=== PATIENT | female | born 1970 | race Caucasian/White ===

== ENCOUNTER 2017-01-16 08:18 | Inpatient (IN) | payer BC ==
--- NOTE | 2017-01-16 08:20 | EDM.PDOC ---
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 Code(s): M15.0 - Primary generalized (osteo)arthritis - Discharge Information - Problem List & Annotations (1) Ketoacidosis SNOMED Code(s): 15244752 Code(s): E87.2 - ACIDOSIS Status: Acute Priority: High Current Visit: Yes Onset Date: 01/16/17 Annotation/Comment:: Ketoacidosis likely secondary to decompensated IDDM from her cellulitis as below. No direct evidence of a UTI , although urine culture set up for culture and sensitivity. Insulin infusion regimen, including initial IV bolus of Humulin regular initiated in the emergency room (2) Cellulitis SNOMED Code(s): 758348267 Code(s): L03.90 - CELLULITIS, UNSPECIFIED Status: Acute Priority: High Current Visit: Yes Onset Date: ~01/13/17 Annotation/Comment:: Progressive cellulitis as above. Note significant leukocytosis with blood cultures 2 collected. IV Rocephin initiated in the emergency room. Despite mild grade 2 diabetic foot ulcer no true opening, drainage, or area where wound culture specimen can be collected. Note possible beginning threatening lymphangitis. Consider additional antibiotic therapy depending on her clinical course. Patient would benefit from an order for diabetic shoes at discharge Qualifiers: Site of cellulitis: extremity Site of cellulitis of extremity: lower extremity Laterality: left Qualified Code(s): L03.116 - Cellulitis of left lower limb (3) Diabetic foot ulcer SNOMED Code(s): 634206394 Code(s): E11.621 - TYPE 2 DIABETES MELLITUS WITH FOOT ULCER; L97.509 - NON- PRESSURE CHRONIC ULCER OTH PRT UNSP FOOT W UNSP SEVERITY Status: Acute Priority: High Current Visit: Yes Onset Date: ~01/13/17 Annotation/Comment :: As above Qualifiers: Diabetic foot ulcer location: midfoot Diabetes mellitus type: type 2 Laterality: left Non-pressure ulcer stage: limited to breakdown of skin Qualified Code(s): E11.621 - Type 2 diabetes mellitus with foot ulcer; L97.421 - Non-pressure chronic ulcer of left heel and midfoot limited to breakdown of skin (4) IDDM (insulin dependent diabetes mellitus) SNOMED Code(s): 91726176 Code(s): E11.9 - TYPE 2 DIABETES MELLITUS WITHOUT COMPLICATIONS; Z79.4 - GROUP HOME (CURRENT) USE OF INSULIN Status: Chronic Priority: High Current Visit: Yes Annotation/Comment:: Compliance with Accu-Cheks and sliding scale encouraged as above. Patient is also somewhat behind on her routine preventative healthcare. Follow-up visits with her regular provider on at least an every 3 month basis was discussed with mammogram, etc. to be conducted VIJAYA (5) Osteoarthritis SNOMED Code(s): 235629493 Code(s): M19.90 - UNSPECIFIED OSTEOARTHRITIS, UNSPECIFIED SITE Status: Chronic Priority: Medium Current Visit: Yes Annotation/Comment:: Otherwise stable by history Qualifiers: Osteoarthritis location: multiple joints Osteoarthritis type: primary Qualified Code(s): M15.0 - Primary generalized (osteo)arthritis (6) Peptic reflux disease SNOMED Code(s): 54914710 Code(s): K21.9 - GASTRO-ESOPHAGEAL REFLUX DISEASE WITHOUT ESOPHAGITIS Status: Chronic Priority: Medium Current Visit: Yes Annotation/Comment:: Stable by history (7) Caries SNOMED Code(s): 24416881 Code(s): K02.9 - DENTAL CARIES, UNSPECIFIED Status: Acute Priority: Medium Current Visit: Yes Annotation/Comment:: Multiple caries with follow- up with her dentist VIJAYA after hospital discharge. Dental hygiene and its effect on her diabetes were discussed (8) Tobacco abuse counseling SNOMED Code(s): 125053391, 233216196, 746378925 Code(s): Z71.6 - TOBACCO ABUSE COUNSELING Status: Chronic Priority: Medium Current Visit: Yes Annotation/Comment:: Tobacco cessation strongly encouraged with tobacco cessation information to be provided at discharge - Problem List Review Problem List Initiated/Reviewed/Updated: Yes - My Orders Last 24 Hours: My Active Orders 01/16/17 08:21 Obtain Past Medical Record [OM.PC] Urgent Peripheral IV Insertion Adult [OM.PC] Routine 01/16/17 08:22 Peripheral IV Care [RC] . DIRECTED Sodium Chloride 0.9% [Saline Flush] 10 ml FLUSH ASDIRECTED PRN 01/16/17 08:32 CULTURE URINE [RM] Routine 01/16/17 09:03 Blood Culture x2 Reflex Set [OM.PC] Urgent 01/16/17 09:11 CULTURE BLOOD [BC] Stat CULTURE BLOOD [BC] Stat 01/16/17 09:29 ACETONE,URINE [URCHEM] Stat MICROALBUMIN,URINE RANDOM [URCHEM] Routine 01/16/17 09:45 Insulin Regular, Human [HumuLIN R] 100 unit Sodium Chloride 0.9% [Normal Saline] 99 ml IV TITRATE 01/16/17 09:47 Cardiac Monitoring [RC] . DIRECTED - Assessment/Plan Admission H&P: Please use this note as an admission H&P Last 24 Hours: My Active Orders 01/16/17 08:21 Obtain Past Medical Record [OM.PC] Urgent Peripheral IV Insertion Adult [OM.PC] Routine 01/16/17 08:22 Peripheral IV Care [RC] . DIRECTED Sodium Chloride 0.9% [Saline Flush] 10 ml FLUSH ASDIRECTED PRN 01/16/17 08:32 CULTURE URINE [RM] Routine 01/16/17 09:03 Blood Culture x2 Reflex Set [OM.PC] Urgent 01/16/17 09:11 CULTURE BLOOD [BC] Stat CULTURE BLOOD [BC] Stat 01/16/17 09:29 ACETONE,URINE [URCHEM] Stat MICROALBUMIN,URINE RANDOM [URCHEM] Routine 01/16/17 09:45 Insulin Regular, Human [HumuLIN R] 100 unit Sodium Chloride 0.9% [Normal Saline] 99 ml IV TITRATE 01/16/17 09:47 Cardiac Monitoring [RC] . DIRECTED Assessment:: As above Plan: As above. Extensive precautions were given to the patient, who is in agreement with the treatment plan. The patient will require about 3-4 days of inpatient/ acute care secondary to multiple health problems as above.
[2017-01-16] MEDS ORDERED: cefTRIAXone 2 GM in Sodium Chloride 0.9% 100 ML IV ONE (08:22)
[2017-01-16] MEDS: Sodium Chloride 0.9% 10 ML Syringe FLUSH PRN (08:52)
[2017-01-16 09:13] LABS: CHLORIDE,CL 91 mmol/L (98-107); SODIUM,NA 129 mmol/L (136-145)
[2017-01-16] MEDS ORDERED: Lactated Ringers 1,000 ML IV ONE (09:29)
[2017-01-16] MEDS ORDERED: Insulin Regular, Human 100 Units/ML 3 ML Vial IVPUSH ONE (09:41)
[2017-01-16] MEDS: Lactated Ringers 1,000 ML IV SCH ×2 (10:30→19:30)
[2017-01-16] MEDS ORDERED: Temazepam 15 MG Cap PO PRN (11:19)
[2017-01-16] MEDS ORDERED: Acetaminophen 650 MG Supp RECTAL PRN (11:19)
[2017-01-16] MEDS: Insulin Detemir 100 Units/ML 3 ML Pen SUBCUT SCH (12:44)
[2017-01-16 14:12] LABS: CHLORIDE,CL 99 mmol/L (98-107); SODIUM,NA 135 mmol/L (136-145)
[2017-01-16] MEDS: Insulin Aspart 100 Units/ML 3 ML Pen SUBCUT SCH ×3 (17:12→21:37)
[2017-01-16] MEDS: Famotidine 20 MG/2 ML SDV IVPUSH SCH (17:18)
[2017-01-16] MEDS: Sulfamethoxazole/Trimethoprim 800-160 MG Tab PO SCH (17:18)
[2017-01-16] MEDS ORDERED: Acetaminophen 325 MG Tab PO PRN (18:13)
[2017-01-16 19:07] LABS: CHLORIDE,CL 97 mmol/L (98-107); SODIUM,NA 132 mmol/L (136-145)
[2017-01-16] MEDS ORDERED: Lactated Ringers 1,000 ML IV SCH (19:45)
[2017-01-16] MEDS: cefTRIAXone 1 GM in Sodium Chloride 0.9% 100 ML IV SCH (21:35)
[2017-01-17 08:06] LABS: CHLORIDE,CL 99 mmol/L (98-107); SODIUM,NA 134 mmol/L (136-145)
[2017-01-17] MEDS: Aspirin 81 MG Tab.EC PO SCH (08:08)
[2017-01-17] MEDS: Sulfamethoxazole/Trimethoprim 800-160 MG Tab PO SCH ×2 (08:08→17:33)
[2017-01-17] MEDS: Insulin Aspart 100 Units/ML 3 ML Pen SUBCUT SCH ×2 (08:10→11:27)
[2017-01-17] MEDS: Famotidine 20 MG/2 ML SDV IVPUSH SCH ×2 (08:14→17:34)
[2017-01-17] MEDS: Sodium Chloride 0.9% 10 ML Syringe FLUSH PRN ×4 (09:18→21:01)
[2017-01-17] MEDS: cefTRIAXone 1 GM in Sodium Chloride 0.9% 100 ML IV SCH ×2 (09:18→20:56)
[2017-01-17] MEDS: Insulin Detemir 100 Units/ML 3 ML Pen SUBCUT SCH (10:04)
--- NOTE | 2017-01-17 14:09 | PCM.PN ---
- General Info Date of Service: 01/17/17 Admission Dx/Problem (Free Text): 1. Ketoacidosis 2. Cellulitis with possible sepsis 3. IDDM 4. Hyponatremia Subjective Update: As below Functional Status: Reports: Pain Controlled, Tolerating Diet, Ambulating, Urinating. Denies: New Symptoms, Incentive Spirometry Pain Score: 2 (Occasional persistent left foot pain while standing with no further radiation to the inguinal region, etc.) - Review of Systems General: Reports: No Symptoms. Denies: Fever, Weakness, Fatigue, Malaise, Chills, Night Sweats, Appetite (Appetite good) HEENT: Reports: No Symptoms. Denies: Ear Pain, Eye Pain, Headaches, Post Nasal Drip, Sinus Congestion, Sore Throat, Rhinitis, Visual Changes Pulmonary: Reports: No Symptoms. Denies: Shortness of Breath, Pleuritic Chest Pain, Cough, Wheezing Cardiovascular: Reports: No Symptoms. Denies: Chest Pain, Palpitations, Dyspnea on Exertion, Orthopnea, PND, Edema, Lightheadedness Gastrointestinal: Reports: No Symptoms, Other (Excellent bowel movement earlier today). Denies: Abdominal Pain, Constipation, Decreased Appetite, Diarrhea, Difficulty Swallowing, Flatus, Hematochezia, Melena, Nausea, Vomiting Genitourinary: Reports: No Symptoms. Denies: Dysuria, Frequency, Burning, Pain , Urgency, Incontinence, Hematuria, Retention, Flank Pain Musculoskeletal: Reports: Foot Pain (As above). Denies: Neck Pain, Shoulder Pain, Arm Pain, Hand Pain, Back Pain, Leg Pain, Joint Pain, Joint Swelling Skin: Reports: Other (New drainage from diabetic foot ulcer). Denies: Diaphoresis, Bruising Neurological: Reports: No Symptoms. Denies: Confusion, Dizziness, Numbness, Paresthesia, Tingling, Difficulty Walking, Weakness Psychiatric: Reports: Depression (Mild secondary to her diabetes), Mood Lability (Tearful). Denies: Confusion, Anxiety, Agitation, Cravings, Hallucinations, Suicidal Ideation, Homicidal Ideation - Patient Data Vitals - Most Recent: Last Vital Signs Temp 37.0 C 01/17/17 11:26 Pulse 87 01/17/17 11:26 Resp 17 01/17/17 11:26 BP 140/83 01/17/17 11:26 Pulse Ox 97 01/17/17 11:26 Vital Signs - 24 hr 01/16/17 01/16/17 01/17/17 16:00 18:00 00:00 Temperature [ 37.2 C 38.7 C H 36.8 C Oral] Pulse, 98 96 90 Peripheral [ Right Pulse Oximetry] Respiratory 18 18 14 Rate Blood Pressure 146/79 H 149/63 H 135/62 [Right Upper Arm] O2 Sat by Pulse 96 96 91 L Oximetry 01/17/17 01/17/17 06:00 11:26 Temperature [ 37.4 C 37.0 C Oral] Pulse, 94 87 Peripheral [ Right Pulse Oximetry] Respiratory 17 17 Rate Blood Pressure 123/68 140/83 [Right Upper Arm] O2 Sat by Pulse 96 97 Oximetry Weight - Most Recent: 70.488 kg I&O - Last 24 Hours: Intake & Output 01/16/17 01/17/17 01/17/17 22:59 06:59 14:59 Intake Total 1240 Balance 1240 Imaging Impressions - Last 24 Hours: library monitor shows normal sinus rhythm with average heart rate in the 80s with mild sinus arrhythmia however no ectopy or other significant arrhythmia Lab Results Last 24 Hours: Laboratory Results - last 24 hr 01/16/17 01/16/17 01/16/17 Range/Units 13:37 15:35 17:04 WBC (4.0-10.2) K/uL RBC (3.77-5.09) M/uL Hgb (11.7-15.5) g/dL Hct (34.0-46.0) % MCV (84.0-98.0) fL MCH (28.2-33.3) pg MCHC (31.7-36.0) g/dL RDW (11.2-14.1) % Plt Count (150-350) K/uL Neut % (Auto) (45.0-80.0) % Lymph % (Auto) (10.0-50.0) % [place] % (Auto) (2.0-14.0) % Eos % (Auto) (0.0-5.0) % Baso % (Auto) (0.0-2.0) % Neut # (Auto) (1.40-7.00) K/uL Lymph # (Auto) (0.50-3.50) K/uL [place] # (Auto) (0.00-1.00) K/uL Eos # (Auto) (0.00-0.50) K/uL Baso # (Auto) (0.00-0.20) K/uL Sodium 135 L (136-145) mmol/L Potassium 4.5 (3.5-5.1) mmol/L Chloride 99 (98-107) mmol/L Carbon Dioxide 29.9 (21.0-32.0) mmol/L BUN 16 (7-18) mg/dL Creatinine 0.57 (0.51-1.17) mg/dL Est Cr Clr Drug Dosing 131.05 mL/min Estimated GFR (MDRD) > 60 mL/min Glucose 222 H 67 L (74-106) mg/dL POC Glucose 66 (65-110) mg/dl Lactic Acid (0.4-2.0) mmol/L Calcium 9.3 (8.5-10.1) mg/dL Phosphorus (2.6-4.7) mg/dL Total Bilirubin (0.2-1.0) mg/dL AST (15-37) U/L ALT (12-78) U/L Alkaline Phosphatase (46-116) IU/L Fly-J-Lmzmyattwec Pept 408 H (0-125) pg/mL Total Protein (6.4-8.2) g/dL Albumin (3.4-5.0) g/dL Ketones 01/16/17 01/16/17 01/17/17 Range/Units 18:48 21:19 00:27 WBC (4.0-10.2) K/uL RBC (3.77-5.09) M/uL Hgb (11.7-15.5) g/dL Hct (34.0-46.0) % MCV (84.0-98.0) fL MCH (28.2-33.3) pg MCHC (31.7-36.0) g/dL RDW (11.2-14.1) % Plt Count (150-350) K/uL Neut % (Auto) (45.0-80.0) % Lymph % (Auto) (10.0-50.0) % [place] % (Auto) (2.0-14.0) % Eos % (Auto) (0.0-5.0) % Baso % (Auto) (0.0-2.0) % Neut # (Auto) (1.40-7.00) K/uL Lymph # (Auto) (0.50-3.50) K/uL [place] # (Auto) (0.00-1.00) K/uL Eos # (Auto) (0.00-0.50) K/uL Baso # (Auto) (0.00-0.20) K/uL Sodium 132 L (136-145) mmol/L Potassium 4.7 (3.5-5.1) mmol/L Chloride 97 L (98-107) mmol/L Carbon Dioxide 29.1 (21.0-32.0) mmol/L BUN 14 (7-18) mg/dL Creatinine 0.55 (0.51-1.17) mg/dL Est Cr Clr Drug Dosing 135.82 mL/min Estimated GFR (MDRD) > 60 mL/min Glucose 132 H (74-106) mg/dL POC Glucose 108 51 L (65-110) mg/dl Lactic Acid (0.4-2.0) mmol/L Calcium 9.1 (8.5-10.1) mg/dL Phosphorus (2.6-4.7) mg/dL Total Bilirubin (0.2-1.0) mg/dL AST (15-37) U/L ALT (12-78) U/L Alkaline Phosphatase (46-116) IU/L Rjx-S-Afouwyyxasd Pept (0-125) pg/mL Total Protein (6.4-8.2) g/dL Albumin (3.4-5.0) g/dL Ketones 01/17/17 01/17/17 01/17/17 Range/Units 02:25 07:30 07:30 WBC 12.3 H (4.0-10.2) K/uL RBC 3.17 L (3.77-5.09) M/uL Hgb 10.2 L D (11.7-15.5) g/dL Hct 30.1 L (34.0-46.0) % MCV 95.0 (84.0-98.0) fL MCH 32.2 (28.2-33.3) pg MCHC 33.9 (31.7-36.0) g/dL RDW 12.5 (11.2-14.1) % Plt Count 247 (150-350) K/uL Neut % (Auto) 76.7 (45.0-80.0) % Lymph % (Auto) 11.5 (10.0-50.0) % [place] % (Auto) 7.7 (2.0-14.0) % Eos % (Auto) 3.7 (0.0-5.0) % Baso % (Auto) 0.4 (0.0-2.0) % Neut # (Auto) 9.42 H (1.40-7.00) K/uL Lymph # (Auto) 1.41 (0.50-3.50) K/uL [place] # (Auto) 0.94 (0.00-1.00) K/uL Eos # (Auto) 0.46 (0.00-0.50) K/uL Baso # (Auto) 0.05 (0.00-0.20) K/uL Sodium 134 L (136-145) mmol/L Potassium 4.5 (3.5-5.1) mmol/L Chloride 99 (98-107) mmol/L Carbon Dioxide 31.0 (21.0-32.0) mmol/L BUN 12 (7-18) mg/dL Creatinine 0.56 (0.51-1.17) mg/dL Est Cr Clr Drug Dosing 133.39 mL/min Estimated GFR (MDRD) > 60 mL/min Glucose 166 H (74-106) mg/dL POC Glucose 106 (65-110) mg/dl Lactic Acid (0.4-2.0) mmol/L Calcium 9.0 (8.5-10.1) mg/dL Phosphorus 4.0 (2.6-4.7) mg/dL Total Bilirubin 0.2 (0.2-1.0) mg/dL AST 20 (15-37) U/L ALT 23 (12-78) U/L Alkaline Phosphatase 107 (46-116) IU/L Yho-L-Hgjqfnjdqws Pept (0-125) pg/mL Total Protein 6.4 (6.4-8.2) g/dL Albumin 2.6 L (3.4-5.0) g/dL Ketones 01/17/17 01/17/17 01/17/17 Range/Units 07:30 07:30 08:04 WBC (4.0-10.2) K/uL RBC (3.77-5.09) M/uL Hgb (11.7-15.5) g/dL Hct (34.0-46.0) % MCV (84.0-98.0) fL MCH (28.2-33.3) pg MCHC (31.7-36.0) g/dL RDW (11.2-14.1) % Plt Count (150-350) K/uL Neut % (Auto) (45.0-80.0) % Lymph % (Auto) (10.0-50.0) % [place] % (Auto) (2.0-14.0) % Eos % (Auto) (0.0-5.0) % Baso % (Auto) (0.0-2.0) % Neut # (Auto) (1.40-7.00) K/uL Lymph # (Auto) (0.50-3.50) K/uL [place] # (Auto) (0.00-1.00) K/uL Eos # (Auto) (0.00-0.50) K/uL Baso # (Auto) (0.00-0.20) K/uL Sodium (136-145) mmol/L Potassium (3.5-5.1) mmol/L Chloride (98-107) mmol/L Carbon Dioxide (21.0-32.0) mmol/L BUN (7-18) mg/dL Creatinine (0.51-1.17) mg/dL Est Cr Clr Drug Dosing mL/min Estimated GFR (MDRD) mL/min Glucose (74-106) mg/dL POC Glucose 204 H (65-110) mg/dl Lactic Acid 0.7 (0.4-2.0) mmol/L Calcium (8.5-10.1) mg/dL Phosphorus (2.6-4.7) mg/dL Total Bilirubin (0.2-1.0) mg/dL AST (15-37) U/L ALT (12-78) U/L Alkaline Phosphatase (46-116) IU/L Lhs-C-Nhsstdisxpu Pept (0-125) pg/mL Total Protein (6.4-8.2) g/dL Albumin (3.4-5.0) g/dL Ketones Negative Laboratory Tests 01/16/17 01/16/17 01/16/17 Range/Units 08:32 08:32 08:40 WBC 18.0 H (4.0-10.2) K/uL RBC 3.66 L (3.77-5.09) M/uL Hgb 11.7 D (11.7-15.5) g/dL Hct 35.5 (34.0-46.0) % MCV 97.0 D (84.0-98.0) fL MCH 32.0 (28.2-33.3) pg MCHC 33.0 (31.7-36.0) g/dL RDW 13.0 (11.2-14.1) % Plt Count 237 (150-350) K/uL Neut % (Auto) 89.8 H (45.0-80.0) % Lymph % (Auto) 4.1 L (10.0-50.0) % [place] % (Auto) 5.1 (2.0-14.0) % Eos % (Auto) 0.8 (0.0-5.0) % Baso % (Auto) 0.2 (0.0-2.0) % Neut # (Auto) 16.13 H (1.40-7.00) K/uL Lymph # (Auto) 0.74 (0.50-3.50) K/uL [place] # (Auto) 0.91 (0.00-1.00) K/uL Eos # (Auto) 0.15 (0.00-0.50) K/uL Baso # (Auto) 0.04 (0.00-0.20) K/uL Sodium (136-145) mmol/L Potassium (3.5-5.1) mmol/L Chloride (98-107) mmol/L Carbon Dioxide (21.0-32.0) mmol/L BUN (7-18) mg/dL Creatinine (0.51-1.17) mg/dL Est Cr Clr Drug Dosing mL/min Estimated GFR (MDRD) mL/min Glucose (74-106) mg/dL POC Glucose (65-110) mg/dl Hemoglobin A1c (4.3-5.7) % Lactic Acid (0.4-2.0) mmol/L Uric Acid (2.6-7.2) mg/dL Calcium (8.5-10.1) mg/dL Phosphorus (2.6-4.7) mg/dL Total Bilirubin (0.2-1.0) mg/dL AST (15-37) U/L ALT (12-78) U/L Alkaline Phosphatase (46-116) IU/L Qaj-G-Giktjppfdwa Pept (0-125) pg/mL Total Protein (6.4-8.2) g/dL Albumin (3.4-5.0) g/dL Specimen Type Urincc Urine Color Light yellow Urine Appearance Slightly cloudy Urine pH 6.0 (5.0-9.0) Ur Specific [place] <= 1.005 (1.005-1.030) Urine Protein Negative (NEGATIVE) mg/dL Urine Glucose (UA) 500 H (NEGATIVE) mg/dL Urine Ketones 40 H (NEGATIVE) mg/dL Urine Occult Blood Trace-intact H (NEGATIVE) Urine Nitrite Negative (NEGATIVE) Urine Bilirubin Negative (NEGATIVE) Urine Acetone (NEGATIVE) Urine Urobilinogen 0.2 (0.2-1.0) E.U./dL Ur Leukocyte Esterase Negative (NEGATIVE) Urine RBC 0-5 /HPF Urine WBC 0-5 /HPF Ur Epithelial Cells Many H /LPF Urine Bacteria Many H (NONE TO FEW) /HPF Ur Random Microalbumin 50 (NEGATIVE) mg/L Ketones 01/16/17 01/16/17 01/16/17 Range/Units 08:40 08:40 08:40 WBC (4.0-10.2) K/uL RBC (3.77-5.09) M/uL Hgb (11.7-15.5) g/dL Hct (34.0-46.0) % MCV (84.0-98.0) fL MCH (28.2-33.3) pg MCHC (31.7-36.0) g/dL RDW (11.2-14.1) % Plt Count (150-350) K/uL Neut % (Auto) (45.0-80.0) % Lymph % (Auto) (10.0-50.0) % [place] % (Auto) (2.0-14.0) % Eos % (Auto) (0.0-5.0) % Baso % (Auto) (0.0-2.0) % Neut # (Auto) (1.40-7.00) K/uL Lymph # (Auto) (0.50-3.50) K/uL [place] # (Auto) (0.00-1.00) K/uL Eos # (Auto) (0.00-0.50) K/uL Baso # (Auto) (0.00-0.20) K/uL Sodium 129 L (136-145) mmol/L Potassium 5.0 (3.5-5.1) mmol/L Chloride 91 L (98-107) mmol/L Carbon Dioxide 22.4 (21.0-32.0) mmol/L BUN 18 (7-18) mg/dL Creatinine 0.69 (0.51-1.17) mg/dL Est Cr Clr Drug Dosing 108.26 mL/min Estimated GFR (MDRD) > 60 mL/min Glucose 656 H* (74-106) mg/dL POC Glucose (65-110) mg/dl Hemoglobin A1c 13.0 H (4.3-5.7) % Lactic Acid (0.4-2.0) mmol/L Uric Acid 4.3 (2.6-7.2) mg/dL Calcium 9.5 (8.5-10.1) mg/dL Phosphorus (2.6-4.7) mg/dL Total Bilirubin 0.6 (0.2-1.0) mg/dL AST 18 (15-37) U/L ALT 28 (12-78) U/L Alkaline Phosphatase 146 H (46-116) IU/L Jjg-G-Unetbazbmck Pept (0-125) pg/mL Total Protein 7.6 (6.4-8.2) g/dL Albumin 3.4 (3.4-5.0) g/dL Specimen Type Urine Color Urine Appearance Urine pH (5.0-9.0) Ur Specific [place] (1.005-1.030) Urine Protein (NEGATIVE) mg/dL Urine Glucose (UA) (NEGATIVE) mg/dL Urine Ketones (NEGATIVE) mg/dL Urine Occult Blood (NEGATIVE) Urine Nitrite (NEGATIVE) Urine Bilirubin (NEGATIVE) Urine Acetone (NEGATIVE) Urine Urobilinogen (0.2-1.0) E.U./dL Ur Leukocyte Esterase (NEGATIVE) Urine RBC /HPF Urine WBC /HPF Ur Epithelial Cells /LPF Urine Bacteria (NONE TO FEW) /HPF Ur Random Microalbumin (NEGATIVE) mg/L Ketones 01/16/17 01/16/17 01/16/17 Range/Units 08:40 08:40 08:40 WBC (4.0-10.2) K/uL RBC (3.77-5.09) M/uL Hgb (11.7-15.5) g/dL Hct (34.0-46.0) % MCV (84.0-98.0) fL MCH (28.2-33.3) pg MCHC (31.7-36.0) g/dL RDW (11.2-14.1) % Plt Count (150-350) K/uL Neut % (Auto) (45.0-80.0) % Lymph % (Auto) (10.0-50.0) % [place] % (Auto) (2.0-14.0) % Eos % (Auto) (0.0-5.0) % Baso % (Auto) (0.0-2.0) % Neut # (Auto) (1.40-7.00) K/uL Lymph # (Auto) (0.50-3.50) K/uL [place] # (Auto) (0.00-1.00) K/uL Eos # (Auto) (0.00-0.50) K/uL Baso # (Auto) (0.00-0.20) K/uL Sodium (136-145) mmol/L Potassium (3.5-5.1) mmol/L Chloride (98-107) mmol/L Carbon Dioxide (21.0-32.0) mmol/L BUN (7-18) mg/dL Creatinine (0.51-1.17) mg/dL Est Cr Clr Drug Dosing mL/min Estimated GFR (MDRD) mL/min Glucose (74-106) mg/dL POC Glucose (65-110) mg/dl Hemoglobin A1c (4.3-5.7) % Lactic Acid 1.3 (0.4-2.0) mmol/L Uric Acid (2.6-7.2) mg/dL Calcium (8.5-10.1) mg/dL Phosphorus 4.1 (2.6-4.7) mg/dL Total Bilirubin (0.2-1.0) mg/dL AST (15-37) U/L ALT (12-78) U/L Alkaline Phosphatase (46-116) IU/L Tbb-F-Mzqqozaxehe Pept (0-125) pg/mL Total Protein (6.4-8.2) g/dL Albumin (3.4-5.0) g/dL Specimen Type Urine Color Urine Appearance Urine pH (5.0-9.0) Ur Specific [place] (1.005-1.030) Urine Protein (NEGATIVE) mg/dL Urine Glucose (UA) (NEGATIVE) mg/dL Urine Ketones (NEGATIVE) mg/dL Urine Occult Blood (NEGATIVE) Urine Nitrite (NEGATIVE) Urine Bilirubin (NEGATIVE) Urine Acetone (NEGATIVE) Urine Urobilinogen (0.2-1.0) E.U./dL Ur Leukocyte Esterase (NEGATIVE) Urine RBC /HPF Urine WBC /HPF Ur Epithelial Cells /LPF Urine Bacteria (NONE TO FEW) /HPF Ur Random Microalbumin (NEGATIVE) mg/L Ketones Positive 01/16/17 01/16/17 01/16/17 Range/Units 09:29 10:28 11:25 WBC (4.0-10.2) K/uL RBC (3.77-5.09) M/uL Hgb (11.7-15.5) g/dL Hct (34.0-46.0) % MCV (84.0-98.0) fL MCH (28.2-33.3) pg MCHC (31.7-36.0) g/dL RDW (11.2-14.1) % Plt Count (150-350) K/uL Neut % (Auto) (45.0-80.0) % Lymph % (Auto) (10.0-50.0) % [place] % (Auto) (2.0-14.0) % Eos % (Auto) (0.0-5.0) % Baso % (Auto) (0.0-2.0) % Neut # (Auto) (1.40-7.00) K/uL Lymph # (Auto) (0.50-3.50) K/uL [place] # (Auto) (0.00-1.00) K/uL Eos # (Auto) (0.00-0.50) K/uL Baso # (Auto) (0.00-0.20) K/uL Sodium (136-145) mmol/L Potassium (3.5-5.1) mmol/L Chloride (98-107) mmol/L Carbon Dioxide (21.0-32.0) mmol/L BUN (7-18) mg/dL Creatinine (0.51-1.17) mg/dL Est Cr Clr Drug Dosing mL/min Estimated GFR (MDRD) mL/min Glucose 410 H* (74-106) mg/dL POC Glucose 453 H* (65-110) mg/dl Hemoglobin A1c (4.3-5.7) % Lactic Acid (0.4-2.0) mmol/L Uric Acid (2.6-7.2) mg/dL Calcium (8.5-10.1) mg/dL Phosphorus (2.6-4.7) mg/dL Total Bilirubin (0.2-1.0) mg/dL AST (15-37) U/L ALT (12-78) U/L Alkaline Phosphatase (46-116) IU/L Zor-Z-Bdjgdpqlurt Pept (0-125) pg/mL Total Protein (6.4-8.2) g/dL Albumin (3.4-5.0) g/dL Specimen Type Urine Color Urine Appearance Urine pH (5.0-9.0) Ur Specific [place] (1.005-1.030) Urine Protein (NEGATIVE) mg/dL Urine Glucose (UA) (NEGATIVE) mg/dL Urine Ketones (NEGATIVE) mg/dL Urine Occult Blood (NEGATIVE) Urine Nitrite (NEGATIVE) Urine Bilirubin (NEGATIVE) Urine Acetone Small H (NEGATIVE) Urine Urobilinogen (0.2-1.0) E.U./dL Ur Leukocyte Esterase (NEGATIVE) Urine RBC /HPF Urine WBC /HPF Ur Epithelial Cells /LPF Urine Bacteria (NONE TO FEW) /HPF Ur Random Microalbumin 0 (NEGATIVE) mg/L Ketones 01/16/17 01/16/17 01/16/17 Range/Units 12:35 13:37 15:35 WBC (4.0-10.2) K/uL RBC (3.77-5.09) M/uL Hgb (11.7-15.5) g/dL Hct (34.0-46.0) % MCV (84.0-98.0) fL MCH (28.2-33.3) pg MCHC (31.7-36.0) g/dL RDW (11.2-14.1) % Plt Count (150-350) K/uL Neut % (Auto) (45.0-80.0) % Lymph % (Auto) (10.0-50.0) % [place] % (Auto) (2.0-14.0) % Eos % (Auto) (0.0-5.0) % Baso % (Auto) (0.0-2.0) % Neut # (Auto) (1.40-7.00) K/uL Lymph # (Auto) (0.50-3.50) K/uL [place] # (Auto) (0.00-1.00) K/uL Eos # (Auto) (0.00-0.50) K/uL Baso # (Auto) (0.00-0.20) K/uL Sodium 135 L (136-145) mmol/L Potassium 4.5 (3.5-5.1) mmol/L Chloride 99 (98-107) mmol/L Carbon Dioxide 29.9 (21.0-32.0) mmol/L BUN 16 (7-18) mg/dL Creatinine 0.57 (0.51-1.17) mg/dL Est Cr Clr Drug Dosing 131.05 mL/min Estimated GFR (MDRD) > 60 mL/min Glucose 317 H* 222 H 67 L (74-106) mg/dL POC Glucose (65-110) mg/dl Hemoglobin A1c (4.3-5.7) % Lactic Acid (0.4-2.0) mmol/L Uric Acid (2.6-7.2) mg/dL Calcium 9.3 (8.5-10.1) mg/dL Phosphorus (2.6-4.7) mg/dL Total Bilirubin (0.2-1.0) mg/dL AST (15-37) U/L ALT (12-78) U/L Alkaline Phosphatase (46-116) IU/L Fmi-T-Jedeohiapwg Pept 408 H (0-125) pg/mL Total Protein (6.4-8.2) g/dL Albumin (3.4-5.0) g/dL Specimen Type Urine Color Urine Appearance Urine pH (5.0-9.0) Ur Specific [place] (1.005-1.030) Urine Protein (NEGATIVE) mg/dL Urine Glucose (UA) (NEGATIVE) mg/dL Urine Ketones (NEGATIVE) mg/dL Urine Occult Blood (NEGATIVE) Urine Nitrite (NEGATIVE) Urine Bilirubin (NEGATIVE) Urine Acetone (NEGATIVE) Urine Urobilinogen (0.2-1.0) E.U./dL Ur Leukocyte Esterase (NEGATIVE) Urine RBC /HPF Urine WBC /HPF Ur Epithelial Cells /LPF Urine Bacteria (NONE TO FEW) /HPF Ur Random Microalbumin (NEGATIVE) mg/L Ketones 01/16/17 01/16/17 01/16/17 Range/Units 17:04 18:48 21:19 WBC (4.0-10.2) K/uL RBC (3.77-5.09) M/uL Hgb (11.7-15.5) g/dL Hct (34.0-46.0) % MCV (84.0-98.0) fL MCH (28.2-33.3) pg MCHC (31.7-36.0) g/dL RDW (11.2-14.1) % Plt Count (150-350) K/uL Neut % (Auto) (45.0-80.0) % Lymph % (Auto) (10.0-50.0) % [place] % (Auto) (2.0-14.0) % Eos % (Auto) (0.0-5.0) % Baso % (Auto) (0.0-2.0) % Neut # (Auto) (1.40-7.00) K/uL Lymph # (Auto) (0.50-3.50) K/uL [place] # (Auto) (0.00-1.00) K/uL Eos # (Auto) (0.00-0.50) K/uL Baso # (Auto) (0.00-0.20) K/uL Sodium 132 L (136-145) mmol/L Potassium 4.7 (3.5-5.1) mmol/L Chloride 97 L (98-107) mmol/L Carbon Dioxide 29.1 (21.0-32.0) mmol/L BUN 14 (7-18) mg/dL Creatinine 0.55 (0.51-1.17) mg/dL Est Cr Clr Drug Dosing 135.82 mL/min Estimated GFR (MDRD) > 60 mL/min Glucose 132 H (74-106) mg/dL POC Glucose 66 108 (65-110) mg/dl Hemoglobin A1c (4.3-5.7) % Lactic Acid (0.4-2.0) mmol/L Uric Acid (2.6-7.2) mg/dL Calcium 9.1 (8.5-10.1) mg/dL Phosphorus (2.6-4.7) mg/dL Total Bilirubin (0.2-1.0) mg/dL AST (15-37) U/L ALT (12-78) U/L Alkaline Phosphatase (46-116) IU/L Rhv-U-Knudkujkdwj Pept (0-125) pg/mL Total Protein (6.4-8.2) g/dL Albumin (3.4-5.0) g/dL Specimen Type Urine Color Urine Appearance Urine pH (5.0-9.0) Ur Specific [place] (1.005-1.030) Urine Protein (NEGATIVE) mg/dL Urine Glucose (UA) (NEGATIVE) mg/dL Urine Ketones (NEGATIVE) mg/dL Urine Occult Blood (NEGATIVE) Urine Nitrite (NEGATIVE) Urine Bilirubin (NEGATIVE) Urine Acetone (NEGATIVE) Urine Urobilinogen (0.2-1.0) E.U./dL Ur Leukocyte Esterase (NEGATIVE) Urine RBC /HPF Urine WBC /HPF Ur Epithelial Cells /LPF Urine Bacteria (NONE TO FEW) /HPF Ur Random Microalbumin (NEGATIVE) mg/L Ketones 01/17/17 01/17/17 01/17/17 Range/Units 00:27 02:25 07:30 WBC 12.3 H (4.0-10.2) K/uL RBC 3.17 L (3.77-5.09) M/uL Hgb 10.2 L D (11.7-15.5) g/dL Hct 30.1 L (34.0-46.0) % MCV 95.0 (84.0-98.0) fL MCH 32.2 (28.2-33.3) pg MCHC 33.9 (31.7-36.0) g/dL RDW 12.5 (11.2-14.1) % Plt Count 247 (150-350) K/uL Neut % (Auto) 76.7 (45.0-80.0) % Lymph % (Auto) 11.5 (10.0-50.0) % [place] % (Auto) 7.7 (2.0-14.0) % Eos % (Auto) 3.7 (0.0-5.0) % Baso % (Auto) 0.4 (0.0-2.0) % Neut # (Auto) 9.42 H (1.40-7.00) K/uL Lymph # (Auto) 1.41 (0.50-3.50) K/uL [place] # (Auto) 0.94 (0.00-1.00) K/uL Eos # (Auto) 0.46 (0.00-0.50) K/uL Baso # (Auto) 0.05 (0.00-0.20) K/uL Sodium (136-145) mmol/L Potassium (3.5-5.1) mmol/L Chloride (98-107) mmol/L Carbon Dioxide (21.0-32.0) mmol/L BUN (7-18) mg/dL Creatinine (0.51-1.17) mg/dL Est Cr Clr Drug Dosing mL/min Estimated GFR (MDRD) mL/min Glucose (74-106) mg/dL POC Glucose 51 L 106 (65-110) mg/dl Hemoglobin A1c (4.3-5.7) % Lactic Acid (0.4-2.0) mmol/L Uric Acid (2.6-7.2) mg/dL Calcium (8.5-10.1) mg/dL Phosphorus (2.6-4.7) mg/dL Total Bilirubin (0.2-1.0) mg/dL AST (15-37) U/L ALT (12-78) U/L Alkaline Phosphatase (46-116) IU/L Iaa-T-Cethprdshly Pept (0-125) pg/mL Total Protein (6.4-8.2) g/dL Albumin (3.4-5.0) g/dL Specimen Type Urine Color Urine Appearance Urine pH (5.0-9.0) Ur Specific [place] (1.005-1.030) Urine Protein (NEGATIVE) mg/dL Urine Glucose (UA) (NEGATIVE) mg/dL Urine Ketones (NEGATIVE) mg/dL Urine Occult Blood (NEGATIVE) Urine Nitrite (NEGATIVE) Urine Bilirubin (NEGATIVE) Urine Acetone (NEGATIVE) Urine Urobilinogen (0.2-1.0) E.U./dL Ur Leukocyte Esterase (NEGATIVE) Urine RBC /HPF Urine WBC /HPF Ur Epithelial Cells /LPF Urine Bacteria (NONE TO FEW) /HPF Ur Random Microalbumin (NEGATIVE) mg/L Ketones 01/17/17 01/17/17 01/17/17 Range/Units 07:30 07:30 07:30 WBC (4.0-10.2) K/uL RBC (3.77-5.09) M/uL Hgb (11.7-15.5) g/dL Hct (34.0-46.0) % MCV (84.0-98.0) fL MCH (28.2-33.3) pg MCHC (31.7-36.0) g/dL RDW (11.2-14.1) % Plt Count (150-350) K/uL Neut % (Auto) (45.0-80.0) % Lymph % (Auto) (10.0-50.0) % [place] % (Auto) (2.0-14.0) % Eos % (Auto) (0.0-5.0) % Baso % (Auto) (0.0-2.0) % Neut # (Auto) (1.40-7.00) K/uL Lymph # (Auto) (0.50-3.50) K/uL [place] # (Auto) (0.00-1.00) K/uL Eos # (Auto) (0.00-0.50) K/uL Baso # (Auto) (0.00-0.20) K/uL Sodium 134 L (136-145) mmol/L Potassium 4.5 (3.5-5.1) mmol/L Chloride 99 (98-107) mmol/L Carbon Dioxide 31.0 (21.0-32.0) mmol/L BUN 12 (7-18) mg/dL Creatinine 0.56 (0.51-1.17) mg/dL Est Cr Clr Drug Dosing 133.39 mL/min Estimated GFR (MDRD) > 60 mL/min Glucose 166 H (74-106) mg/dL POC Glucose (65-110) mg/dl Hemoglobin A1c (4.3-5.7) % Lactic Acid 0.7 (0.4-2.0) mmol/L Uric Acid (2.6-7.2) mg/dL Calcium 9.0 (8.5-10.1) mg/dL Phosphorus 4.0 (2.6-4.7) mg/dL Total Bilirubin 0.2 (0.2-1.0) mg/dL AST 20 (15-37) U/L ALT 23 (12-78) U/L Alkaline Phosphatase 107 (46-116) IU/L Wan-M-Uutsxyqqfff Pept (0-125) pg/mL Total Protein 6.4 (6.4-8.2) g/dL Albumin 2.6 L (3.4-5.0) g/dL Specimen Type Urine Color Urine Appearance Urine pH (5.0-9.0) Ur Specific [place] (1.005-1.030) Urine Protein (NEGATIVE) mg/dL Urine Glucose (UA) (NEGATIVE) mg/dL Urine Ketones (NEGATIVE) mg/dL Urine Occult Blood (NEGATIVE) Urine Nitrite (NEGATIVE) Urine Bilirubin (NEGATIVE) Urine Acetone (NEGATIVE) Urine Urobilinogen (0.2-1.0) E.U./dL Ur Leukocyte Esterase (NEGATIVE) Urine RBC /HPF Urine WBC /HPF Ur Epithelial Cells /LPF Urine Bacteria (NONE TO FEW) /HPF Ur Random Microalbumin (NEGATIVE) mg/L Ketones Negative 01/17/17 Range/Units 08:04 WBC (4.0-10.2) K/uL RBC (3.77-5.09) M/uL Hgb (11.7-15.5) g/dL Hct (34.0-46.0) % MCV (84.0-98.0) fL MCH (28.2-33.3) pg MCHC (31.7-36.0) g/dL RDW (11.2-14.1) % Plt Count (150-350) K/uL Neut % (Auto) (45.0-80.0) % Lymph % (Auto) (10.0-50.0) % [place] % (Auto) (2.0-14.0) % Eos % (Auto) (0.0-5.0) % Baso % (Auto) (0.0-2.0) % Neut # (Auto) (1.40-7.00) K/uL Lymph # (Auto) (0.50-3.50) K/uL [place] # (Auto) (0.00-1.00) K/uL Eos # (Auto) (0.00-0.50) K/uL Baso # (Auto) (0.00-0.20) K/uL Sodium (136-145) mmol/L Potassium (3.5-5.1) mmol/L Chloride (98-107) mmol/L Carbon Dioxide (21.0-32.0) mmol/L BUN (7-18) mg/dL Creatinine (0.51-1.17) mg/dL Est Cr Clr Drug Dosing mL/min Estimated GFR (MDRD) mL/min Glucose (74-106) mg/dL POC Glucose 204 H (65-110) mg/dl Hemoglobin A1c (4.3-5.7) % Lactic Acid (0.4-2.0) mmol/L Uric Acid (2.6-7.2) mg/dL Calcium (8.5-10.1) mg/dL Phosphorus (2.6-4.7) mg/dL Total Bilirubin (0.2-1.0) mg/dL AST (15-37) U/L ALT (12-78) U/L Alkaline Phosphatase (46-116) IU/L Mct-A-Oinvkvcwdgz Pept (0-125) pg/mL Total Protein (6.4-8.2) g/dL Albumin (3.4-5.0) g/dL Specimen Type Urine Color Urine Appearance Urine pH (5.0-9.0) Ur Specific [place] (1.005-1.030) Urine Protein (NEGATIVE) mg/dL Urine Glucose (UA) (NEGATIVE) mg/dL Urine Ketones (NEGATIVE) mg/dL Urine Occult Blood (NEGATIVE) Urine Nitrite (NEGATIVE) Urine Bilirubin (NEGATIVE) Urine Acetone (NEGATIVE) Urine Urobilinogen (0.2-1.0) E.U./dL Ur Leukocyte Esterase (NEGATIVE) Urine RBC /HPF Urine WBC /HPF Ur Epithelial Cells /LPF Urine Bacteria (NONE TO FEW) /HPF Ur Random Microalbumin (NEGATIVE) mg/L Ketones [facility] Results Last 24 Hours: Microbiology 01/16/17 18:48 Urine Culture - Preliminary Urine, Clean Catch MIXED POSITIVE [facility] DAY 1 Above urine culture represents probable contamination Blood cultures 2 still pending Med Orders - Current: Current Medications Acetaminophen (Tylenol) 650 mg PO Q4H PRN PRN Reason: Pain (Mild 1-3)/fever Last Admin: 01/16/17 18:30 Dose: 650 mg Aspirin (Halfprin) 81 mg PO DAILY [facility] Last Admin: 01/17/17 08:08 Dose: 81 mg Famotidine (Pepcid) 20 mg IVPUSH BID [facility] Last Admin: 01/17/17 08:14 Dose: 20 mg Ceftriaxone Sodium 1 gm/ (Sodium Chloride) 100 mls @ 200 mls/hr IV Q12H [facility] Last Admin: 01/17/17 09:18 Dose: 200 mls/hr Lactated Ringer's (Ringers, Lactated) 1,000 mls @ 60 mls/hr IV ASDIRECTED [facility] Insulin Aspart (Novolog) 0 unit SUBCUT ACBED [facility] PRN Reason: Protocol Last Admin: 01/17/17 11:27 Dose: 6 units Insulin Aspart (Novolog Mix 70-30) 0 unit SUBCUT BIDAC [facility] PRN Reason: Protocol Insulin Detemir (Levemir) 40 unit SUBCUT QAM@1000 [facility] Last Admin: 01/17/17 10:04 Dose: 40 units Sodium Chloride (Saline Flush) 10 ml FLUSH ASDIRECTED PRN PRN Reason: Keep Vein Open Last Admin: 01/17/17 09:18 Dose: 10 ml Sodium Chloride (Saline Flush) 10 ml FLUSH Q12H PRN PRN Reason: Keep Vein Open Temazepam (Restoril) 15 mg PO BEDTIME PRN PRN Reason: Insomnia Trimethoprim/Sulfamethoxazole (Septra Ds) 1 tab PO BID [facility] Last Admin: 01/17/17 08:08 Dose: 1 tab Discontinued Medications Ceftriaxone Sodium 2 gm/ (Sodium Chloride) 100 mls @ 200 mls/hr IV ONETIME ONE Stop: 01/16/17 08:51 Last Admin: 01/16/17 08:52 Dose: 200 mls/hr Lactated Ringer's (Ringers, Lactated) 1,000 mls @ 999 mls/hr IV .BOLUS ONE Stop: 01/16/17 10:29 Last Admin: 01/16/17 10:00 Dose: 999 mls/hr Insulin Human Regular 100 unit (/ Sodium Chloride) 100 mls @ 6.8 mls/hr IV TITRATE RITU; 0.1 UNIT/KG/HR PRN Reason: Protocol Last Titration: 01/16/17 14:23 Dose: 0.08 unit/kg/hr, 5.8 mls/hr Lactated Ringer's (Ringers, Lactated) 1,000 mls @ 80 mls/hr IV ASDIRECTED RITU Last Admin: 01/16/17 19:30 Dose: 80 mls/hr Insulin Human Regular (Humulin R) 10 unit IVPUSH ONETIME ONE PRN Reason: Protocol Stop: 01/16/17 09:42 Last Admin: 01/16/17 09:57 Dose: 10 unit - Exam Quality Assessment: DVT Prophylaxis, Skin Breakdown (Grade two 2.5 cm diabetic foot ulcer in the mid distal plantar aspect of the left foot with new drainage since admission). No: Supplemental Oxygen, Central Line/PICC, Urine Catheter, Restraints General: Alert, Oriented, Cooperative, No Acute Distress HEENT: Pupils Equal, Pupils Reactive, EOMI, Mucous Membr. Moist/Roxana, Other ( Right auricular stud) Neck: Supple, Trachea Midline, No JVD, No Thyromegaly, +2 Carotid Pulse wo Bruit. No: Lymphadenopathy Lungs: Clear to Auscultation, Normal Respiratory Effort. No: Rales, Rhonchi, Rub, Wheezing Cardiovascular: Regular Rate, Regular Rhythm, No Murmurs. No: Gallops, Rubs GI/Abdominal Exam: Normal Bowel Sounds, Soft, Non-Tender, No Organomegaly, No Distention, No Abnormal Bruit, No Mass, Pelvis Stable (Female) Exam: Deferred Back Exam: Normal Inspection, Full Range of Motion. No: CVA Tenderness (L), CVA Tenderness (R), Muscle Spasm Extremities: Normal Range of Motion, No Pedal Edema, Normal Capillary Refill, Other (Minimal localized tenderness over site of the left diabetic foot ulcer as above with only trace erythema surrounding this ulceration although 4 cm in length area of lymphangitis extending to just below the medial malleolus). No: Paty's Sign, Increased Warmth Peripheral Pulses: 4+: Radial (L), Radial (R), Dorsalis Pedis (L), Dorsalis Pedis (R) Skin: Other (As above) Wound/Incisions: Drainage, Erythema Improving, Other (As above) Neurological: No New Focal Deficit Psy/Mental Status: Alert, Depressed (Mildly tearful secondary to her diabetes and difficulty with disease). No: Anxious, Agitated, Suicidal Ideation, Homicidal Ideation, Hallucinations, Withdrawal Symptoms - Problem List & Annotations (1) Ketoacidosis SNOMED Code(s): 24640391 Code(s): E87.2 - ACIDOSIS Status: Acute Priority: High Current Visit: Yes Onset Date: 01/16/17 Annotation/Comment:: Resolved Ketoacidosis which was likely secondary to decompensated IDDM from her cellulitis as below. Note significant leukocytosis on admission, which has significantly improved with aggressive antibiotic therapy. No direct evidence of a UTI with urine culture showing contamination. Initial concerns of possible threatening sepsis with no concerns at this time. Insulin infusion regimen, including initial IV bolus of Humulin regular, was initiated in the emergency room with excellent results and patient subsequent change to a 4 times a day NovoLog sliding scale. Secondary to problems with medication compliance, including sliding scale as per emergency room note, various therapeutic options were discussed with the patient. She does agree to changing her previous sliding scale to a NovoLog Mix twice a day subcutaneous sliding scale, which will be started for supper today. Her 3 AM Accu-Chek this past evening showed no evidence of hypoglycemia with this to be repeated this evening. She was provided a written copy of the above sliding scale. The patient did not wish to have further diabetic teaching. Continue to observe her emotional status closely with some tearing today. Emotional support was provided. The patient did not wish to have any medical therapy for her current stressors (2) Cellulitis SNOMED Code(s): 789961088 Code(s): L03.90 - CELLULITIS, UNSPECIFIED Status: Acute Priority: High Current Visit: Yes Onset Date: ~01/13/17 Qualifiers: Site of cellulitis: extremity Site of cellulitis of extremity: lower extremity Laterality: left Qualified Code(s): L03.116 - Cellulitis of left lower limb Annotation/Comment:: Significantly improved cellulitis as above. Blood cultures 2 collected. IV Rocephin initiated in the emergency room. Despite mild grade 2 diabetic foot ulcer no true opening or drainage at time of admission with wound culture specimen to be collected today. Patient would benefit from an order for diabetic shoes at discharge (3) Diabetic foot ulcer SNOMED Code(s): 706809618 Code(s): E11.621 - TYPE 2 DIABETES MELLITUS WITH FOOT ULCER; L97.509 - NON- PRESSURE CHRONIC ULCER OTH PRT UNSP FOOT W UNSP SEVERITY Status: Acute Priority: High Current Visit: Yes Onset Date: ~01/13/17 Qualifiers: Diabetic foot ulcer location: midfoot Diabetes mellitus type: type 2 Laterality: left Non-pressure ulcer stage: limited to breakdown of skin Qualified Code(s): E11.621 - Type 2 diabetes mellitus with foot ulcer; L97.421 - Non-pressure chronic ulcer of left heel and midfoot limited to breakdown of skin Annotation/Comment:: As above (4) IDDM (insulin dependent diabetes mellitus) SNOMED Code(s): 01725127 Code(s): E11.9 - TYPE 2 DIABETES MELLITUS WITHOUT COMPLICATIONS; Z79.4 - IP [employer]CTIONS ATTORNEY (CURRENT) USE OF INSULIN Status: Chronic Priority: High Current Visit: Yes Annotation/Comment:: Compliance with Accu-Cheks and sliding scale encouraged as above. Patient is also somewhat behind on her routine preventative healthcare. Follow-up visits with her regular provider on at least an every 3 month basis was discussed with mammogram, etc. to be conducted VIJAYA (5) Osteoarthritis SNOMED Code(s): 493710070 Code(s): M19.90 - UNSPECIFIED OSTEOARTHRITIS, UNSPECIFIED SITE Status: Chronic Priority: Medium Current Visit: Yes Qualifiers: Osteoarthritis location: multiple joints Osteoarthritis type: primary Qualified Code(s): M15.0 - Primary generalized (osteo)arthritis Annotation/Comment:: Otherwise stable by history (6) Peptic reflux disease SNOMED Code(s): 85028670 Code(s): K21.9 - GASTRO-ESOPHAGEAL REFLUX DISEASE WITHOUT ESOPHAGITIS Status: Chronic Priority: Medium Current Visit: Yes Annotation/Comment:: Stable by history (7) Caries SNOMED Code(s): 96719828 Code(s): K02.9 - DENTAL CARIES, UNSPECIFIED Status: Acute Priority: Medium Current Visit: Yes Annotation/Comment:: Multiple caries with follow- up with her dentist VIJAYA after hospital discharge. Dental hygiene and its effect on her diabetes were discussed (8) Tobacco abuse counseling SNOMED Code(s): 819428474, 581937167, 259493015 Code(s): Z71.6 - TOBACCO ABUSE COUNSELING Status: Chronic Priority: Medium Current Visit: Yes Annotation/Comment:: Tobacco cessation strongly encouraged with tobacco cessation information to be provided at discharge (9) Hyponatremia SNOMED Code(s): 13680607 Code(s): E87.1 - HYPO-OSMOLALITY AND HYPONATREMIA Status: Acute Priority : High Current Visit: Yes Onset Date: 01/16/17 Annotation/Comment:: Significant hyponatremia on admission with no evidence of confusion, etc. Note mildly elevated BNP yesterday, however fluids could not be stopped secondary to her ketoacidosis. Her hyponatremia has almost completely normalized with aggressive IV hydration with lactated Ringer's, which will be stopped at this time. Repeat blood work in the a.m. (10) CHF (congestive heart failure) SNOMED Code(s): 24351124 Code(s): I50.9 - HEART FAILURE, UNSPECIFIED Status: Acute Priority: High Current Visit: Yes Onset Date: 01/16/17 Qualifiers: Congestive heart failure type: unspecified congestive heart failure type Congestive heart failure chronicity: acute Qualified Code(s): I50.9 - Heart failure, unspecified Annotation/Comment:: Mild BNP elevation as above. Consider echocardiogram on an outpatient basis. Initiate lisinopril therapy later this afternoon. Fluid restriction will be added to her diabetic and heart healthy diet. No chest pain or anginal type symptoms, although cardiac enzymes, EKG, chest x-ray will be conducted in the a.m. as a baseline (11) Anemia SNOMED Code(s): 899151002 Code(s): D64.9 - ANEMIA, UNSPECIFIED Status: Acute Priority: High Current Visit: Yes Onset Date: 01/17/17 Qualifiers: Anemia type: unspecified type Qualified Code(s): D64.9 - Anemia, unspecified Annotation/Comment:: Note significant development of moderate anemia since admission possibly secondary to a rehydration effect with possible unknown previous baseline anemia. No abdominal pain or evidence of acute GI bleed. Specimens for H. pylori antigen and Hemoccult will be collected. Note that high- dose IV Pepcid was actually started yesterday with additional high-dose IV Protonix to be started today as a preventative measure. Further workup of her anemia including iron studies, vitamin B 12 level, and folic acid level have been ordered for tomorrow (12) Hypoalbuminemia SNOMED Code(s): 908147585 Code(s): E88.09 - OTH DISORDERS OF PLASMA-PROTEIN METABOLISM, NEC Status: Acute Priority: Medium Current Visit: Yes Onset Date: 01/17/17 Annotation/Comment:: Mild hypoalbuminemia. Initiate twice a day high-protein Glucerna supplements as snacks - Problem List Review Problem List Initiated/Reviewed/Updated: Yes - My Orders Last 24 Hours: My Active Orders 01/16/17 17:00 Blood Glucose Check, Bedside [RC] QIDACANDBED Insulin Aspart [NovoLOG] See Protocol SUBCUT ACBED 01/16/17 18:00 Famotidine [Pepcid] 20 mg IVPUSH BID Sulfamethoxazole/Trimethoprim [Septra DS] 1 tab PO BID 01/16/17 18:13 Acetaminophen [Tylenol] 650 mg PO Q4H PRN 01/16/17 19:45 Vital Signs [RC] Q6HR Lactated Ringers [Ringers, Lactated] 1,000 ml IV ASDIRECTED 01/16/17 21:30 cefTRIAXone [Rocephin] 1 gm Sodium Chloride 0.9% [Normal Saline] 100 ml IV Q12H 01/17/17 03:00 Blood Glucose Check, Bedside [RC] STAT 01/17/17 08:00 Aspirin [Halfprin] 81 mg PO DAILY 01/17/17 14:03 CULTURE WOUND + SMEAR [RM] Routine 01/17/17 17:00 Blood Glucose Check, Bedside [RC] BIDAC 01/17/17 17:30 Insuln Asp Prot/Insulin Aspart [NovoLOG Mix 70-30] See Protocol SUBCUT BIDAC 01/18/17 03:00 Blood Glucose Check, Bedside [RC] STAT - Assessment Assessment:: As above - Plan Plan:: As above. Erin brady assumes patient's care in the a.m.. Extensive precautions were given to the patient, who is in agreement with the treatment plan. She will require about 1-2 days of further inpatient/acute care
[2017-01-17] MEDS: Pantoprazole 40 MG Vial IVPUSH SCH (14:57)
[2017-01-17] MEDS ORDERED: Bacitracin/Neomycin/Polymyxin B Oint 0.9 GM U/D Packet TOP SCH (15:30)
[2017-01-17] MEDS: Insuln Aspart Prot/Insulin Aspart 100 Units/ML 3 ML FlexPen SUBCUT SCH (16:49)
[2017-01-17] MEDS: Lisinopril 10 MG Tab PO SCH (17:33)
[2017-01-17] MEDS: Bacitracin/Neomycin/Polymyxin B Oint 0.9 GM U/D Packet TOP SCH (20:56)
[2017-01-18] MEDS: Pantoprazole 40 MG Vial IVPUSH SCH ×2 (01:10→14:56)
[2017-01-18] MEDS: Sodium Chloride 0.9% 10 ML Syringe FLUSH PRN ×5 (01:11→14:56)
[2017-01-18] MEDS: Sulfamethoxazole/Trimethoprim 800-160 MG Tab PO SCH ×2 (07:08→17:10)
[2017-01-18] MEDS: Aspirin 81 MG Tab.EC PO SCH (07:09)
[2017-01-18] MEDS: Famotidine 20 MG/2 ML SDV IVPUSH SCH ×2 (07:09→17:10)
[2017-01-18] MEDS: Bacitracin/Neomycin/Polymyxin B Oint 0.9 GM U/D Packet TOP SCH (07:15)
[2017-01-18 08:02] LABS: CHLORIDE,CL 99 mmol/L (98-107); SODIUM,NA 132 mmol/L (136-145)
[2017-01-18] MEDS: Insuln Aspart Prot/Insulin Aspart 100 Units/ML 3 ML FlexPen SUBCUT SCH ×2 (08:10→17:07)
[2017-01-18] MEDS: cefTRIAXone 1 GM in Sodium Chloride 0.9% 100 ML IV SCH ×2 (10:22→21:02)
[2017-01-18] MEDS: Insulin Detemir 100 Units/ML 3 ML Pen SUBCUT SCH (10:30)
--- NOTE | 2017-01-18 14:55 | PCM.PN ---
- General Info Date of Service: 01/18/17 Admission Dx/Problem (Free Text): 1. Ketoacidosis 2. Cellulitis with possible sepsis 3. IDDM 4. Hyponatremia Subjective Update: As below Functional Status: Reports: Other (Pain control diabetic control) - Review of Systems General: Reports: No Symptoms HEENT: Reports: No Symptoms Pulmonary: Reports: No Symptoms Cardiovascular: Reports: No Symptoms Gastrointestinal: Reports: No Symptoms Genitourinary: Reports: No Symptoms Musculoskeletal: Reports: No Symptoms Skin: Reports: No Symptoms Neurological: Reports: No Symptoms Psychiatric: Reports: No Symptoms - Patient Data Vitals - Most Recent: Last Vital Signs Temp 99.1 F 01/18/17 12:00 Pulse 90 01/18/17 12:00 Resp 16 01/18/17 12:00 BP 106/68 01/18/17 12:00 Pulse Ox 96 01/18/17 12:00 Weight - Most Recent: 154 lb 15.759 oz I&O - Last 24 Hours: Intake & Output 01/17/17 01/18/17 01/18/17 22:59 06:59 14:59 Intake Total 900 1600 Output Total 1850 1000 900 Balance -950 -1000 700 Lab Results Last 24 Hours: Laboratory Results - last 24 hr 01/17/17 01/17/17 01/17/17 Range/Units 11:25 16:49 20:56 WBC (4.0-10.2) K/uL RBC (3.77-5.09) M/uL Hgb (11.7-15.5) g/dL Hct (34.0-46.0) % MCV (84.0-98.0) fL MCH (28.2-33.3) pg MCHC (31.7-36.0) g/dL RDW (11.2-14.1) % Plt Count (150-350) K/uL Neut % (Auto) (45.0-80.0) % Lymph % (Auto) (10.0-50.0) % Brewster % (Auto) (2.0-14.0) % Eos % (Auto) (0.0-5.0) % Baso % (Auto) (0.0-2.0) % Neut # (Auto) (1.40-7.00) K/uL Lymph # (Auto) (0.50-3.50) K/uL Brewster # (Auto) (0.00-1.00) K/uL Eos # (Auto) (0.00-0.50) K/uL Baso # (Auto) (0.00-0.20) K/uL Sodium (136-145) mmol/L Potassium (3.5-5.1) mmol/L Chloride (98-107) mmol/L Carbon Dioxide (21.0-32.0) mmol/L BUN (7-18) mg/dL Creatinine (0.51-1.17) mg/dL Est Cr Clr Drug Dosing mL/min Estimated GFR (MDRD) mL/min Glucose (74-106) mg/dL POC Glucose 248 H 92 192 H (65-110) mg/dl Calcium (8.5-10.1) mg/dL Iron (50-175) ug/dL TIBC (250-450) ug/dL % Saturation Ferritin (8-388) ng/mL Total Bilirubin (0.2-1.0) mg/dL AST (15-37) U/L ALT (12-78) U/L Alkaline Phosphatase (46-116) IU/L Creatine Kinase (26-308) U/L Creatine Kinase Index (0.0-2.5) % CK-MB (CK-2) (0.00-3.60) ng/mL Troponin I (0.000-0.056) ng/mL Pdb-T-Zqdrcmreuez Pept (0-125) pg/mL Total Protein (6.4-8.2) g/dL Albumin (3.4-5.0) g/dL Vitamin B12 (193-986) pg/mL Folate (8.6-58.9) ng/mL TSH, Ultra Sensitive (0.358-3.740) mIU/mL 01/18/17 01/18/17 01/18/17 Range/Units 01:32 02:18 06:40 WBC 8.2 (4.0-10.2) K/uL RBC 2.94 L (3.77-5.09) M/uL Hgb 9.4 L (11.7-15.5) g/dL Hct 28.1 L (34.0-46.0) % MCV 95.6 (84.0-98.0) fL MCH 32.0 (28.2-33.3) pg MCHC 33.5 (31.7-36.0) g/dL RDW 12.3 (11.2-14.1) % Plt Count 234 (150-350) K/uL Neut % (Auto) 68.9 (45.0-80.0) % Lymph % (Auto) 16.5 (10.0-50.0) % Brewster % (Auto) 8.8 (2.0-14.0) % Eos % (Auto) 5.3 H (0.0-5.0) % Baso % (Auto) 0.5 (0.0-2.0) % Neut # (Auto) 5.63 (1.40-7.00) K/uL Lymph # (Auto) 1.35 (0.50-3.50) K/uL Brewster # (Auto) 0.72 (0.00-1.00) K/uL Eos # (Auto) 0.43 (0.00-0.50) K/uL Baso # (Auto) 0.04 (0.00-0.20) K/uL Sodium (136-145) mmol/L Potassium (3.5-5.1) mmol/L Chloride (98-107) mmol/L Carbon Dioxide (21.0-32.0) mmol/L BUN (7-18) mg/dL Creatinine (0.51-1.17) mg/dL Est Cr Clr Drug Dosing mL/min Estimated GFR (MDRD) mL/min Glucose (74-106) mg/dL POC Glucose 46 L* 101 (65-110) mg/dl Calcium (8.5-10.1) mg/dL Iron (50-175) ug/dL TIBC (250-450) ug/dL % Saturation Ferritin (8-388) ng/mL Total Bilirubin (0.2-1.0) mg/dL AST (15-37) U/L ALT (12-78) U/L Alkaline Phosphatase (46-116) IU/L Creatine Kinase (26-308) U/L Creatine Kinase Index (0.0-2.5) % CK-MB (CK-2) (0.00-3.60) ng/mL Troponin I (0.000-0.056) ng/mL Tjk-P-Kgxzotzxykr Pept (0-125) pg/mL Total Protein (6.4-8.2) g/dL Albumin (3.4-5.0) g/dL Vitamin B12 (193-986) pg/mL Folate (8.6-58.9) ng/mL TSH, Ultra Sensitive (0.358-3.740) mIU/mL 01/18/17 01/18/17 01/18/17 Range/Units 06:40 06:40 06:40 WBC (4.0-10.2) K/uL RBC (3.77-5.09) M/uL Hgb (11.7-15.5) g/dL Hct (34.0-46.0) % MCV (84.0-98.0) fL MCH (28.2-33.3) pg MCHC (31.7-36.0) g/dL RDW (11.2-14.1) % Plt Count (150-350) K/uL Neut % (Auto) (45.0-80.0) % Lymph % (Auto) (10.0-50.0) % Brewster % (Auto) (2.0-14.0) % Eos % (Auto) (0.0-5.0) % Baso % (Auto) (0.0-2.0) % Neut # (Auto) (1.40-7.00) K/uL Lymph # (Auto) (0.50-3.50) K/uL Brewster # (Auto) (0.00-1.00) K/uL Eos # (Auto) (0.00-0.50) K/uL Baso # (Auto) (0.00-0.20) K/uL Sodium 132 L (136-145) mmol/L Potassium 4.6 (3.5-5.1) mmol/L Chloride 99 (98-107) mmol/L Carbon Dioxide 27.3 (21.0-32.0) mmol/L BUN 14 (7-18) mg/dL Creatinine 0.61 (0.51-1.17) mg/dL Est Cr Clr Drug Dosing 123.61 mL/min Estimated GFR (MDRD) > 60 mL/min Glucose 171 H (74-106) mg/dL POC Glucose (65-110) mg/dl Calcium 8.6 (8.5-10.1) mg/dL Iron 31 L (50-175) ug/dL TIBC 191 L (250-450) ug/dL % Saturation 16.05840 Ferritin 172 (8-388) ng/mL Total Bilirubin 0.1 L (0.2-1.0) mg/dL AST 19 (15-37) U/L ALT 19 (12-78) U/L Alkaline Phosphatase 99 (46-116) IU/L Creatine Kinase 33 (26-308) U/L Creatine Kinase Index 2.1 (0.0-2.5) % CK-MB (CK-2) 0.70 (0.00-3.60) ng/mL Troponin I 0.009 (0.000-0.056) ng/mL Ebk-T-Szpqruubuty Pept 198 H (0-125) pg/mL Total Protein 6.0 L (6.4-8.2) g/dL Albumin 2.3 L (3.4-5.0) g/dL Vitamin B12 660 (193-986) pg/mL Folate 5.3 L (8.6-58.9) ng/mL TSH, Ultra Sensitive 0.886 (0.358-3.740) mIU/mL 01/18/17 Range/Units 07:06 WBC (4.0-10.2) K/uL RBC (3.77-5.09) M/uL Hgb (11.7-15.5) g/dL Hct (34.0-46.0) % MCV (84.0-98.0) fL MCH (28.2-33.3) pg MCHC (31.7-36.0) g/dL RDW (11.2-14.1) % Plt Count (150-350) K/uL Neut % (Auto) (45.0-80.0) % Lymph % (Auto) (10.0-50.0) % Brewster % (Auto) (2.0-14.0) % Eos % (Auto) (0.0-5.0) % Baso % (Auto) (0.0-2.0) % Neut # (Auto) (1.40-7.00) K/uL Lymph # (Auto) (0.50-3.50) K/uL Brewster # (Auto) (0.00-1.00) K/uL Eos # (Auto) (0.00-0.50) K/uL Baso # (Auto) (0.00-0.20) K/uL Sodium (136-145) mmol/L Potassium (3.5-5.1) mmol/L Chloride (98-107) mmol/L Carbon Dioxide (21.0-32.0) mmol/L BUN (7-18) mg/dL Creatinine (0.51-1.17) mg/dL Est Cr Clr Drug Dosing mL/min Estimated GFR (MDRD) mL/min Glucose (74-106) mg/dL POC Glucose 184 H (65-110) mg/dl Calcium (8.5-10.1) mg/dL Iron (50-175) ug/dL TIBC (250-450) ug/dL % Saturation Ferritin (8-388) ng/mL Total Bilirubin (0.2-1.0) mg/dL AST (15-37) U/L ALT (12-78) U/L Alkaline Phosphatase (46-116) IU/L Creatine Kinase (26-308) U/L Creatine Kinase Index (0.0-2.5) % CK-MB (CK-2) (0.00-3.60) ng/mL Troponin I (0.000-0.056) ng/mL Fxa-P-Imymmqjybfg Pept (0-125) pg/mL Total Protein (6.4-8.2) g/dL Albumin (3.4-5.0) g/dL Vitamin B12 (193-986) pg/mL Folate (8.6-58.9) ng/mL TSH, Ultra Sensitive (0.358-3.740) mIU/mL Osman Results Last 24 Hours: Microbiology 01/17/17 15:07 Gram Stain - Final Foot, Left 01/16/17 18:48 Urine Culture - Final Urine, Clean Catch MIXED POSITIVE [facility] DAY 2 Med Orders - Current: Current Medications Acetaminophen (Tylenol) 650 mg PO Q4H PRN PRN Reason: Pain (Mild 1-3)/fever Last Admin: 01/16/17 18:30 Dose: 650 mg Aspirin (Halfprin) 81 mg PO DAILY RITU Last Admin: 01/18/17 07:09 Dose: 81 mg Famotidine (Pepcid) 20 mg IVPUSH BID [facility] Last Admin: 01/18/17 07:09 Dose: 20 mg Ceftriaxone Sodium 1 gm/ (Sodium Chloride) 100 mls @ 200 mls/hr IV Q12H [facility] Last Admin: 01/18/17 10:22 Dose: 200 mls/hr Insulin Aspart (Novolog Mix 70-30) 0 unit SUBCUT BIDAC [facility] PRN Reason: Protocol Last Admin: 01/18/17 08:10 Dose: 4 unit Insulin Detemir (Levemir) 40 unit SUBCUT QAM@1000 [facility] Last Admin: 01/18/17 10:30 Dose: 40 unit Lisinopril (Prinivil) 10 mg PO QPM [facility] Last Admin: 01/17/17 17:33 Dose: 10 mg Neomycin/Polymyxin/Bacitracin (Triple Antibiotic Oint) 1 each TOP BID@0800, 2000 [facility] Last Admin: 01/18/17 07:15 Dose: 1 each Pantoprazole Sodium (Protonix Iv) 40 mg IVPUSH Q12H [facility] Last Admin: 01/18/17 01:10 Dose: 40 mg Sodium Chloride (Saline Flush) 10 ml FLUSH ASDIRECTED PRN PRN Reason: Keep Vein Open Last Admin: 01/18/17 11:01 Dose: 10 ml Sodium Chloride (Saline Flush) 10 ml FLUSH Q12H PRN PRN Reason: Keep Vein Open Last Admin: 01/17/17 21:01 Dose: 10 ml Temazepam (Restoril) 15 mg PO BEDTIME PRN PRN Reason: Insomnia Trimethoprim/Sulfamethoxazole (Septra Ds) 1 tab PO BID [facility] Last Admin: 01/18/17 07:08 Dose: 1 tab Discontinued Medications Ceftriaxone Sodium 2 gm/ (Sodium Chloride) 100 mls @ 200 mls/hr IV ONETIME ONE Stop: 01/16/17 08:51 Last Admin: 01/16/17 08:52 Dose: 200 mls/hr Lactated Ringer's (Ringers, Lactated) 1,000 mls @ 999 mls/hr IV .BOLUS ONE Stop: 01/16/17 10:29 Last Admin: 01/16/17 10:00 Dose: 999 mls/hr Insulin Human Regular 100 unit (/ Sodium Chloride) 100 mls @ 6.8 mls/hr IV TITRATE RITU; 0.1 UNIT/KG/HR PRN Reason: Protocol Last Titration: 01/16/17 14:23 Dose: 0.08 unit/kg/hr, 5.8 mls/hr Lactated Ringer's (Ringers, Lactated) 1,000 mls @ 80 mls/hr IV ASDIRECTED RITU Last Admin: 01/16/17 19:30 Dose: 80 mls/hr Lactated Ringer's (Ringers, Lactated) 1,000 mls @ 60 mls/hr IV ASDIRECTED [facility] Insulin Aspart (Novolog) 0 unit SUBCUT ACBED [facility] PRN Reason: Protocol Last Admin: 01/17/17 11:27 Dose: 6 units Insulin Detemir (Levemir) 40 unit SUBCUT QAM@1000 [facility] Last Admin: 01/17/17 10:04 Dose: 40 units Insulin Human Regular (Humulin R) 10 unit IVPUSH ONETIME ONE PRN Reason: Protocol Stop: 01/16/17 09:42 Last Admin: 01/16/17 09:57 Dose: 10 unit Neomycin/Polymyxin/Bacitracin (Triple Antibiotic Oint) 1 each TOP BID [facility] Last Admin: 01/17/17 15:56 Dose: 1 each - Exam General: Alert, Oriented, Cooperative HEENT: Pupils Equal, Pupils Reactive, EOMI, Mucous Membr. Moist/Renick Neck: Supple Lungs: Clear to Auscultation, Normal Respiratory Effort Cardiovascular: Regular Rate, Regular Rhythm GI/Abdominal Exam: Normal Bowel Sounds, Soft, Non-Tender, No Organomegaly, No Distention, No Abnormal Bruit, No Mass, Pelvis Stable Back Exam: Normal Inspection, Full Range of Motion Extremities: Normal Range of Motion, No Pedal Edema, Other (Superficial ulcer of the plantar aspect of the left foot measuring 6 x 1 cm this was debrided today we'll continue dry dressings). No: Pedal Edema - Problem List & Annotations (1) Diabetic foot ulcer SNOMED Code(s): 398142777 Code(s): E11.621 - TYPE 2 DIABETES MELLITUS WITH FOOT ULCER; L97.509 - NON- PRESSURE CHRONIC ULCER OTH PRT UNSP FOOT W UNSP SEVERITY Status: Acute Priority: High Current Visit: Yes Onset Date: ~08/12/17 Qualifiers: Diabetic foot ulcer location: midfoot Diabetes mellitus type: type 2 Laterality: left Non-pressure ulcer stage: limited to breakdown of skin Qualified Code(s): E11.621 - Type 2 diabetes mellitus with foot ulcer; L97.421 - Non-pressure chronic ulcer of left heel and midfoot limited to breakdown of skin Annotation/Comment:: As above (2) Ketoacidosis SNOMED Code(s): 09805217 Code(s): E87.2 - ACIDOSIS Status: Acute Priority: High Current Visit: Yes Onset Date: 01/16/17 Annotation/Comment:: Resolved Ketoacidosis which was likely secondary to decompensated IDDM from her cellulitis as below. Note significant leukocytosis on admission, which has significantly improved with aggressive antibiotic therapy. No direct evidence of a UTI with urine culture showing contamination. Initial concerns of possible threatening sepsis with no concerns at this time. Insulin infusion regimen, including initial IV bolus of Humulin regular, was initiated in the emergency room with excellent results and patient subsequent change to a 4 times a day NovoLog sliding scale. Secondary to problems with medication compliance, including sliding scale as per emergency room note, various therapeutic options were discussed with the patient. She does agree to changing her previous sliding scale to a NovoLog Mix twice a day subcutaneous sliding scale, which will be started for supper today. Her 3 AM Accu-Chek this past evening showed no evidence of hypoglycemia with this to be repeated this evening. She was provided a written copy of the above sliding scale. The patient did not wish to have further diabetic teaching. Continue to observe her emotional status closely with some tearing today. Emotional support was provided. The patient did not wish to have any medical therapy for her current stressors - Problem List Review Problem List Initiated/Reviewed/Updated: Yes - Assessment Assessment:: As above - Plan Plan:: As above. Erin brady assumes patient's care in the a.m.. Extensive precautions were given to the patient, who is in agreement with the treatment plan. She will require about 1-2 days of further inpatient/acute care
[2017-01-18] MEDS: Lisinopril 10 MG Tab PO SCH (17:10)
[2017-01-19] MEDS: Pantoprazole 40 MG Vial IVPUSH SCH (02:00)
[2017-01-19] MEDS: Sodium Chloride 0.9% 10 ML Syringe FLUSH PRN (02:01)
[2017-01-19] MEDS: Aspirin 81 MG Tab.EC PO SCH (08:02)
[2017-01-19] MEDS: Insuln Aspart Prot/Insulin Aspart 100 Units/ML 3 ML FlexPen SUBCUT SCH (08:02)
[2017-01-19] MEDS: Famotidine 20 MG/2 ML SDV IVPUSH SCH (08:02)
[2017-01-19] MEDS: Sulfamethoxazole/Trimethoprim 800-160 MG Tab PO SCH (08:02)
--- NOTE | 2017-01-19 08:31 | OR ---
Date of Procedure: 01/18/2017 This 46-year-old female is seen today in consultation regarding her right foot diabetic ulcer. She was hospitalized about 2 days ago for infection in this ulcer. At that time, she had redness of the foot and pain up the length of her leg. With the use of antibiotics, the pain has subsided and the redness has also improved, but she has developed a linear superficial ulceration at the bottom of her right foot. Examination of this shows it to be 6 x 1 cm in size. The surface layer of the skin is present, but whitish in color, suggestive of a slightly deeper infection. There is a small amount of drainage from the proximal area of the wound, but no crepitus. I advised debridement of this surface layer of tissue to allow better drainage from the wound and the patient agrees to this. Then, an area 6 x 1 cm in size was sharply debrided with a #15 blade. The surface layer of the skin is removed, but the underlying dermis seemed to be intact, although there was some superficial necrotic tissue on its surface, the ulceration does not appear to track deep into the substance of the foot. The patient tolerated the procedure well. Findings were reviewed with her physician, Dr. Jacinto, and he will continue wound care and antibiotics for this patient. I will see her back ppawel Moon MD /[id number] MTDD
[2017-01-19] MEDS: cefTRIAXone 1 GM in Sodium Chloride 0.9% 100 ML IV SCH (08:37)
[2017-01-19 09:27] VITALS: BP 118/62
[2017-01-19] MEDS: Insulin Detemir 100 Units/ML 3 ML Pen SUBCUT SCH (10:14)
[2017-01-19] MEDS ORDERED: Levofloxacin 500 MG Tab PO SCH (10:30)
--- NOTE | 2017-01-19 10:48 | PCM.DCSUM1 ---
Discharge Summary - Hospital Course Free Text/Narrative:: Patient is a diabetic who was admitted with a diabetic foot ulcer at this time cause consult was obtained with surgeon debrided the wound felt that this was superficial and patient could go home. at this time the wound cultures showed Staphylococcus aureus sensitive to Septra and Levaquin. Rocephin was discontinued and patient started on Levaquin 500 daily we'll follow-up with primary provider for posthospitalization care within a week Wound care: dry dressings- apply 4 x 4 and then Kerlix. First clean wound with with wound cleanser. Restrictions: patient is to stay off her feet as much as possible until healed. Patient should stop smoking as this affects wound healing. Continue antibiotics for at 10 days. Prescriptions ordered. Brief History: patient would like to DC home. Does not want to stay in facility. Patient also refuses home health - Discharge Data Discharge Date: 01/19/17 (Refused Home Health) Discharge Disposition: Home, Self-Care 01 Condition: Good - Discharge Diagnosis/Problem(s) (1) Diabetic foot ulcer SNOMED Code(s): 357525865 ICD Code: E11.621 - TYPE 2 DIABETES MELLITUS WITH FOOT ULCER; L97.509 - NON- PRESSURE CHRONIC ULCER OTH PRT UNSP FOOT W UNSP SEVERITY Status: Acute Priority: High Current Visit: Yes Onset Date: ~01/13/17 Problem Details: As above Qualifiers: Diabetic foot ulcer location: midfoot Diabetes mellitus type: type 2 Laterality: left Non-pressure ulcer stage: limited to breakdown of skin Qualified Code(s): E11.621 - Type 2 diabetes mellitus with foot ulcer; L97.421 - Non-pressure chronic ulcer of left heel and midfoot limited to breakdown of skin (2) Ketoacidosis SNOMED Code(s): 00749870 ICD Code: E87.2 - ACIDOSIS Status: Acute Priority: High Current Visit: Yes Onset Date: 01/16/17 Problem Details: Resolved - Patient Summary/Data Consults: Consultations 01/18/17 05:11 Consult to Physician [CONS] Routine - Patient Instructions Diet: Diabetic Diet Activity: As Tolerated (Non weight bearing on left foot until healed ), Bedrest , May Use Bathroom, No Strenuous Activities Showering/Bathing: May Shower Wound/Incision Care: Keep Operative Site/Wound Site Clean and Dry, Change Dressing Daily Notify Provider of: Fever, Increased Pain, Swelling and Redness, Drainage, Nausea and/or Vomiting Other/Special Instructions: Wound care: dry dressings- apply 4 x 4 and then Kerlix. First clean wound with with wound cleanser. Restrictions: patient is to stay off her feet as much as possible until healed. Patient should stop smoking as this affects wound healing. Continue antibiotics for at 10 days. Prescriptions ordered. Left leg is non weight bearing at this time. Follow up with PCP for further restrictions in 7-10 days. At this time patient is home rest for 10 days. - Discharge Plan Prescriptions/Med Rec: Insuln Asp Prot/Insulin Aspart [NovoLOG Mix 70-30] 0 unit SUBCUT BIDAC #1 box Levofloxacin [Levaquin] 500 mg PO Q24H #9 tablet Lisinopril [Prinivil] 10 mg PO QPM #30 tablet Sulfamethoxazole/Trimethoprim [IJD: Sulfamethoxazole/Trimethoprim DS] 1 tab PO BID #18 tablet Home Medications: Home Meds Aspirin [Ecotrin] 81 mg PO DAILY 07/03/14 [History] Insulin Detemir [Levemir Flextouch] 40 unit SQ QAM@1000 07/03/14 [History] Ibuprofen 400 mg PO Q6HR PRN 01/16/17 [History] Ibuprofen 600 mg PO Q6HR PRN 01/16/17 [History] Acetaminophen [Tylenol] 650 mg PO Q4H PRN #0 tablet 01/19/17 [Rx] Insuln Asp Prot/Insulin Aspart [NovoLOG Mix 70-30] 0 unit SUBCUT BIDAC #1 box [Rx] Levofloxacin [Levaquin] 500 mg PO Q24H #9 tablet 01/19/17 [Rx] Lisinopril [Prinivil] 10 mg PO QPM #30 tablet 01/19/17 [Rx] Sulfamethoxazole/Trimethoprim [IJD: Sulfamethoxazole/Trimethoprim DS] 1 tab PO BID #18 tablet 01/19/17 [Rx] Other Amb Orders: Maintain Blood Glucose Level [OM.PC] Location: Determined By Patient Patient Handouts: Diabetes and Foot Care, Cellulitis, Adult, Ceftriaxone injection, Diabetic Ketoacidosis, Famotidine injection, Regular Insulin injection, Sulfamethoxazole; Trimethoprim, SMX-TMP tablets Forms: ED Department Discharge Referrals: Lita Daigle PA-C [Primary Care Provider] - - Discharge Summary/Plan Comment DC Time >30 min.: Yes - General Info Date of Service: 01/19/17 - Review of Systems General: Reports: Other (left leg non weight bearing; denies pain ) HEENT: Reports: No Symptoms Pulmonary: Reports: No Symptoms Cardiovascular: Reports: No Symptoms Gastrointestinal: Reports: No Symptoms Genitourinary: Reports: No Symptoms Musculoskeletal: Reports: No Symptoms Skin: Reports: No Symptoms Neurological: Reports: No Symptoms Psychiatric: Reports: No Symptoms - Patient Data Vitals - Most Recent: Last Vital Signs Temp 97.6 F 01/19/17 08:00 Pulse 93 01/19/17 08:00 Resp 16 01/19/17 08:00 BP 118/62 01/19/17 08:00 Pulse Ox 92 L 01/19/17 08:00 Weight - Most Recent: 155 lb 11.2 oz I&O - Last 24 hours: Intake & Output 01/18/17 01/19/17 01/19/17 22:59 06:59 14:59 Intake Total 770 1100 1040 Output Total 1800 Balance -1030 1100 1040 Lab Results - Last 24 hrs: Laboratory Results - last 24 hr 01/18/17 01/18/17 01/19/17 Range/Units 06:40 16:53 01:54 POC Glucose 186 H 46 L* (65-110) mg/dl Transferrin 160 L (203-362) mg/dL 01/19/17 01/19/17 Range/Units 02:32 07:28 POC Glucose 129 H 209 H (65-110) mg/dl Transferrin (203-362) mg/dL WARNER Results - Last 24 hrs: Microbiology 01/17/17 15:07 Gram Stain - Final Foot, Left Wound Culture - Final Staphylococcus Aureus 01/16/17 18:48 Urine Culture - Final Urine, Clean Catch MIXED POSITIVE [facility] DAY 2 Med Orders - Current: Current Medications Acetaminophen (Tylenol) 650 mg PO Q4H PRN PRN Reason: Pain (Mild 1-3)/fever Last Admin: 01/16/17 18:30 Dose: 650 mg Aspirin (Halfprin) 81 mg PO DAILY [facility] Last Admin: 01/19/17 08:02 Dose: 81 mg Famotidine (Pepcid) 20 mg IVPUSH BID [facility] Last Admin: 01/19/17 08:02 Dose: 20 mg Insulin Aspart (Novolog Mix 70-30) 0 unit SUBCUT BIDAC RITU PRN Reason: Protocol Last Admin: 01/19/17 08:02 Dose: 6 unit Insulin Detemir (Levemir) 40 unit SUBCUT QAM@1000 [facility] Last Admin: 01/19/17 10:14 Dose: 40 unit Levofloxacin (Levaquin) 500 mg PO Q24H RITU Lisinopril (Prinivil) 10 mg PO QPM [facility] Last Admin: 01/18/17 17:10 Dose: 10 mg Pantoprazole Sodium (Protonix Iv) 40 mg IVPUSH Q12H [facility] Last Admin: 01/19/17 02:00 Dose: 40 mg Sodium Chloride (Saline Flush) 10 ml FLUSH ASDIRECTED PRN PRN Reason: Keep Vein Open Last Admin: 01/19/17 02:01 Dose: 10 ml Sodium Chloride (Saline Flush) 10 ml FLUSH Q12H PRN PRN Reason: Keep Vein Open Last Admin: 01/17/17 21:01 Dose: 10 ml Temazepam (Restoril) 15 mg PO BEDTIME PRN PRN Reason: Insomnia Trimethoprim/Sulfamethoxazole (Septra Ds) 1 tab PO BID [facility] Last Admin: 01/19/17 08:02 Dose: 1 tab Discontinued Medications Ceftriaxone Sodium 2 gm/ (Sodium Chloride) 100 mls @ 200 mls/hr IV ONETIME ONE Stop: 01/16/17 08:51 Last Admin: 01/16/17 08:52 Dose: 200 mls/hr Lactated Ringer's (Ringers, Lactated) 1,000 mls @ 999 mls/hr IV .BOLUS ONE Stop: 01/16/17 10:29 Last Admin: 01/16/17 10:00 Dose: 999 mls/hr Insulin Human Regular 100 unit (/ Sodium Chloride) 100 mls @ 6.8 mls/hr IV TITRATE RITU; 0.1 UNIT/KG/HR PRN Reason: Protocol Last Titration: 01/16/17 14:23 Dose: 0.08 unit/kg/hr, 5.8 mls/hr Lactated Ringer's (Ringers, Lactated) 1,000 mls @ 80 mls/hr IV ASDIRECTED [facility] Last Admin: 01/16/17 19:30 Dose: 80 mls/hr Ceftriaxone Sodium 1 gm/ (Sodium Chloride) 100 mls @ 200 mls/hr IV Q12H [facility] Last Admin: 01/19/17 08:37 Dose: 200 mls/hr Lactated Ringer's (Ringers, Lactated) 1,000 mls @ 60 mls/hr IV ASDIRECTED [facility] Insulin Aspart (Novolog) 0 unit SUBCUT ACBED RITU PRN Reason: Protocol Last Admin: 01/17/17 11:27 Dose: 6 units Insulin Detemir (Levemir) 40 unit SUBCUT QAM@1000 [facility] Last Admin: 01/17/17 10:04 Dose: 40 units Insulin Human Regular (Humulin R) 10 unit IVPUSH ONETIME ONE PRN Reason: Protocol Stop: 01/16/17 09:42 Last Admin: 01/16/17 09:57 Dose: 10 unit Neomycin/Polymyxin/Bacitracin (Triple Antibiotic Oint) 1 each TOP BID [facility] Last Admin: 01/17/17 15:56 Dose: 1 each Neomycin/Polymyxin/Bacitracin (Triple Antibiotic Oint) 1 each TOP BID@0800, 2000 [facility] Last Admin: 01/18/17 07:15 Dose: 1 each - Exam General: Reports: Alert, Oriented HEENT: Reports: Pupils Equal, Pupils Reactive, EOMI, Mucous Membr. Moist/[place] Neck: Reports: Supple Lungs: Reports: Clear to Auscultation, Normal Respiratory Effort Cardiovascular: Reports: Regular Rate, Regular Rhythm GI/Abdominal Exam: Normal Bowel Sounds, Soft, Non-Tender, No Organomegaly, No Distention, No Abnormal Bruit, No Mass, Pelvis Stable (Female) Exam: Deferred Rectal (Female) Exam: Deferred Back Exam: Reports: Normal Inspection, Full Range of Motion Extremities: Other (Left mid foot wound DM ulcer ; cellulitis but improving) Skin: Reports: Warm, Dry Wound/Incisions: Reports: Dressing Dry and Intact, Decubitis (Left mid foot ) Neurological: Reports: No New Focal Deficit Psy/Mental Status: Reports: Alert, Normal Affect, Normal Mood *Q Meaningful Use (DIS) - VTE *Q VTE Criteria *Q: - Stroke *Q Stroke Criteria *Q: - AMI *Q AMI Criteria *Q:
== END 2017-01-19 11:30 | disposition home or self-care (01) | DRG 380 ==
LOC: LL.ED 08:18 → LL.MS 10:10
PROVIDERS: ADMIT Family Medicine; ATTEND Family Medicine
PROC: 0JBQ0ZZ Excision of Right Foot Subcutaneous Tissue and Fascia, Open Approach (ICD-10-PCS; principal; 2017-01-18)
DX: E11.621 Type 2 diabetes mellitus with foot ulcer (principal); L97.421 Non-pressure chronic ulcer of left heel and midfoot limited to breakdown of skin; A49.01 Methicillin susceptible Staphylococcus aureus infection, unspecified site; F17.210 Nicotine dependence, cigarettes, uncomplicated; Z79.01 Long term (current) use of anticoagulants; E78.5 Hyperlipidemia, unspecified; N18.9 Chronic kidney disease, unspecified; L03.116 Cellulitis of left lower limb; M15.0 Primary generalized (osteo)arthritis; K21.9 Gastro-esophageal reflux disease without esophagitis; K02.9 Dental caries, unspecified; E87.1 Hypo-osmolality and hyponatremia; I50.9 Heart failure, unspecified; E88.09 Other disorders of plasma-protein metabolism, not elsewhere classified; D64.9 Anemia, unspecified
CPT/HCPCS: 36415; 71020; 80048; 80053; 81001; 81003; 82009; 82044; 82550; 82553; 82607; 82728; 82746; 82947; 82962; 83036; 83540; 83550; 83605; 83880; 84100; 84443; 84466; 84484; 84550; 85025; 87040; 87070; 87086; 87186; 87205; 93005; 96365; 96367; 96376; 99284; A9270-GY; C9113; J0696; J1815; J1815-GY; J7050; J7120; S0028

== ENCOUNTER 2017-09-01 03:12 | Inpatient (IN) | payer BC ==
[2017-09-01] MEDS ORDERED: Lactated Ringers 1,000 ML IV ONE (03:30)
[2017-09-01] MEDS ORDERED: Pantoprazole 40 MG Vial IVPUSH ONE (03:30)
[2017-09-01] MEDS ORDERED: Ondansetron 4 MG/2 ML SDV IVPUSH ONE (03:30)
[2017-09-01] MEDS ORDERED: Famotidine 20 MG/2 ML SDV IVPUSH ONE (03:30)
--- NOTE | 2017-09-01 03:30 | EDM.PDOC ---
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 room. IV fluids will be continued during acute care, including initial 1 L IV bolus of lactated Ringer's. No signs of peritonitis with abdominal assessments with vitals. Further GI consultation depending on her clinical course. Minimal trace hematemesis from refractory vomiting, including in the emergency room, with no evidence of significant upper GI bleeding. Emesis significant improved at time of admission. No leukocytosis or fever at this time. Lactic acid level was normal with elevated ketones secondary to dehydration. Probable viral gastroenteritis. Qualifiers: Abdominal location: generalized Qualified Code(s): R10.84 - Generalized abdominal pain (2) IDDM (insulin dependent diabetes mellitus) SNOMED Code(s): 07025698 Code(s): E11.9 - TYPE 2 DIABETES MELLITUS WITHOUT COMPLICATIONS; Z79.4 - LONG-TERM (CURRENT) USE OF INSULIN Status: Chronic Priority: High Annotation/Comment:: Close observation of her blood sugars during hospitalization including sliding scale, etc. Patient is also somewhat behind on her routine preventative healthcare. Follow-up visits with her regular provider on at least an every 3 month basis advisable with mammogram, etc. to be conducted VIJAYA (3) Dehydration SNOMED Code(s): 54025479 Code(s): E86.0 - DEHYDRATION Status: Acute Priority: High Onset Date: ~ 09/01/17 Annotation/Comment:: IV fluids initiated by the paramedics continuation of IV fluids during initial phases of hospitalization as above. (4) CHF (congestive heart failure) SNOMED Code(s): 39751086 Code(s): I50.9 - HEART FAILURE, UNSPECIFIED Status: Chronic Priority: Medium Onset Date: 01/16/17 Annotation/Comment:: No chest pain or anginal type symptoms with no clinical evidence of exacerbation of her chronic CHF Qualifiers: Heart failure type: other Qualified Code(s): I50.9 - Heart failure, unspecified (5) COPD (chronic obstructive pulmonary disease) SNOMED Code(s): 36628345 Code(s): J44.9 - CHRONIC OBSTRUCTIVE PULMONARY DISEASE, UNSPECIFIED Status : Chronic Priority: Medium Annotation/Comment:: COPD by chest x-ray with no significant recent bronchitic type symptoms, fever, etc. No evidence of aspiration. Qualifiers: COPD type: emphysema Emphysema type: panlobular Qualified Code(s): J43.1 - Panlobular emphysema (6) Osteoarthritis SNOMED Code(s): 368619747 Code(s): M19.90 - UNSPECIFIED OSTEOARTHRITIS, UNSPECIFIED SITE Status: Chronic Priority: Medium Annotation/Comment:: Otherwise stable by history Qualifiers: Osteoarthritis location: multiple joints Osteoarthritis type: primary Qualified Code(s): M15.0 - Primary generalized (osteo)arthritis (7) Peptic reflux disease SNOMED Code(s): 969511825 Code(s): K21.9 - GASTRO-ESOPHAGEAL REFLUX DISEASE WITHOUT ESOPHAGITIS Status: Chronic Priority: Medium Annotation/Comment:: Stable by history with IV Pepcid and IV Protonix given as above (8) Tobacco abuse counseling SNOMED Code(s): 943841818, 082178241, 174394130 Code(s): Z71.6 - TOBACCO ABUSE COUNSELING Status: Chronic Priority: Medium Annotation/Comment:: Tobacco cessation once again strongly encouraged with tobacco cessation information to be provided at discharge (9) Anemia SNOMED Code(s): 855417502 Code(s): D64.9 - ANEMIA, UNSPECIFIED Status: Chronic Priority: Medium Onset Date: 01/17/17 Annotation/Comment:: Relatively stable chronic anemia. Workup during this hospitalization Qualifiers: Anemia type: unspecified type Qualified Code(s): D64.9 - Anemia, unspecified (10) Caries SNOMED Code(s): 57524815 Code(s): K02.9 - DENTAL CARIES, UNSPECIFIED Status: Chronic Priority: Medium Annotation/Comment:: Multiple caries with follow-up with her dentist VIJAYA after hospital discharge. Dental hygiene and its effect on her diabetes were once again discussed (11) Hypoalbuminemia SNOMED Code(s): 566325474 Code(s): E88.09 - [facility] DISORDERS OF PLASMA-PROTEIN METABOLISM, NEC Status: Acute Priority: Medium Onset Date: 01/17/17 Annotation/Comment:: Mild hypoalbuminemia. Initiate twice a day high-protein Glucerna supplements as snacks (12) Hypomagnesemia SNOMED Code(s): 248487333 Code(s): E83.42 - HYPOMAGNESEMIA Status: Acute Priority: Medium Onset Date: 09/01/17 Annotation/Comment:: Observe for now (13) Hyponatremia SNOMED Code(s): 30338752 Code(s): E87.1 - HYPO-OSMOLALITY AND HYPONATREMIA Status: Acute Priority : Medium Onset Date: 09/01/17 Annotation/Comment:: IV fluids as above - Problem List Review Problem List Initiated/Reviewed/Updated: Yes - My Orders Last 24 Hours: My Active Orders 09/01/17 03:30 Sodium Chloride 0.9% [Saline Flush] 10 ml FLUSH ASDIRECTED PRN cefTRIAXone [Rocephin] 1 gm Sodium Chloride 0.9% [Normal Saline] 100 ml IV Q12H metroNIDAZOLE/Normal Saline [Flagyl 500 MG in NS 100 ML] 500 mg Premix Bag 1 bag IV Q8H Resuscitation Status Stat 09/01/17 03:31 Peripheral IV Care [RC] . DIRECTED Abdomen Series w Chest 1V [CR] Stat CULTURE BLOOD [BC] Stat CULTURE BLOOD [BC] Stat CULTURE URINE [RM] Stat H PYLORI STOOL ANTIGEN [MREF] Urgent OCCULT BLOOD DIAGNOSTIC [OP] Stat UA W/MICROSCOPIC [URIN] Urgent Blood Culture x2 Reflex Set [OM.PC] Urgent Obtain Past Medical Record [OM.PC] Urgent Peripheral IV Insertion Adult [OM.PC] Stat 09/01/17 03:38 INFLUENZA A+B AG SCREEN [RM] Stat 09/01/17 04:36 Metoclopramide [Reglan] 10 mg IVPUSH Q6H PRN 09/01/17 Breakfast Nothing Per Oral Diet [DIET] - Assessment/Plan Admission H&P: Please use this note as an admission H&P Last 24 Hours: My Active Orders 09/01/17 03:30 Sodium Chloride 0.9% [Saline Flush] 10 ml FLUSH ASDIRECTED PRN cefTRIAXone [Rocephin] 1 gm Sodium Chloride 0.9% [Normal Saline] 100 ml IV Q12H metroNIDAZOLE/Normal Saline [Flagyl 500 MG in NS 100 ML] 500 mg Premix Bag 1 bag IV Q8H Resuscitation Status Stat 09/01/17 03:31 Peripheral IV Care [RC] . DIRECTED Abdomen Series w Chest 1V [CR] Stat CULTURE BLOOD [BC] Stat CULTURE BLOOD [BC] Stat CULTURE URINE [RM] Stat H PYLORI STOOL ANTIGEN [MREF] Urgent OCCULT BLOOD DIAGNOSTIC [OP] Stat UA W/MICROSCOPIC [URIN] Urgent Blood Culture x2 Reflex Set [OM.PC] Urgent Obtain Past Medical Record [OM.PC] Urgent Peripheral IV Insertion Adult [OM.PC] Stat 09/01/17 03:38 INFLUENZA A+B AG SCREEN [RM] Stat 09/01/17 04:36 Metoclopramide [Reglan] 10 mg IVPUSH Q6H PRN 09/01/17 Breakfast Nothing Per Oral Diet [DIET] Assessment:: As above Plan: As above. Extensive precautions were given to the patient, who is in agreement with the treatment plan. The patient will require about 3-4 days of inpatient/ acute care secondary to multiple health problems as above.
[2017-09-01] MEDS: Sodium Chloride 0.9% 10 ML Syringe FLUSH PRN ×8 (03:47→23:06)
[2017-09-01] MEDS: cefTRIAXone 1 GM in Sodium Chloride 0.9% 100 ML IV SCH ×2 (04:10→15:44)
[2017-09-01 04:19] LABS: CHLORIDE,CL 98 mmol/L (98-107); SODIUM,NA 134 mmol/L (136-145)
[2017-09-01] MEDS: Metoclopramide 10 MG/2 ML SDV IVPUSH PRN ×3 (04:43→23:05)
[2017-09-01] MEDS: metroNIDAZOLE/Normal Saline 500 MG in Premix Bag 1 BAG IV SCH ×3 (04:46→19:07)
[2017-09-01] MEDS ORDERED: Acetaminophen 325 MG Tab PO PRN (05:03)
[2017-09-01] MEDS: Insulin Aspart 100 Units/ML 3 ML Pen SUBCUT SCH ×4 (06:15→23:04)
[2017-09-01] MEDS: Lactated Ringers 1,000 ML IV SCH ×2 (07:22→20:13)
[2017-09-01] MEDS ORDERED: Escitalopram 20 MG Tab PO SCH (08:00)
[2017-09-01] MEDS: Sodium Chloride 0.9% 10 ML Syringe FLUSH SCH ×2 (10:00→19:08)
[2017-09-01] MEDS: Lisinopril 10 MG Tab PO SCH (15:43)
[2017-09-01] MEDS: atorvaSTATin 10 MG Tab PO SCH (15:43)
[2017-09-01] MEDS: Escitalopram 20 MG Tab PO SCH (15:44)
[2017-09-01] MEDS ORDERED: Lisinopril 10 MG Tab PO SCH (18:00)
[2017-09-01] MEDS ORDERED: Temazepam 15 MG Cap PO PRN (20:00)
[2017-09-01] MEDS: Promethazine 25 MG/ML SDV IM PRN (20:13)
[2017-09-01] MEDS: Acetaminophen 325 MG Tab PO PRN (20:14)
[2017-09-01] MEDS: Ondansetron 4 MG/2 ML SDV IVPUSH PRN (20:16)
[2017-09-01] MEDS ORDERED: Sodium Chloride 0.9% 1,000 ML IV ONE (23:12)
[2017-09-01] MEDS ORDERED: Magnesium Citrate Solution 296 ML Bottle PO ONE (23:24)
--- NOTE | 2017-09-01 23:40 | PCM.SN ---
- Free Text/Narrative Note: Patient has intermittently felt significantly improved/pain and nausea free throughout much of the day. Has had some clear fluids. This was noted to trigger cramping abdominal pain and nausea/emesis. Noted to have one small stool that was described by nurses as very hard/small/ rabbit-pellet like. Patient did say that she has had a noticeably difficult time with bowel movements over the past week or so. Small movements, very hard. Review of xray does not suggest an acute abdomen, but does have stool throughout , with a more prominent area noted in ascending colon, which could reflect a degree of constipation. Palpation of abdomen shows no guarding or rebound. Bowel sounds diminished. Tenderness and mild increased fullness noted over ascending colon. Lesser discomfort with palpation of other areas of abdomen. Given the above pattern that has been observed while patient has been here, along with history and exam, will see if patient can drink and retain Mag Citrate in order to try to promote a bowel movement. Enema also ordered. Patient is very tired and requested that we try these things tomorrow morning instead of having her up all night. Bolus of NS ordered, after which LR will be resumed. Cannot fully rule out viral gastroenteritis as part of etiology, however pattern is less suggestive of that at this time. Patient denies history of gastroparesis. Will continue to observe for changes.
[2017-09-02] MEDS: cefTRIAXone 1 GM in Sodium Chloride 0.9% 100 ML IV SCH ×2 (04:29→15:14)
[2017-09-02] MEDS: Insulin Aspart 100 Units/ML 3 ML Pen SUBCUT SCH ×3 (04:30→17:09)
[2017-09-02] MEDS: Sodium Chloride 0.9% 10 ML Syringe FLUSH PRN ×7 (04:30→15:15)
[2017-09-02] MEDS ORDERED: metroNIDAZOLE/Normal Saline 500 MG in Premix Bag 1 BAG IV SCH (05:03)
[2017-09-02] MEDS: metroNIDAZOLE/Normal Saline 500 MG in Premix Bag 1 BAG IV SCH ×3 (05:03→19:57)
[2017-09-02] MEDS ORDERED: cefTRIAXone 1 GM in Sodium Chloride 0.9% 100 ML IV SCH (05:03)
[2017-09-02] MEDS: Metoclopramide 10 MG/2 ML SDV IVPUSH PRN (05:09)
[2017-09-02] MEDS ORDERED: Magnesium Citrate Solution 296 ML Bottle ONE (07:49)
[2017-09-02] MEDS: Sodium Chloride 0.9% 10 ML Syringe FLUSH SCH ×2 (08:00→19:56)
[2017-09-02] MEDS: Famotidine 20 MG/2 ML SDV IVPUSH SCH ×2 (08:00→19:56)
[2017-09-02] MEDS: Pantoprazole 40 MG Vial IVPUSH SCH ×2 (08:01→19:56)
[2017-09-02 09:18] LABS: CHLORIDE,CL 97 mmol/L (98-107); SODIUM,NA 132 mmol/L (136-145)
[2017-09-02] MEDS: Lactated Ringers 1,000 ML IV SCH ×2 (09:18→22:01)
--- NOTE | 2017-09-02 09:55 | PCM.PN ---
- General Info Date of Service: 09/02/17 Admission Dx/Problem (Free Text): 1. Abdominal pain 2. Dehydration 3. IDDM Functional Status: Reports: Pain Controlled (No pain at this time), Ambulating, Urinating. Denies: Tolerating Diet (Persistent nausea without emesis with patient not able to tolerate diet to this point), New Symptoms, Incentive Spirometry Pain Score: 0 - Review of Systems General: Reports: No Symptoms, Appetite (Not good as above). Denies: Fever ( Fever resolved with maximum temperature of 37.2 early on admission), Weakness, Fatigue, Malaise, Chills, Night Sweats HEENT: Reports: No Symptoms. Denies: Ear Pain, Eye Pain, Glasses, Headaches, Post Nasal Drip, Sinus Congestion, Sore Throat, Rhinitis, Visual Changes Pulmonary: Reports: No Symptoms. Denies: Shortness of Breath, Pleuritic Chest Pain, Cough, Sputum, Hemoptysis, Wheezing Cardiovascular: Reports: No Symptoms. Denies: Chest Pain, Palpitations, Dyspnea on Exertion, Orthopnea, Edema, Lightheadedness Gastrointestinal: Reports: Constipation, Decreased Appetite, Other (No bowel movement to this point despite magnesium oxide completed earlier this morning). Denies: Abdominal Pain, Diarrhea, Difficulty Swallowing, Flatus, Hematochezia , Melena, Nausea, Vomiting Genitourinary: Reports: No Symptoms. Denies: Dysuria, Frequency, Burning, Pain , Urgency, Incontinence, Hematuria, Retention, Flank Pain Musculoskeletal: Reports: No Symptoms. Denies: Neck Pain, Shoulder Pain, Arm Pain, Back Pain, Leg Pain Skin: Reports: No Symptoms. Denies: Jaundice, Pallor, Diaphoresis, Bruising Neurological: Reports: No Symptoms. Denies: Confusion, Dizziness, Headache, Numbness, Paresthesia, Pre-Existing Deficit, Tingling, Weakness Psychiatric: Reports: No Symptoms. Denies: Confusion, Depression, Anxiety, Agitation, Cravings, Hallucinations, Homicidal Ideation - Patient Data Vitals - Most Recent: Last Vital Signs Temp 36.4 C 09/02/17 05:20 Pulse 90 09/02/17 05:20 Resp 20 09/02/17 05:20 BP 124/52 L 09/02/17 05:20 Pulse Ox 98 09/02/17 05:20 Vital Signs - 24 hr 09/01/17 09/01/17 09/01/17 12:00 16:00 23:44 Temperature [ 37.1 C 37.2 C 35.7 C Temporal] Pulse, 97 91 88 Peripheral [ Right Pulse Oximetry] Respiratory 20 19 22 H Rate Blood Pressure 123/74 151/64 H 121/54 L [Right Upper Arm] O2 Sat by Pulse 98 98 97 Oximetry 09/02/17 05:20 Temperature [ 36.4 C Temporal] Pulse, 90 Peripheral [ Right Pulse Oximetry] Respiratory 20 Rate Blood Pressure 124/52 L [Right Upper Arm] O2 Sat by Pulse 98 Oximetry Weight - Most Recent: 68.538 kg I&O - Last 24 Hours: Intake & Output 09/01/17 09/02/17 09/02/17 22:59 06:59 14:59 Intake Total 400 2600 0 Output Total 550 600 Balance -150 2600 -600 Imaging Impressions - Last 24 Hours: None Lab Results Last 24 Hours: Laboratory Results - last 24 hr 09/01/17 09/01/17 09/01/17 Range/Units 09:32 09:32 09:33 WBC (4.0-10.2) K/uL RBC (3.77-5.09) M/uL Hgb (11.7-15.5) g/dL Hct (34.0-46.0) % MCV (84.0-98.0) fL MCH (28.2-33.3) pg MCHC (31.7-36.0) g/dL RDW (11.2-14.1) % Plt Count (150-350) K/uL Neut % (Auto) (45.0-80.0) % Lymph % (Auto) (10.0-50.0) % [place] % (Auto) (2.0-14.0) % Eos % (Auto) (0.0-5.0) % Baso % (Auto) (0.0-2.0) % Neut # (Auto) (1.40-7.00) K/uL Lymph # (Auto) (0.50-3.50) K/uL [place] # (Auto) (0.00-1.00) K/uL Eos # (Auto) (0.00-0.50) K/uL Baso # (Auto) (0.00-0.20) K/uL Sodium (136-145) mmol/L Potassium (3.5-5.1) mmol/L Chloride (98-107) mmol/L Carbon Dioxide (21.0-32.0) mmol/L BUN (7-18) mg/dL Creatinine (0.51-1.17) mg/dL Est Cr Clr Drug Dosing mL/min Estimated GFR (MDRD) mL/min Glucose (74-106) mg/dL POC Glucose (65-110) mg/dl Calcium (8.5-10.1) mg/dL Magnesium (1.8-2.4) mg/dL Iron (50-175) ug/dL TIBC (250-450) ug/dL % Saturation Ferritin (8-388) ng/mL Total Bilirubin (0.2-1.0) mg/dL AST (15-37) U/L ALT (12-78) U/L Alkaline Phosphatase (46-116) IU/L Total Protein (6.4-8.2) g/dL Albumin (3.4-5.0) g/dL Amylase (25-115) U/L Lipase (73-393) U/L Vitamin B12 (193-986) pg/mL Specimen Type Urincc Urine Color Yellow Urine Appearance Clear Urine pH 5.5 (5.0-9.0) Ur Specific [place] 1.020 (1.005-1.030) Urine Protein 100 H (NEGATIVE) mg/dL Urine Glucose (UA) 500 H (NEGATIVE) mg/dL Urine Ketones >=160 H (NEGATIVE) mg/dL Urine Occult Blood Trace-lysed H (NEGATIVE) Urine Nitrite Negative (NEGATIVE) Urine Bilirubin Negative (NEGATIVE) Urine Acetone Large H (NEGATIVE) Urine Urobilinogen 0.2 (0.2-1.0) E.U./dL Ur Leukocyte Esterase Negative (NEGATIVE) Urine RBC 0-5 /HPF Urine WBC 0-5 /HPF Ur Epithelial Cells Many H /LPF Urine Bacteria Few (NONE TO FEW) /HPF Urine Opiates Screen Negative (NEGATIVE) Urine Methadone Screen TNP U Acetaminophen Screen TNP Ur Barbiturates Screen Negative (NEGATIVE) Ur Tricyclics Screen Negative (NEGATIVE) Ur Phencyclidine Scrn Negative (NEGATIVE) Ur Amphetamine Screen Negative (NEGATIVE) U Methamphetamines Scrn Negative (NEGATIVE) U Benzodiazepines Scrn Negative (NEGATIVE) U Cocaine Metab Screen Negative (NEGATIVE) U Marijuana (THC) Screen Positive H (NEGATIVE) 09/01/17 09/01/17 09/01/17 Range/Units 11:37 17:01 23:02 WBC (4.0-10.2) K/uL RBC (3.77-5.09) M/uL Hgb (11.7-15.5) g/dL Hct (34.0-46.0) % MCV (84.0-98.0) fL MCH (28.2-33.3) pg MCHC (31.7-36.0) g/dL RDW (11.2-14.1) % Plt Count (150-350) K/uL Neut % (Auto) (45.0-80.0) % Lymph % (Auto) (10.0-50.0) % [place] % (Auto) (2.0-14.0) % Eos % (Auto) (0.0-5.0) % Baso % (Auto) (0.0-2.0) % Neut # (Auto) (1.40-7.00) K/uL Lymph # (Auto) (0.50-3.50) K/uL [place] # (Auto) (0.00-1.00) K/uL Eos # (Auto) (0.00-0.50) K/uL Baso # (Auto) (0.00-0.20) K/uL Sodium (136-145) mmol/L Potassium (3.5-5.1) mmol/L Chloride (98-107) mmol/L Carbon Dioxide (21.0-32.0) mmol/L BUN (7-18) mg/dL Creatinine (0.51-1.17) mg/dL Est Cr Clr Drug Dosing mL/min Estimated GFR (MDRD) mL/min Glucose (74-106) mg/dL POC Glucose 304 H* 193 H 321 H* (65-110) mg/dl Calcium (8.5-10.1) mg/dL Magnesium (1.8-2.4) mg/dL Iron (50-175) ug/dL TIBC (250-450) ug/dL % Saturation Ferritin (8-388) ng/mL Total Bilirubin (0.2-1.0) mg/dL AST (15-37) U/L ALT (12-78) U/L Alkaline Phosphatase (46-116) IU/L Total Protein (6.4-8.2) g/dL Albumin (3.4-5.0) g/dL Amylase (25-115) U/L Lipase (73-393) U/L Vitamin B12 (193-986) pg/mL Specimen Type Urine Color Urine Appearance Urine pH (5.0-9.0) Ur Specific [place] (1.005-1.030) Urine Protein (NEGATIVE) mg/dL Urine Glucose (UA) (NEGATIVE) mg/dL Urine Ketones (NEGATIVE) mg/dL Urine Occult Blood (NEGATIVE) Urine Nitrite (NEGATIVE) Urine Bilirubin (NEGATIVE) Urine Acetone (NEGATIVE) Urine Urobilinogen (0.2-1.0) E.U./dL Ur Leukocyte Esterase (NEGATIVE) Urine RBC /HPF Urine WBC /HPF Ur Epithelial Cells /LPF Urine Bacteria (NONE TO FEW) /HPF Urine Opiates Screen (NEGATIVE) Urine Methadone Screen U Acetaminophen Screen Ur Barbiturates Screen (NEGATIVE) Ur Tricyclics Screen (NEGATIVE) Ur Phencyclidine Scrn (NEGATIVE) Ur Amphetamine Screen (NEGATIVE) U Methamphetamines Scrn (NEGATIVE) U Benzodiazepines Scrn (NEGATIVE) U Cocaine Metab Screen (NEGATIVE) U Marijuana (THC) Screen (NEGATIVE) 09/02/17 09/02/17 09/02/17 Range/Units 04:25 07:20 07:20 WBC 8.5 (4.0-10.2) K/uL RBC 3.65 L (3.77-5.09) M/uL Hgb 11.2 L (11.7-15.5) g/dL Hct 33.3 L (34.0-46.0) % MCV 91.2 (84.0-98.0) fL MCH 30.7 (28.2-33.3) pg MCHC 33.6 (31.7-36.0) g/dL RDW 13.1 (11.2-14.1) % Plt Count 256 (150-350) K/uL Neut % (Auto) 79.3 (45.0-80.0) % Lymph % (Auto) 13.4 (10.0-50.0) % [place] % (Auto) 6.6 (2.0-14.0) % Eos % (Auto) 0.2 (0.0-5.0) % Baso % (Auto) 0.5 (0.0-2.0) % Neut # (Auto) 6.72 (1.40-7.00) K/uL Lymph # (Auto) 1.14 (0.50-3.50) K/uL [place] # (Auto) 0.56 (0.00-1.00) K/uL Eos # (Auto) 0.02 (0.00-0.50) K/uL Baso # (Auto) 0.04 (0.00-0.20) K/uL Sodium 132 L (136-145) mmol/L Potassium 4.3 (3.5-5.1) mmol/L Chloride 97 L (98-107) mmol/L Carbon Dioxide 20.4 L (21.0-32.0) mmol/L BUN 17 (7-18) mg/dL Creatinine 0.65 (0.51-1.17) mg/dL Est Cr Clr Drug Dosing 110.62 mL/min Estimated GFR (MDRD) > 60 mL/min Glucose 221 H (74-106) mg/dL POC Glucose 271 H* (65-110) mg/dl Calcium 8.5 (8.5-10.1) mg/dL Magnesium 1.4 L (1.8-2.4) mg/dL Iron (50-175) ug/dL TIBC (250-450) ug/dL % Saturation Ferritin (8-388) ng/mL Total Bilirubin 0.4 (0.2-1.0) mg/dL AST 17 (15-37) U/L ALT 18 (12-78) U/L Alkaline Phosphatase 86 (46-116) IU/L Total Protein 6.5 (6.4-8.2) g/dL Albumin 3.2 L (3.4-5.0) g/dL Amylase 12 L (25-115) U/L Lipase 49 L (73-393) U/L Vitamin B12 926 (193-986) pg/mL Specimen Type Urine Color Urine Appearance Urine pH (5.0-9.0) Ur Specific [place] (1.005-1.030) Urine Protein (NEGATIVE) mg/dL Urine Glucose (UA) (NEGATIVE) mg/dL Urine Ketones (NEGATIVE) mg/dL Urine Occult Blood (NEGATIVE) Urine Nitrite (NEGATIVE) Urine Bilirubin (NEGATIVE) Urine Acetone (NEGATIVE) Urine Urobilinogen (0.2-1.0) E.U./dL Ur Leukocyte Esterase (NEGATIVE) Urine RBC /HPF Urine WBC /HPF Ur Epithelial Cells /LPF Urine Bacteria (NONE TO FEW) /HPF Urine Opiates Screen (NEGATIVE) Urine Methadone Screen U Acetaminophen Screen Ur Barbiturates Screen (NEGATIVE) Ur Tricyclics Screen (NEGATIVE) Ur Phencyclidine Scrn (NEGATIVE) Ur Amphetamine Screen (NEGATIVE) U Methamphetamines Scrn (NEGATIVE) U Benzodiazepines Scrn (NEGATIVE) U Cocaine Metab Screen (NEGATIVE) U Marijuana (THC) Screen (NEGATIVE) 09/02/17 Range/Units 07:20 WBC (4.0-10.2) K/uL RBC (3.77-5.09) M/uL Hgb (11.7-15.5) g/dL Hct (34.0-46.0) % MCV (84.0-98.0) fL MCH (28.2-33.3) pg MCHC (31.7-36.0) g/dL RDW (11.2-14.1) % Plt Count (150-350) K/uL Neut % (Auto) (45.0-80.0) % Lymph % (Auto) (10.0-50.0) % [place] % (Auto) (2.0-14.0) % Eos % (Auto) (0.0-5.0) % Baso % (Auto) (0.0-2.0) % Neut # (Auto) (1.40-7.00) K/uL Lymph # (Auto) (0.50-3.50) K/uL [place] # (Auto) (0.00-1.00) K/uL Eos # (Auto) (0.00-0.50) K/uL Baso # (Auto) (0.00-0.20) K/uL Sodium (136-145) mmol/L Potassium (3.5-5.1) mmol/L Chloride (98-107) mmol/L Carbon Dioxide (21.0-32.0) mmol/L BUN (7-18) mg/dL Creatinine (0.51-1.17) mg/dL Est Cr Clr Drug Dosing mL/min Estimated GFR (MDRD) mL/min Glucose (74-106) mg/dL POC Glucose (65-110) mg/dl Calcium (8.5-10.1) mg/dL Magnesium (1.8-2.4) mg/dL Iron 129 (50-175) ug/dL TIBC 202 L (250-450) ug/dL % Saturation 63.34970 Ferritin 191 (8-388) ng/mL Total Bilirubin (0.2-1.0) mg/dL AST (15-37) U/L ALT (12-78) U/L Alkaline Phosphatase (46-116) IU/L Total Protein (6.4-8.2) g/dL Albumin (3.4-5.0) g/dL Amylase (25-115) U/L Lipase (73-393) U/L Vitamin B12 (193-986) pg/mL Specimen Type Urine Color Urine Appearance Urine pH (5.0-9.0) Ur Specific [place] (1.005-1.030) Urine Protein (NEGATIVE) mg/dL Urine Glucose (UA) (NEGATIVE) mg/dL Urine Ketones (NEGATIVE) mg/dL Urine Occult Blood (NEGATIVE) Urine Nitrite (NEGATIVE) Urine Bilirubin (NEGATIVE) Urine Acetone (NEGATIVE) Urine Urobilinogen (0.2-1.0) E.U./dL Ur Leukocyte Esterase (NEGATIVE) Urine RBC /HPF Urine WBC /HPF Ur Epithelial Cells /LPF Urine Bacteria (NONE TO FEW) /HPF Urine Opiates Screen (NEGATIVE) Urine Methadone Screen U Acetaminophen Screen Ur Barbiturates Screen (NEGATIVE) Ur Tricyclics Screen (NEGATIVE) Ur Phencyclidine Scrn (NEGATIVE) Ur Amphetamine Screen (NEGATIVE) U Methamphetamines Scrn (NEGATIVE) U Benzodiazepines Scrn (NEGATIVE) U Cocaine Metab Screen (NEGATIVE) U Marijuana (THC) Screen (NEGATIVE) [facility]man Results Last 24 Hours: Microbiology 09/01/17 09:32 Urine Culture - Final Urine, Clean Catch MIXED MARY CARMEN SUGGESTIVE OF CONTAMINATION. 09/01/17 03:31 Stool Occult Blood (OSMAN) - Final Stool / Feces NEGATIVE OCCULT BLOOD 09/01/17 04:30 Aerobic Blood Culture - Preliminary Blood - Venous - Lab Draw NO GROWTH AFTER 1 DAY Anaerobic Blood Culture - Preliminary NO GROWTH AFTER 1 DAY 09/01/17 03:50 Aerobic Blood Culture - Preliminary Blood - Venous NO GROWTH AFTER 1 DAY Anaerobic Blood Culture - Preliminary NO GROWTH AFTER 1 DAY 09/01/17 04:15 Influenza Type A Antigen Screen - Final Nasal, Left NEGATIVE INFLUENZA A VIRUS AG Influenza Type B Antigen Screen - Final NEGATIVE INFLUENZA B VIRUS AG Med Orders - Current: Current Medications Acetaminophen (Tylenol) 650 mg PO Q4H PRN PRN Reason: Pain Last Admin: 09/01/17 20:14 Dose: 650 mg Atorvastatin Calcium (Lipitor) 20 mg PO DAILY@1500 [facility] Last Admin: 09/01/17 15:43 Dose: 20 mg Escitalopram Oxalate (Lexapro) 10 mg PO DAILY@15 [facility] Last Admin: 09/01/17 15:44 Dose: 10 mg Famotidine (Pepcid) 20 mg IVPUSH Q12H [facility] Last Admin: 09/02/17 08:00 Dose: 20 mg Ceftriaxone Sodium 1 gm/ (Sodium Chloride) 100 mls @ 200 mls/hr IV Q12H [facility] Last Admin: 09/02/17 04:29 Dose: 200 mls/hr Metronidazole 500 mg/ Premix 100 mls @ 100 mls/hr IV Q8H [facility] Last Admin: 09/02/17 05:03 Dose: 100 mls/hr Lactated Ringer's (Ringers, Lactated) 1,000 mls @ 100 mls/hr IV ASDIRECTED [facility] Last Admin: 09/02/17 09:18 Dose: 100 mls/hr Insulin Aspart (Novolog) 0 unit SUBCUT Q6H [facility]; Protocol Last Admin: 09/02/17 04:30 Dose: 8 units Lisinopril (Prinivil) 10 mg PO DAILY@15 [facility] Last Admin: 09/01/17 15:43 Dose: 10 mg Metoclopramide HCl (Reglan) 10 mg IVPUSH Q6H PRN PRN Reason: Nausea/Vomiting Last Admin: 09/02/17 05:09 Dose: 10 mg Ondansetron HCl (Zofran) 4 mg IVPUSH Q6H PRN PRN Reason: Nausea/Vomiting Last Admin: 09/01/17 20:16 Dose: 4 mg Pantoprazole Sodium (Protonix Iv) 40 mg IVPUSH Q12H [facility] Last Admin: 09/02/17 08:01 Dose: 40 mg Promethazine HCl (Phenergan) 25 mg IM Q6H PRN PRN Reason: Nausea/Vomiting Last Admin: 09/01/17 20:13 Dose: 25 mg Sodium Chloride (Saline Flush) 10 ml FLUSH ASDIRECTED PRN PRN Reason: Keep Vein Open Last Admin: 09/02/17 08:01 Dose: 10 ml Sodium Chloride (Saline Flush) 10 ml FLUSH Q12HR [facility] Last Admin: 09/02/17 08:00 Dose: 10 ml Temazepam (Restoril) 15 mg PO DAILY@2000 PRN PRN Reason: Insomnia Discontinued Medications Acetaminophen (Tylenol) 650 mg PO Q4H PRN PRN Reason: Pain Famotidine (Pepcid) 40 mg IVPUSH ONETIME ONE Stop: 09/01/17 03:31 Last Admin: 09/01/17 03:51 Dose: 40 mg Lactated Ringer's (Ringers, Lactated) 1,000 mls @ 999 mls/hr IV .BOLUS ONE Stop: 09/01/17 04:30 Last Admin: 09/01/17 06:15 Dose: 999 mls/hr Ceftriaxone Sodium 1 gm/ (Sodium Chloride) 100 mls @ 200 mls/hr IV Q12H [facility] Metronidazole 500 mg/ Premix 100 mls @ 100 mls/hr IV Q8H [facility] Sodium Chloride (Normal Saline) 1,000 mls @ 999 mls/hr IV .BOLUS ONE Stop: 09/02/17 00:12 Last Admin: 09/02/17 00:18 Dose: 999 mls/hr Magnesium Citrate (Citrate Of Magnesia) 296 ml PO ONETIME ONE Stop: 09/01/17 23:25 Last Admin: 09/02/17 08:27 Dose: Not Given Magnesium Citrate (Citrate Of Magnesia) Confirm Administered Dose 296 ml .ROUTE .STK-MED ONE Stop: 09/02/17 07:50 Last Admin: 09/02/17 08:00 Dose: 296 ml Ondansetron HCl (Zofran) 4 mg IVPUSH ONETIME ONE Stop: 09/01/17 03:31 Last Admin: 09/01/17 03:46 Dose: 4 mg Pantoprazole Sodium (Protonix Iv) 40 mg IVPUSH ONETIME ONE Stop: 09/01/17 03:31 Last Admin: 09/01/17 03:49 Dose: 40 mg - Exam Quality Assessment: DVT Prophylaxis. No: Supplemental Oxygen, Central Line/PICC , Urine Catheter, Skin Breakdown, Restraints General: Alert, Oriented, Cooperative, No Acute Distress HEENT: Pupils Equal, Pupils Reactive, EOMI, Mucous Membr. Moist/Iron Station Neck: Supple, Trachea Midline, No JVD, No Thyromegaly. No: Lymphadenopathy Lungs: Clear to Auscultation, Normal Respiratory Effort. No: Rub Cardiovascular: Regular Rate, Regular Rhythm, No Murmurs. No: Gallops, Rubs GI/Abdominal Exam: Normal Bowel Sounds, Soft, Non-Tender, No Organomegaly, No Distention, No Abnormal Bruit, No Mass. No: Guarding (Female) Exam: Deferred Back Exam: Normal Inspection, Full Range of Motion. No: CVA Tenderness (L), CVA Tenderness (R), Muscle Spasm Extremities: Normal Inspection, Normal Range of Motion, Non-Tender, No Pedal Edema, Normal Capillary Refill. No: Paty's Sign Peripheral Pulses: 2+: Radial (L), Radial (R), Dorsalis Pedis (L), Dorsalis Pedis (R) Skin: Warm, Dry, Intact. No: Ecchymosis Neurological: No New Focal Deficit Psy/Mental Status: Alert, Normal Affect, Normal Mood - Problem List & Annotations (1) Abdominal pain SNOMED Code(s): 70599711 Code(s): R10.9 - UNSPECIFIED ABDOMINAL PAIN Status: Acute Priority: High Current Visit: No Onset Date: ~08/30/17 Qualifiers: Abdominal location: generalized Qualified Code(s): R10.84 - Generalized abdominal pain Annotation/Comment:: Abdominal pain resolved at this time, however patient still fairly constipated despite magnesium citrate therapy as above. Note elevated serum acetone and urine ketones with no direct evidence of significant ketoacidosis. Consider ABGs depending on her clinical course. Continue aggressive IV fluids, sliding scale, NovoLog therapy, and IV Rocephin/Flagyl therapy. Mild anemia is stable with no evidence of GI bleed. Discontinue abdominal assessment with vitals. Try to advance diet today. Change IV Reglan to twice a day with 4 times a day when necessary oral regimen. Note that the patient was aggressively treated in the emergency room, including high-dose IV Pepcid, IV Protonix, and initiation of IV Rocephin and Flagyl. Note initial 1 L IV bolus of lactated Ringer's. No signs of peritonitis on admission. Further GI consultation depending on her clinical course. Minimal trace hematemesis from refractory vomiting, including in the emergency room, with no recurrence since admission. Lactic acid level was normal on admission. Probable viral gastroenteritis versus diabetic gastroenteropathy. (2) IDDM (insulin dependent diabetes mellitus) SNOMED Code(s): 36695034 Code(s): E11.9 - TYPE 2 DIABETES MELLITUS WITHOUT COMPLICATIONS; Z79.4 - HALF-WAY (CURRENT) USE OF INSULIN Status: Chronic Priority: High Current Visit: No Annotation/Comment:: Continue close observation of her blood sugars during hospitalization including sliding scale, etc. as above with reinitiation of her previous insulin therapy once she tolerates her diet. Patient is also somewhat behind on her routine preventative healthcare. Follow-up visits with her regular provider on at least an every 3 month basis advisable with mammogram , etc. to be conducted VIJAYA (3) Dehydration SNOMED Code(s): 95245063 Code(s): E86.0 - DEHYDRATION Status: Acute Priority: High Current Visit : No Onset Date: ~09/01/17 Annotation/Comment:: Dehydration clinically resolved based on today's exam. Repeat serum acetone and lactic acid level tomorrow with her blood work. Continue IV fluids as above with fluids initiated by the paramedics during transfer. (4) CHF (congestive heart failure) SNOMED Code(s): 05753505 Code(s): I50.9 - HEART FAILURE, UNSPECIFIED Status: Chronic Priority: Medium Current Visit: No Onset Date: 01/16/17 Qualifiers: Heart failure type: other Qualified Code(s): I50.9 - Heart failure, unspecified Annotation/Comment:: No chest pain or anginal type symptoms with no clinical evidence of exacerbation of her chronic CHF (5) COPD (chronic obstructive pulmonary disease) SNOMED Code(s): 99991651 Code(s): J44.9 - CHRONIC OBSTRUCTIVE PULMONARY DISEASE, UNSPECIFIED Status : Chronic Priority: Medium Current Visit: No Qualifiers: COPD type: emphysema Emphysema type: panlobular Qualified Code(s): J43.1 - Panlobular emphysema Annotation/Comment:: COPD by chest x-ray with no significant recent bronchitic type symptoms, fever, etc. No evidence of aspiration. (6) Osteoarthritis SNOMED Code(s): 828920410 Code(s): M19.90 - UNSPECIFIED OSTEOARTHRITIS, UNSPECIFIED SITE Status: Chronic Priority: Medium Current Visit: No Qualifiers: Osteoarthritis location: multiple joints Osteoarthritis type: primary Qualified Code(s): M15.0 - Primary generalized (osteo)arthritis Annotation/Comment:: Otherwise stable by history (7) Peptic reflux disease SNOMED Code(s): 063724602 Code(s): K21.9 - GASTRO-ESOPHAGEAL REFLUX DISEASE WITHOUT ESOPHAGITIS Status: Chronic Priority: Medium Current Visit: No Annotation/Comment:: Stable by history with IV Pepcid and IV Protonix to be continued for now (8) Tobacco abuse counseling SNOMED Code(s): 780952975, 759539033, 038525769 Code(s): Z71.6 - TOBACCO ABUSE COUNSELING Status: Chronic Priority: Medium Current Visit: No Annotation/Comment:: Tobacco cessation once again strongly encouraged with tobacco cessation information to be provided at discharge (9) Anemia SNOMED Code(s): 273167037 Code(s): D64.9 - ANEMIA, UNSPECIFIED Status: Chronic Priority: Medium Current Visit: No Onset Date: 01/17/17 Qualifiers: Anemia type: unspecified type Qualified Code(s): D64.9 - Anemia, unspecified Annotation/Comment:: Relatively stable chronic anemia. Mild decreased iron levels with normal ferritin level and vitamin B 12 levels with Transferin level still pending. Initiate iron sulfate therapy. (10) Caries SNOMED Code(s): 51956034 Code(s): K02.9 - DENTAL CARIES, UNSPECIFIED Status: Chronic Priority: Medium Current Visit: No Annotation/Comment:: Multiple caries with follow- up with her dentist VIJAYA after hospital discharge. Dental hygiene and its effect on her diabetes were once again discussed (11) Hypoalbuminemia SNOMED Code(s): 462117614 Code(s): E88.09 - OT DISORDERS OF PLASMA-PROTEIN METABOLISM, NEC Status: Acute Priority: Medium Current Visit: No Onset Date: 01/17/17 Annotation /Comment:: Mild hypoalbuminemia. Initiate twice a day high-protein Glucerna supplements as snacks (12) Hypomagnesemia SNOMED Code(s): 527612928 Code(s): E83.42 - HYPOMAGNESEMIA Status: Acute Priority: Medium Current Visit: No Onset Date: 09/01/17 Annotation/Comment:: Observe for now (13) Hyponatremia SNOMED Code(s): 63558389 Code(s): E87.1 - HYPO-OSMOLALITY AND HYPONATREMIA Status: Acute Priority : Medium Current Visit: No Onset Date: 09/01/17 Annotation/Comment:: Somewhat progressive hyponatremia despite IV fluids as above. Continue to observe closely. (14) Illicit drug use SNOMED Code(s): 886798141 Code(s): F19.90 - OTHER PSYCHOACTIVE SUBSTANCE USE, UNSPECIFIED, UNCOMPLICATED Status: Chronic Priority: Medium Current Visit: Yes Annotation/Comment:: History of distant illicit drug use, including marijuana, in the past with patient denying current illicit drug use. Note positive urine drug screen for marijuana currently, however also note IV Protonix therapy - Problem List Review Problem List Initiated/Reviewed/Updated: Yes - My Orders Last 24 Hours: My Active Orders 09/01/17 09:32 ACETONE,URINE [URCHEM] Stat CULTURE URINE [RM] Stat UA W/MICROSCOPIC [URIN] Urgent 09/01/17 09:33 DRUG SCREEN, URINE [URCHEM] Stat 09/01/17 11:00 Blood Glucose Check, Bedside [RC] Q6HR 09/01/17 15:00 Escitalopram [Lexapro] 10 mg PO DAILY@15 Lisinopril [Prinivil] 10 mg PO DAILY@15 atorvaSTATin [Lipitor] 20 mg PO DAILY@1500 09/01/17 20:00 Temazepam [Restoril] 15 mg PO DAILY@2000 PRN 09/02/17 07:20 TRANSFERRIN [REF] Routine 09/02/17 08:00 Famotidine [Pepcid] 20 mg IVPUSH Q12H Pantoprazole [ProTONIX IV] 40 mg IVPUSH Q12H - Assessment Assessment:: As above - Plan Plan:: As above. Extensive precautions were given to the patient, who is in agreement with the treatment plan. Anticipate hospital discharge within the next 1-2 days.
[2017-09-02] MEDS: atorvaSTATin 10 MG Tab PO SCH (13:59)
[2017-09-02] MEDS: Escitalopram 20 MG Tab PO SCH (14:00)
[2017-09-02] MEDS: Lisinopril 10 MG Tab PO SCH (14:01)
[2017-09-02] MEDS: Ferrous Sulfate 325 MG Tab PO SCH (14:01)
[2017-09-02] MEDS: Metoclopramide 10 MG Tab PO SCH (17:09)
[2017-09-02] MEDS: Magnesium Oxide 400 MG Tab PO SCH (17:09)
[2017-09-02] MEDS ORDERED: Polyethylene Glycol 3350 Powder 17 GM Packet PO ONE (17:36)
[2017-09-02] MEDS: Insulin Detemir 100 Units/ML 3 ML Pen SUBCUT SCH (21:22)
[2017-09-02] MEDS ORDERED: Insulin Regular, Human 100 Units/ML 3 ML Vial IV ONE (21:34)
[2017-09-02] MEDS ORDERED: Insulin Aspart 100 Units/ML 3 ML Pen SUBCUT ONE (22:30)
[2017-09-03] MEDS: Ondansetron 4 MG/2 ML SDV IVPUSH PRN ×2 (01:36→06:56)
[2017-09-03] MEDS: Sodium Chloride 0.9% 10 ML Syringe FLUSH PRN ×4 (01:36→06:56)
[2017-09-03] MEDS: metroNIDAZOLE/Normal Saline 500 MG in Premix Bag 1 BAG IV SCH ×3 (03:09→19:23)
[2017-09-03] MEDS: Promethazine 25 MG/ML SDV IM PRN (03:28)
[2017-09-03] MEDS: cefTRIAXone 1 GM in Sodium Chloride 0.9% 100 ML IV SCH ×2 (04:13→16:11)
[2017-09-03] MEDS: Pantoprazole 40 MG Vial IVPUSH SCH ×2 (07:51→19:24)
[2017-09-03] MEDS: Famotidine 20 MG/2 ML SDV IVPUSH SCH ×2 (07:51→19:24)
[2017-09-03] MEDS: Sodium Chloride 0.9% 10 ML Syringe FLUSH SCH ×2 (07:51→19:24)
[2017-09-03] MEDS: Metoclopramide 10 MG Tab PO SCH ×2 (07:52→17:02)
[2017-09-03] MEDS: Magnesium Oxide 400 MG Tab PO SCH ×2 (07:53→17:02)
[2017-09-03] MEDS: Lactated Ringers 1,000 ML IV SCH ×3 (07:54→21:17)
[2017-09-03 08:12] LABS: CHLORIDE,CL 98 mmol/L (98-107); SODIUM,NA 132 mmol/L (136-145)
[2017-09-03] MEDS ORDERED: Lactated Ringers 1,000 ML IV ONE (09:01)
--- NOTE | 2017-09-03 09:01 | PCM.PN ---
- General Info Date of Service: 09/03/17 Admission Dx/Problem (Free Text): 1. Abdominal pain 2. Dehydration 3. IDDM Functional Status: Reports: Pain Controlled, Tolerating Diet (Although persistent anorexia), Ambulating, Urinating, New Symptoms (Nonspecific diffuse abdominal ache since yesterday). Denies: Incentive Spirometry Pain Score: 2 - Review of Systems General: Reports: Appetite (Persistent anorexia). Denies: Fever, Weakness, Fatigue, Malaise, Chills, Night Sweats HEENT: Reports: No Symptoms. Denies: Dysphasia, Ear Pain, Eye Pain, Headaches, Post Nasal Drip, Sinus Congestion, Sore Throat, Rhinitis, Visual Changes Pulmonary: Reports: No Symptoms. Denies: Shortness of Breath, Pleuritic Chest Pain, Cough, Wheezing Cardiovascular: Reports: No Symptoms. Denies: Chest Pain, Palpitations, Dyspnea on Exertion, Orthopnea, PND, Edema, Lightheadedness Gastrointestinal: Reports: Abdominal Pain, Constipation (Although moderate normal bowel movement this morning), Decreased Appetite, Nausea (Persistent moderate with patient only eating some of her breakfast this morning). Denies: Diarrhea, Difficulty Swallowing, Flatus, Hematochezia, Melena, Vomiting Genitourinary: Reports: No Symptoms. Denies: Dysuria, Frequency, Burning, Pain , Urgency, Incontinence, Hematuria, Retention, Flank Pain Musculoskeletal: Reports: No Symptoms. Denies: Neck Pain, Shoulder Pain, Arm Pain, Back Pain, Leg Pain Skin: Reports: No Symptoms. Denies: Jaundice, Pallor, Diaphoresis, Dryness, Bruising, Pruritis, Rash Neurological: Reports: No Symptoms. Denies: Confusion, Dizziness, Headache, Numbness, Paresthesia, Tingling, Weakness Psychiatric: Reports: No Symptoms. Denies: Confusion, Depression, Anxiety, Agitation, Hallucinations - Patient Data Vitals - Most Recent: Last Vital Signs Temp 36.9 C 09/03/17 05:45 Pulse 92 09/03/17 05:45 Resp 14 09/03/17 05:45 BP 146/67 H 09/03/17 05:45 Pulse Ox 100 09/03/17 05:45 Vital Signs - 24 hr 09/02/17 09/02/17 09/03/17 12:00 18:00 00:00 Temperature [ 36.3 C 36.7 C 36.4 C Temporal] Pulse, 94 103 H 99 Peripheral [ Right Pulse Oximetry] Respiratory 16 16 14 Rate Blood Pressure 140/63 118/53 L 125/56 L [Right Upper Arm] O2 Sat by Pulse 99 98 99 Oximetry 09/03/17 05:45 Temperature [ 36.9 C Temporal] Pulse, 92 Peripheral [ Right Pulse Oximetry] Respiratory 14 Rate Blood Pressure 146/67 H [Right Upper Arm] O2 Sat by Pulse 100 Oximetry Weight - Most Recent: 69.899 kg I&O - Last 24 Hours: Intake & Output 09/02/17 09/03/17 09/03/17 22:59 06:59 14:59 Intake Total 1449 400 Output Total 800 600 Balance 649 -200 Imaging Impressions - Last 24 Hours: Acute abdominal x-rays shows evidence of mild increased nonspecific diffuse bowel gaseous pattern with only very occasional fluid levels and no evidence of significant ileus, obstruction, free air, etc. Decreased stool burden from previous evaluation on admission Lab Results Last 24 Hours: Laboratory Results - last 24 hr 09/02/17 09/02/17 09/02/17 Range/Units 07:20 11:02 16:57 WBC (4.0-10.2) K/uL RBC (3.77-5.09) M/uL Hgb (11.7-15.5) g/dL Hct (34.0-46.0) % MCV (84.0-98.0) fL MCH (28.2-33.3) pg MCHC (31.7-36.0) g/dL RDW (11.2-14.1) % Plt Count (150-350) K/uL Neut % (Auto) (45.0-80.0) % Lymph % (Auto) (10.0-50.0) % [place] % (Auto) (2.0-14.0) % Eos % (Auto) (0.0-5.0) % Baso % (Auto) (0.0-2.0) % Neut # (Auto) (1.40-7.00) K/uL Lymph # (Auto) (0.50-3.50) K/uL [place] # (Auto) (0.00-1.00) K/uL Eos # (Auto) (0.00-0.50) K/uL Baso # (Auto) (0.00-0.20) K/uL Sodium 132 L (136-145) mmol/L Potassium 4.3 (3.5-5.1) mmol/L Chloride 97 L (98-107) mmol/L Carbon Dioxide 20.4 L (21.0-32.0) mmol/L BUN 17 (7-18) mg/dL Creatinine 0.65 (0.51-1.17) mg/dL Est Cr Clr Drug Dosing 110.62 mL/min Estimated GFR (MDRD) > 60 mL/min Glucose 221 H (74-106) mg/dL POC Glucose 297 H* 331 H* (65-110) mg/dl Hemoglobin A1c (4.3-5.7) % Lactic Acid (0.4-2.0) mmol/L Calcium 8.5 (8.5-10.1) mg/dL Phosphorus (2.6-4.7) mg/dL Magnesium 1.4 L (1.8-2.4) mg/dL Total Bilirubin 0.4 (0.2-1.0) mg/dL AST 17 (15-37) U/L ALT 18 (12-78) U/L Alkaline Phosphatase 86 (46-116) IU/L Total Protein 6.5 (6.4-8.2) g/dL Albumin 3.2 L (3.4-5.0) g/dL Amylase 12 L (25-115) U/L Lipase 49 L (73-393) U/L Vitamin B12 926 (193-986) pg/mL Ketones 09/02/17 09/03/17 09/03/17 Range/Units 21:22 00:12 03:19 WBC (4.0-10.2) K/uL RBC (3.77-5.09) M/uL Hgb (11.7-15.5) g/dL Hct (34.0-46.0) % MCV (84.0-98.0) fL MCH (28.2-33.3) pg MCHC (31.7-36.0) g/dL RDW (11.2-14.1) % Plt Count (150-350) K/uL Neut % (Auto) (45.0-80.0) % Lymph % (Auto) (10.0-50.0) % [place] % (Auto) (2.0-14.0) % Eos % (Auto) (0.0-5.0) % Baso % (Auto) (0.0-2.0) % Neut # (Auto) (1.40-7.00) K/uL Lymph # (Auto) (0.50-3.50) K/uL [place] # (Auto) (0.00-1.00) K/uL Eos # (Auto) (0.00-0.50) K/uL Baso # (Auto) (0.00-0.20) K/uL Sodium (136-145) mmol/L Potassium (3.5-5.1) mmol/L Chloride (98-107) mmol/L Carbon Dioxide (21.0-32.0) mmol/L BUN (7-18) mg/dL Creatinine (0.51-1.17) mg/dL Est Cr Clr Drug Dosing mL/min Estimated GFR (MDRD) mL/min Glucose (74-106) mg/dL POC Glucose 409 H* 248 H 180 H (65-110) mg/dl Hemoglobin A1c (4.3-5.7) % Lactic Acid (0.4-2.0) mmol/L Calcium (8.5-10.1) mg/dL Phosphorus (2.6-4.7) mg/dL Magnesium (1.8-2.4) mg/dL Total Bilirubin (0.2-1.0) mg/dL AST (15-37) U/L ALT (12-78) U/L Alkaline Phosphatase (46-116) IU/L Total Protein (6.4-8.2) g/dL Albumin (3.4-5.0) g/dL Amylase (25-115) U/L Lipase (73-393) U/L Vitamin B12 (193-986) pg/mL Ketones 09/03/17 09/03/17 09/03/17 Range/Units 07:35 07:35 07:35 WBC 7.1 (4.0-10.2) K/uL RBC 3.68 L (3.77-5.09) M/uL Hgb 11.0 L (11.7-15.5) g/dL Hct 32.8 L (34.0-46.0) % MCV 89.1 (84.0-98.0) fL MCH 29.9 (28.2-33.3) pg MCHC 33.5 (31.7-36.0) g/dL RDW 12.9 (11.2-14.1) % Plt Count 250 (150-350) K/uL Neut % (Auto) 64.8 (45.0-80.0) % Lymph % (Auto) 24.0 (10.0-50.0) % [place] % (Auto) 9.3 (2.0-14.0) % Eos % (Auto) 1.1 (0.0-5.0) % Baso % (Auto) 0.8 (0.0-2.0) % Neut # (Auto) 4.59 (1.40-7.00) K/uL Lymph # (Auto) 1.70 (0.50-3.50) K/uL [place] # (Auto) 0.66 (0.00-1.00) K/uL Eos # (Auto) 0.08 (0.00-0.50) K/uL Baso # (Auto) 0.06 (0.00-0.20) K/uL Sodium 132 L (136-145) mmol/L Potassium 4.1 (3.5-5.1) mmol/L Chloride 98 (98-107) mmol/L Carbon Dioxide 26.4 (21.0-32.0) mmol/L BUN 13 (7-18) mg/dL Creatinine 0.57 (0.51-1.17) mg/dL Est Cr Clr Drug Dosing 125.69 mL/min Estimated GFR (MDRD) > 60 mL/min Glucose 133 H (74-106) mg/dL POC Glucose (65-110) mg/dl Hemoglobin A1c (4.3-5.7) % Lactic Acid 0.9 (0.4-2.0) mmol/L Calcium 8.7 (8.5-10.1) mg/dL Phosphorus 1.9 L (2.6-4.7) mg/dL Magnesium (1.8-2.4) mg/dL Total Bilirubin (0.2-1.0) mg/dL AST (15-37) U/L ALT (12-78) U/L Alkaline Phosphatase (46-116) IU/L Total Protein (6.4-8.2) g/dL Albumin (3.4-5.0) g/dL Amylase (25-115) U/L Lipase (73-393) U/L Vitamin B12 (193-986) pg/mL Ketones 09/03/17 09/03/17 09/03/17 Range/Units 07:35 07:35 07:50 WBC (4.0-10.2) K/uL RBC (3.77-5.09) M/uL Hgb (11.7-15.5) g/dL Hct (34.0-46.0) % MCV (84.0-98.0) fL MCH (28.2-33.3) pg MCHC (31.7-36.0) g/dL RDW (11.2-14.1) % Plt Count (150-350) K/uL Neut % (Auto) (45.0-80.0) % Lymph % (Auto) (10.0-50.0) % [place] % (Auto) (2.0-14.0) % Eos % (Auto) (0.0-5.0) % Baso % (Auto) (0.0-2.0) % Neut # (Auto) (1.40-7.00) K/uL Lymph # (Auto) (0.50-3.50) K/uL [place] # (Auto) (0.00-1.00) K/uL Eos # (Auto) (0.00-0.50) K/uL Baso # (Auto) (0.00-0.20) K/uL Sodium (136-145) mmol/L Potassium (3.5-5.1) mmol/L Chloride (98-107) mmol/L Carbon Dioxide (21.0-32.0) mmol/L BUN (7-18) mg/dL Creatinine (0.51-1.17) mg/dL Est Cr Clr Drug Dosing mL/min Estimated GFR (MDRD) mL/min Glucose (74-106) mg/dL POC Glucose 119 H (65-110) mg/dl Hemoglobin A1c 11.6 H (4.3-5.7) % Lactic Acid (0.4-2.0) mmol/L Calcium (8.5-10.1) mg/dL Phosphorus (2.6-4.7) mg/dL Magnesium (1.8-2.4) mg/dL Total Bilirubin (0.2-1.0) mg/dL AST (15-37) U/L ALT (12-78) U/L Alkaline Phosphatase (46-116) IU/L Total Protein (6.4-8.2) g/dL Albumin (3.4-5.0) g/dL Amylase (25-115) U/L Lipase (73-393) U/L Vitamin B12 (193-986) pg/mL Ketones Positive [facility] Results Last 24 Hours: Microbiology 09/02/17 10:27 Stool Occult Blood (OSMAN) - Final Stool / Feces NEGATIVE OCCULT BLOOD 09/01/17 04:30 Aerobic Blood Culture - Preliminary Blood - Venous - Lab Draw NO GROWTH AFTER 2 DAYS Anaerobic Blood Culture - Preliminary NO GROWTH AFTER 2 DAYS 09/01/17 03:50 Aerobic Blood Culture - Preliminary Blood - Venous NO GROWTH AFTER 2 DAYS Anaerobic Blood Culture - Preliminary NO GROWTH AFTER 2 DAYS 09/01/17 09:32 Urine Culture - Final Urine, Clean Catch MIXED MARY CARMEN SUGGESTIVE OF CONTAMINATION. 09/01/17 03:31 Stool Occult Blood (OSMAN) - Final Stool / Feces NEGATIVE OCCULT BLOOD Med Orders - Current: Current Medications Acetaminophen (Tylenol) 650 mg PO Q4H PRN PRN Reason: Pain Last Admin: 09/01/17 20:14 Dose: 650 mg Atorvastatin Calcium (Lipitor) 20 mg PO DAILY@1500 [facility] Last Admin: 09/02/17 13:59 Dose: 20 mg Escitalopram Oxalate (Lexapro) 10 mg PO DAILY@15 [facility] Last Admin: 09/02/17 14:00 Dose: 10 mg Famotidine (Pepcid) 20 mg IVPUSH Q12H [facility] Last Admin: 09/03/17 07:51 Dose: 20 mg Ferrous Sulfate (Ferrous Sulfate) 325 mg PO DAILY@15 [facility] Last Admin: 09/02/17 14:01 Dose: 325 mg Ceftriaxone Sodium 1 gm/ (Sodium Chloride) 100 mls @ 200 mls/hr IV Q12H [facility] Last Admin: 09/03/17 04:13 Dose: 200 mls/hr Metronidazole 500 mg/ Premix 100 mls @ 100 mls/hr IV Q8H [facility] Last Admin: 09/03/17 03:09 Dose: 100 mls/hr Lactated Ringer's (Ringers, Lactated) 1,000 mls @ 125 mls/hr IV ASDIRECTED [facility] Last Admin: 09/03/17 07:54 Dose: 100 mls/hr Insulin Aspart (Novolog) 0 unit SUBCUT ACBED [facility]; Protocol Insulin Detemir (Levemir) 20 unit SUBCUT BEDTIME [facility] Last Admin: 09/02/17 21:22 Dose: 20 unit Lisinopril (Prinivil) 10 mg PO DAILY@15 [facility] Last Admin: 09/02/17 14:01 Dose: 10 mg Magnesium Oxide (Magnesium Oxide) 400 mg PO BID [facility] Last Admin: 09/03/17 07:53 Dose: 400 mg Metoclopramide HCl (Reglan) 10 mg PO BIDAC [facility] Last Admin: 09/03/17 07:52 Dose: 10 mg Ondansetron HCl (Zofran) 4 mg IVPUSH Q6H PRN PRN Reason: Nausea/Vomiting Last Admin: 09/03/17 06:56 Dose: 4 mg Pantoprazole Sodium (Protonix Iv) 40 mg IVPUSH Q12H [facility] Last Admin: 09/03/17 07:51 Dose: 40 mg Promethazine HCl (Phenergan) 25 mg IM Q6H PRN PRN Reason: Nausea/Vomiting Last Admin: 09/03/17 03:28 Dose: 25 mg Sodium Chloride (Saline Flush) 10 ml FLUSH ASDIRECTED PRN PRN Reason: Keep Vein Open Last Admin: 09/03/17 06:56 Dose: 10 ml Sodium Chloride (Saline Flush) 10 ml FLUSH Q12HR [facility] Last Admin: 09/03/17 07:51 Dose: 10 ml Temazepam (Restoril) 15 mg PO DAILY@2000 PRN PRN Reason: Insomnia Discontinued Medications Acetaminophen (Tylenol) 650 mg PO Q4H PRN PRN Reason: Pain Famotidine (Pepcid) 40 mg IVPUSH ONETIME ONE Stop: 09/01/17 03:31 Last Admin: 09/01/17 03:51 Dose: 40 mg Lactated Ringer's (Ringers, Lactated) 1,000 mls @ 999 mls/hr IV .BOLUS ONE Stop: 09/01/17 04:30 Last Admin: 09/01/17 06:15 Dose: 999 mls/hr Ceftriaxone Sodium 1 gm/ (Sodium Chloride) 100 mls @ 200 mls/hr IV Q12H [facility] Metronidazole 500 mg/ Premix 100 mls @ 100 mls/hr IV Q8H [facility] Sodium Chloride (Normal Saline) 1,000 mls @ 999 mls/hr IV .BOLUS ONE Stop: 09/02/17 00:12 Last Admin: 09/02/17 00:18 Dose: 999 mls/hr Insulin Aspart (Novolog) 0 unit SUBCUT Q6H [facility]; Protocol Last Admin: 09/02/17 17:09 Dose: 10 units Insulin Aspart (Novolog) 0 unit SUBCUT ACBED [facility]; Protocol Insulin Aspart (Novolog) 0 unit SUBCUT ONETIME ONE; Protocol Stop: 09/02/17 22:31 Last Admin: 09/02/17 22:26 Dose: 12 unit Insulin Human Regular (Humulin R) 10 unit IV ONETIME ONE Stop: 09/02/17 21:35 Last Admin: 09/02/17 21:54 Dose: 10 unit Magnesium Citrate (Citrate Of Magnesia) 296 ml PO ONETIME ONE Stop: 09/01/17 23:25 Last Admin: 09/02/17 08:27 Dose: Not Given Magnesium Citrate (Citrate Of Magnesia) Confirm Administered Dose 296 ml .ROUTE .STK-MED ONE Stop: 09/02/17 07:50 Last Admin: 09/02/17 08:00 Dose: 296 ml Metoclopramide HCl (Reglan) 10 mg IVPUSH Q6H PRN PRN Reason: Nausea/Vomiting Last Admin: 09/02/17 05:09 Dose: 10 mg Ondansetron HCl (Zofran) 4 mg IVPUSH ONETIME ONE Stop: 09/01/17 03:31 Last Admin: 09/01/17 03:46 Dose: 4 mg Pantoprazole Sodium (Protonix Iv) 40 mg IVPUSH ONETIME ONE Stop: 09/01/17 03:31 Last Admin: 09/01/17 03:49 Dose: 40 mg Polyethylene Glycol (Miralax) 17 gm PO ONETIME ONE Stop: 09/02/17 17:37 Last Admin: 09/02/17 17:47 Dose: 17 gm - Exam Quality Assessment: DVT Prophylaxis. No: Supplemental Oxygen, Central Line/PICC , Urine Catheter, Skin Breakdown, Restraints General: Alert, Oriented, Cooperative, No Acute Distress HEENT: Pupils Equal, Pupils Reactive, EOMI, Mucous Membr. Moist/[place] Neck: Supple, Trachea Midline, No JVD, No Thyromegaly. No: Lymphadenopathy Lungs: Clear to Auscultation, Normal Respiratory Effort. No: Rub Cardiovascular: Regular Rate, Regular Rhythm, No Murmurs. No: Gallops, Rubs GI/Abdominal Exam: Normal Bowel Sounds, Soft, Non-Tender, No Organomegaly, No Distention, No Abnormal Bruit, No Mass. No: Guarding (Female) Exam: Deferred Back Exam: Normal Inspection, Full Range of Motion. No: CVA Tenderness (L), CVA Tenderness (R), Muscle Spasm Extremities: Normal Inspection, Normal Range of Motion, Non-Tender, No Pedal Edema, Normal Capillary Refill. No: Paty's Sign Peripheral Pulses: 2+: Radial (L), Radial (R), Dorsalis Pedis (L), Dorsalis Pedis (R) Skin: Warm, Dry, Intact. No: Ecchymosis Neurological: No New Focal Deficit, Other (No clinical orthostasis) Psy/Mental Status: Alert, Normal Affect, Normal Mood. No: Agitated, Hallucinations, Withdrawal Symptoms - Problem List & Annotations (1) Abdominal pain SNOMED Code(s): 89262742 Code(s): R10.9 - UNSPECIFIED ABDOMINAL PAIN Status: Acute Priority: High Current Visit: Yes Onset Date: ~08/30/17 Qualifiers: Abdominal location: generalized Qualified Code(s): R10.84 - Generalized abdominal pain Annotation/Comment:: Nonspecific Abdominal pain returned this morning although clinical exam relatively unremarkable today. Persistent anorexia with refractory constipation during this hospitalization requiring magnesium citrate , MiraLAX, enemas. Patient did have a moderately good bowel movement this morning with improved abdominal x-rays today. Hemoccult was negative. Note persistent ketones with patient to be given an additional 1 L IV bolus of lactated Ringer's current IV fluids also did increase to 150 mL per hour thereafter. Repeat blood work in the a.m.. Consider ABGs depending on her clinical course. Continue aggressive IV fluids, sliding scale, NovoLog therapy, and IV Rocephin/Flagyl therapy. Mild anemia is stable with no evidence of GI bleed. Discontinue abdominal assessment with vitals. Try to advance diet today. Change IV Reglan to twice a day with 4 times a day when necessary oral regimen. Note that the patient was aggressively treated in the emergency room, including high-dose IV Pepcid, IV Protonix, and initiation of IV Rocephin and Flagyl. Note initial 1 L IV bolus of lactated Ringer's. No signs of peritonitis on admission. Further GI consultation depending on her clinical course. Minimal trace hematemesis from refractory vomiting, including in the emergency room, with no recurrence since admission. Lactic acid level was normal on admission. Probable viral gastroenteritis versus diabetic gastroenteropathy. (2) IDDM (insulin dependent diabetes mellitus) SNOMED Code(s): 96963329 Code(s): E11.9 - TYPE 2 DIABETES MELLITUS WITHOUT COMPLICATIONS; Z79.4 - RUBBLE PLACER (CURRENT) USE OF INSULIN Status: Chronic Priority: High Current Visit: Yes Annotation/Comment:: Borderline ketoacidosis with negative blood and urine cultures to this point. Continue aggressive insulin therapy, including sliding scale, etc., with one dose of 10 mg Humulin regular IV required yesterday evening and blood sugar much improved this morning. Her diabetes has been under extremely poor control recently with patient apparently previously on a sliding scale at home, although she has been somewhat noncompliant with this. Glycosylated hemoglobin 11.6% today. Her previous Levemir will be changed to a daily at bedtime basis with this started yesterday. Initiate NovoLog Mix twice a day regimen this morning. Oral intake to be encouraged with initiation of high protein Glucerna snacks this morning, and the patient encouraged to graze throughout the day. Patient is also somewhat behind on her routine preventative healthcare. Follow-up visits with her regular provider on at least an every 3 month basis advisable with mammogram , etc. to be conducted VIJAYA (3) Dehydration SNOMED Code(s): 95443524 Code(s): E86.0 - DEHYDRATION Status: Acute Priority: High Current Visit : Yes Onset Date: ~09/01/17 Annotation/Comment:: Ketones still elevated with increased IV fluids as above (4) CHF (congestive heart failure) SNOMED Code(s): 70063668 Code(s): I50.9 - HEART FAILURE, UNSPECIFIED Status: Chronic Priority: Medium Current Visit: Yes Onset Date: 01/16/17 Qualifiers: Heart failure type: other Qualified Code(s): I50.9 - Heart failure, unspecified Annotation/Comment:: No chest pain or anginal type symptoms with no clinical evidence of exacerbation of her chronic CHF despite aggressive IV fluids as above (5) COPD (chronic obstructive pulmonary disease) SNOMED Code(s): 48054926 Code(s): J44.9 - CHRONIC OBSTRUCTIVE PULMONARY DISEASE, UNSPECIFIED Status : Chronic Priority: Medium Current Visit: Yes Qualifiers: COPD type: emphysema Emphysema type: panlobular Qualified Code(s): J43.1 - Panlobular emphysema Annotation/Comment:: COPD by chest x-ray with no significant recent bronchitic type symptoms, fever, etc. No evidence of aspiration. (6) Osteoarthritis SNOMED Code(s): 817422331 Code(s): M19.90 - UNSPECIFIED OSTEOARTHRITIS, UNSPECIFIED SITE Status: Chronic Priority: Medium Current Visit: Yes Qualifiers: Osteoarthritis location: multiple joints Osteoarthritis type: primary Qualified Code(s): M15.0 - Primary generalized (osteo)arthritis Annotation/Comment:: Otherwise stable by history (7) Peptic reflux disease SNOMED Code(s): 264906145 Code(s): K21.9 - GASTRO-ESOPHAGEAL REFLUX DISEASE WITHOUT ESOPHAGITIS Status: Chronic Priority: Medium Current Visit: Yes Annotation/Comment:: Stable by history with IV Pepcid and IV Protonix to be continued during this hospitalization for now. Anemia is relatively stable with iron supplementation in effect. (8) Tobacco abuse counseling SNOMED Code(s): 164714330, 935507028, 862943014 Code(s): Z71.6 - TOBACCO ABUSE COUNSELING Status: Chronic Priority: Medium Current Visit: Yes Annotation/Comment:: Nicotine patch initiated today. Tobacco cessation once again strongly encouraged with tobacco cessation information to be provided at discharge. (9) Anemia SNOMED Code(s): 949715906 Code(s): D64.9 - ANEMIA, UNSPECIFIED Status: Chronic Priority: Medium Current Visit: Yes Onset Date: 01/17/17 Qualifiers: Anemia type: iron deficiency Annotation/Comment:: Relatively stable chronic anemia. Mild decreased iron levels with normal ferritin level and vitamin B 12 levels with Transferin level still pending. Initiated iron sulfate therapy on 09/02. (10) Caries SNOMED Code(s): 82997708 Code(s): K02.9 - DENTAL CARIES, UNSPECIFIED Status: Chronic Priority: Medium Current Visit: Yes Annotation/Comment:: Multiple caries with follow- up with her dentist VIJAYA after hospital discharge. Dental hygiene and its effect on her diabetes were once again discussed (11) Hypoalbuminemia SNOMED Code(s): 138946719 Code(s): E88.09 - OTH DISORDERS OF PLASMA-PROTEIN METABOLISM, NEC Status: Acute Priority: Medium Current Visit: Yes Onset Date: 01/17/17 Annotation/Comment:: Mild hypoalbuminemia. Initiate twice a day high-protein Glucerna supplements as snacks as above (12) Hypomagnesemia SNOMED Code(s): 670566319 Code(s): E83.42 - HYPOMAGNESEMIA Status: Acute Priority: Medium Current Visit: Yes Onset Date: 09/01/17 Annotation/Comment:: Magnesium oxide supplementations initiated with repeat magnesium level tomorrow (13) Hyponatremia SNOMED Code(s): 17711184 Code(s): E87.1 - HYPO-OSMOLALITY AND HYPONATREMIA Status: Acute Priority : Medium Current Visit: Yes Onset Date: 09/01/17 Annotation/Comment:: Continue IV fluids as above. Continue to observe closely. (14) Illicit drug use SNOMED Code(s): 568435708 Code(s): F19.90 - OTHER PSYCHOACTIVE SUBSTANCE USE, UNSPECIFIED, UNCOMPLICATED Status: Chronic Priority: Medium Current Visit: Yes Annotation/Comment:: History of distant illicit drug use, including marijuana, in the past with patient denying current illicit drug use. Note positive urine drug screen for marijuana currently, however also note IV Protonix therapy (15) Hypophosphatemia SNOMED Code(s): 2485808 Code(s): E83.39 - OTHER DISORDERS OF PHOSPHORUS METABOLISM Status: Acute Priority: Medium Current Visit: Yes Onset Date: 09/03/17 Annotation/ Comment:: Observe for now. Continue IV fluids as above. - Problem List Review Problem List Initiated/Reviewed/Updated: Yes - My Orders Last 24 Hours: My Active Orders 09/02/17 08:00 Famotidine [Pepcid] 20 mg IVPUSH Q12H Pantoprazole [ProTONIX IV] 40 mg IVPUSH Q12H 09/02/17 10:27 OCCULT BLOOD DIAGNOSTIC [OP] Stat 09/02/17 15:00 Ferrous Sulfate 325 mg PO DAILY@15 09/02/17 18:00 Magnesium Oxide 400 mg PO BID Metoclopramide [Reglan] 10 mg PO BIDAC 09/02/17 20:00 Insulin Detemir [Levemir] 20 unit SUBCUT BEDTIME 09/02/17 21:30 Insulin Aspart [NovoLOG] See Protocol SUBCUT ACBED 09/02/17 23:00 Blood Glucose Check, Bedside [RC] STAT 09/02/17 Dinner [employer] Diet [DIET] 09/03/17 03:00 Blood Glucose Check, Bedside [RC] STAT 09/03/17 05:11 Abdomen Series w Chest 1V [CR] Routine ACETONE,URINE [URCHEM] Routine - Assessment Assessment:: As above - Plan Plan:: As above. Extensive precautions were given to the patient, who is in agreement with the treatment plan. Anticipate hospital discharge within the next 1-2 days.
[2017-09-03] MEDS ORDERED: Insuln Aspart Prot/Insulin Aspart 100 Units/ML 3 ML FlexPen SUBCUT SCH (09:09)
[2017-09-03] MEDS: Insulin Aspart 100 Units/ML 3 ML Pen SUBCUT SCH ×4 (09:43→20:39)
[2017-09-03] MEDS: Nicotine 21 MG/24 Hr Patch TRDERM SCH (09:50)
[2017-09-03] MEDS: Escitalopram 20 MG Tab PO SCH (16:16)
[2017-09-03] MEDS: Lisinopril 10 MG Tab PO SCH (16:17)
[2017-09-03] MEDS: Ferrous Sulfate 325 MG Tab PO SCH (16:18)
[2017-09-03] MEDS: atorvaSTATin 10 MG Tab PO SCH (16:18)
[2017-09-03] MEDS: Insuln Aspart Prot/Insulin Aspart 100 Units/ML 3 ML FlexPen SUBCUT SCH (17:04)
[2017-09-03] MEDS: Insulin Detemir 100 Units/ML 3 ML Pen SUBCUT SCH (20:38)
[2017-09-03] MEDS ORDERED: Insulin Aspart 100 Units/ML 3 ML Pen SUBCUT SCH (21:39)
[2017-09-04] MEDS: Sodium Chloride 0.9% 10 ML Syringe FLUSH PRN ×3 (02:31→07:22)
[2017-09-04] MEDS: metroNIDAZOLE/Normal Saline 500 MG in Premix Bag 1 BAG IV SCH (02:31)
[2017-09-04] MEDS: cefTRIAXone 1 GM in Sodium Chloride 0.9% 100 ML IV SCH (03:41)
[2017-09-04] MEDS: Acetaminophen 325 MG Tab PO PRN (06:27)
[2017-09-04] MEDS: Lactated Ringers 1,000 ML IV SCH (06:28)
[2017-09-04 07:17] VITALS: BP 152/77
[2017-09-04] MEDS: Insulin Aspart 100 Units/ML 3 ML Pen SUBCUT SCH (07:18)
[2017-09-04] MEDS: Nicotine 21 MG/24 Hr Patch TRDERM SCH (07:18)
[2017-09-04] MEDS: Pantoprazole 40 MG Vial IVPUSH SCH (07:20)
[2017-09-04] MEDS: Sodium Chloride 0.9% 10 ML Syringe FLUSH SCH (07:21)
[2017-09-04] MEDS: Magnesium Oxide 400 MG Tab PO SCH (07:22)
[2017-09-04] MEDS: Famotidine 20 MG/2 ML SDV IVPUSH SCH (07:22)
[2017-09-04] MEDS: Metoclopramide 10 MG Tab PO SCH (07:27)
[2017-09-04 07:46] LABS: CHLORIDE,CL 101 mmol/L (98-107); SODIUM,NA 139 mmol/L (136-145)
[2017-09-04] MEDS ORDERED: REMOVE NICOTINE TRDERM SCH (08:00)
[2017-09-04] MEDS: Insuln Aspart Prot/Insulin Aspart 100 Units/ML 3 ML FlexPen SUBCUT SCH (08:39)
--- NOTE | 2017-09-04 10:09 | PCM.DCSUM1 ---
Discharge Summary - Hospital Course HPI Initial Comments: See emergency room note/admission H&P Brief History: See emergency room note/admission H&P - Discharge Data Discharge Date: 09/04/17 Discharge Disposition: Home, Self-Care 01 Condition: Good - Discharge Diagnosis/Problem(s) (1) Abdominal pain SNOMED Code(s): 50885187 ICD Code: R10.9 - UNSPECIFIED ABDOMINAL PAIN Status: Acute Priority: High Current Visit: Yes Onset Date: ~08/30/17 Problem Details: Abdominal pain has resolved at this time with significantly improved oral intake. Very occasional nausea with no additional medications required other than twice a day with oral Reglan therapy. Blood sugars are under much better control despite persistent positive ketones today with no evidence of significant ketoacidosis. The patient wishes to go home today. Work excuse provided. Constipation has resolved with 5 loose stools since yesterday secondary to previous MiraLAX, magnesium citrate, etc. Only mild low-grade fever today with no leukocytosis and negative cultures to this point as above. No need for further antibiotics at this time. Refractory constipation earlier during this hospitalization requiring magnesium citrate, MiraLAX, and enemas. Improved abdominal x-rays yesterday. Hemoccult was negative. Note aggressive IV hydration during this hospitalization and oral fluids to be encouraged at home. Continue sliding scale, NovoLog Mix therapy, and Levemir with patient given some diabetic teaching during today's rounds by me and also counseled on the importance of follow-up with her dentist VIJAYA to help control for diabetes in the future. Compliance with medications, including twice a day sliding scale, etc. was strongly encouraged. Note that the patient was aggressively treated in the emergency room, including high-dose IV Pepcid, IV Protonix, and initiation of IV Rocephin and Flagyl and continuation of this therapy during this hospitalization. Note initial 1 L IV bolus of lactated Ringer's in the emergency room and subsequent aggressive IV fluid boluses and continuous infusion as above. No signs of peritonitis on admission. Further GI consultation depending on her clinical course. Minimal trace hematemesis from refractory vomiting prior to admission, including in the emergency room, with no recurrence since admission. Lactic acid level was normal on admission. Probable viral gastroenteritis versus diabetic gastroenteropathy. Acetone also elevated in urine with repeat specimen unable to be obtained. Qualifiers: Abdominal location: generalized Qualified Code(s): R10.84 - Generalized abdominal pain (2) IDDM (insulin dependent diabetes mellitus) SNOMED Code(s): 64447646 ICD Code: E11.9 - TYPE 2 DIABETES MELLITUS WITHOUT COMPLICATIONS; Z79.4 - [facility] (CURRENT) USE OF INSULIN Status: Chronic Priority: High Current Visit: Yes Problem Details: Borderline ketoacidosis as above with negative blood and urine cultures to this point. Continue aggressive insulin therapy, including sliding scale, etc., as above. One dose of 10 mg Humulin regular IV required on 09/02 with no insulin infusion required. Her diabetes has been under extremely poor control recently with patient apparently previously on a sliding scale at home, although she has been somewhat noncompliant with this therapy. Glycosylated hemoglobin 11.6% on 09/03. Her previous Levemir will be changed to a daily at bedtime basis with this started yesterday. Multiple medication changes during this hospitalization with further adjustment by her regular provider. Continue high protein Glucerna snacks, and the patient encouraged to graze throughout the day. Patient is also somewhat behind on her routine preventative healthcare. Follow-up visits with her regular provider on at least an every 3 month basis advisable with mammogram, etc. to be conducted VIJAYA (3) Dehydration SNOMED Code(s): 91189766 ICD Code: E86.0 - DEHYDRATION Status: Acute Priority: High Current Visit: Yes Onset Date: ~09/01/17 Problem Details: Ketones still elevated at discharge despite aggressive IV hydration as above. Continue to encourage oral fluids. (4) CHF (congestive heart failure) SNOMED Code(s): 20126177 ICD Code: I50.9 - HEART FAILURE, UNSPECIFIED Status: Chronic Priority: Medium Current Visit: Yes Onset Date: 01/16/17 Problem Details: No chest pain or anginal type symptoms with no clinical evidence of exacerbation of her chronic CHF despite aggressive IV fluids as above Qualifiers: Heart failure type: other Qualified Code(s): I50.9 - Heart failure, unspecified (5) COPD (chronic obstructive pulmonary disease) SNOMED Code(s): 76313892 ICD Code: J44.9 - CHRONIC OBSTRUCTIVE PULMONARY DISEASE, UNSPECIFIED Status : Chronic Priority: Medium Current Visit: Yes Problem Details: COPD by chest x-ray with no significant recent bronchitic type symptoms, fever, etc. No evidence of aspiration. Qualifiers: COPD type: emphysema Emphysema type: panlobular Qualified Code(s): J43.1 - Panlobular emphysema (6) Osteoarthritis SNOMED Code(s): 032377577 ICD Code: M19.90 - UNSPECIFIED OSTEOARTHRITIS, UNSPECIFIED SITE Status: Chronic Priority: Medium Current Visit: Yes Problem Details: Otherwise stable by history Qualifiers: Osteoarthritis location: multiple joints Osteoarthritis type: primary Qualified Code(s): M15.0 - Primary generalized (osteo)arthritis (7) Peptic reflux disease SNOMED Code(s): 389632274 ICD Code: K21.9 - GASTRO-ESOPHAGEAL REFLUX DISEASE WITHOUT ESOPHAGITIS Status: Chronic Priority: Medium Current Visit: Yes Problem Details: Stable by history with IV Pepcid and IV Protonix during this hospitalization for now. Anemia is relatively stable with iron supplementation in effect. (8) Tobacco abuse counseling SNOMED Code(s): 800208029, 441486429, 728896763 ICD Code: Z71.6 - TOBACCO ABUSE COUNSELING Status: Chronic Priority: Medium Current Visit: Yes Problem Details: Nicotine patch initiated today. Tobacco cessation once again strongly encouraged with tobacco cessation information to be provided at discharge. (9) Anemia SNOMED Code(s): 350641219 ICD Code: D64.9 - ANEMIA, UNSPECIFIED Status: Chronic Priority: Medium Current Visit: Yes Onset Date: 01/17/17 Problem Details: Relatively stable chronic anemia. Mild decreased iron levels with normal ferritin level and vitamin B 12 levels with Transferin level still pending. Initiated iron sulfate therapy on 09/02. Qualifiers: Anemia type: iron deficiency (10) Caries SNOMED Code(s): 19878508 ICD Code: K02.9 - DENTAL CARIES, UNSPECIFIED Status: Chronic Priority: Medium Current Visit: Yes Problem Details: Multiple caries with follow-up with her dentist VIJAYA after hospital discharge. Dental hygiene and its effect on her diabetes were once again discussed as above. (11) Hypoalbuminemia SNOMED Code(s): 999607940 ICD Code: E88.09 - [facility] DISORDERS OF PLASMA-PROTEIN METABOLISM, NEC Status: Acute Priority: Medium Current Visit: Yes Onset Date: 01/17/17 Problem Details: Mild hypoalbuminemia. Initiate twice a day high-protein Glucerna supplements as snacks as above (12) Hypomagnesemia SNOMED Code(s): 419984778 ICD Code: E83.42 - HYPOMAGNESEMIA Status: Acute Priority: Medium Current Visit: Yes Onset Date: 09/01/17 Problem Details: Magnesium oxide supplementations initiated with repeat magnesium level still somewhat decreased today. No further increase of this supplement for now secondary to her mild diarrhea, however close follow-up by her regular provider tomorrow (13) Hyponatremia SNOMED Code(s): 61813191 ICD Code: E87.1 - HYPO-OSMOLALITY AND HYPONATREMIA Status: Acute Priority : Medium Current Visit: Yes Onset Date: 09/01/17 Problem Details: Normal Sodium level today with good response to aggressive IV hydration as above. Continue to observe closely. (14) Illicit drug use SNOMED Code(s): 448963638 ICD Code: F19.90 - OTHER PSYCHOACTIVE SUBSTANCE USE, UNSPECIFIED, UNCOMPLICATED Status: Chronic Priority: Medium Current Visit: Yes Problem Details: History of distant illicit drug use, including marijuana, in the past with patient denying current illicit drug use. Note positive urine drug screen for marijuana currently, however also note IV Protonix therapy (15) Hypophosphatemia SNOMED Code(s): 1364653 ICD Code: E83.39 - OTHER DISORDERS OF PHOSPHORUS METABOLISM Status: Acute Priority: Medium Current Visit: Yes Onset Date: 09/03/17 Problem Details : Observe for now with repeat level at follow-up. (16) Hypokalemia SNOMED Code(s): 38564459 ICD Code: E87.6 - HYPOKALEMIA Status: Acute Priority: Medium Current Visit: Yes Onset Date: 09/04/17 Problem Details: Sports drinks as per discharge instructions - Patient Summary/Data Operative Procedure(s) Performed: None Complications: None Consults: None Labs Pending at D/C: Transferin level and final blood culture results Recommended Follow-up Testing/Procedures: As per discharge instructions Planned Operative Procedure(s) after DC: None Hospital Course: Patient was admitted to inpatient/acute care with progressive therapy as above. Symptoms were somewhat refractory to treatment with some evidence of ketoacidosis, however no complications during this hospitalization. In spite of persistent serum ketones at discharge no evidence of significant clinical ketoacidosis as above. Patient does want to go home today with extensive precautions given. - Patient Instructions Diet: Diabetic Diet (2000-calorie ADA, heart healthy) Diet, Other: Glucerna high-protein supplements twice a day as snacks Activity: As Tolerated Driving: May Drive Today Showering/Bathing: May Shower Notify Provider of: Fever, Increased Pain, Nausea and/or Vomiting Other/Special Instructions: 1. Follow-up with your regular provider in one week for reevaluation and recommended repeat CBC, comprehensive metabolic panel, magnesium level, phosphate level, and ketones. 2. Walnut diet including encouragement of oral fluids such as sports drinks, etc. for 24-48 hours as directed. Advance to ADA, heart healthy, etc. diet, including Glucerna high- protein supplements supplements as tolerated thereafter as per other discharge instructions. 3. Follow-up with your dentist VIJAYA. 4. Strict compliance as all medications, including with twice a day before meals sliding scalesee form. 5. Stop all tobacco use VIJAYA as directed/per provided information and consider contacting [facility], etc.. - Discharge Plan Prescriptions/Med Rec: Ferrous Sulfate 325 mg PO BID #60 tablet Insuln Asp Prot/Insulin Aspart [NovoLOG Mix 70-30] 10 unit SUBCUT BIDMEALS #1 pen Magnesium Oxide 400 mg PO BID #60 tablet Nicotine [Habitrol] 21 mg TRDERM DAILY #30 patch Home Medications: Home Meds Aspirin [Ecotrin] 81 mg PO DAILY@07/03/14 [History] Ibuprofen 400 mg PO Q6HR PRN 01/16/17 [History] Acetaminophen [Tylenol] 650 mg PO Q4H PRN #0 tablet 01/19/17 [Rx] Escitalopram [Lexapro] 10 mg PO DAILY@09/01/17 [History] Lisinopril [Zestril] 10 mg PO DAILY@09/01/17 [History] atorvaSTATin [Lipitor] 20 mg PO DAILY@09/01/17 [History] Ferrous Sulfate 325 mg PO BID #60 tablet 09/04/17 [Rx] Insulin Detemir [Levemir] 26 unit SUBCUT BEDTIME #1 pen 09/04/17 [Rx] Insuln Asp Prot/Insulin Aspart [NovoLOG Mix 70-30] 10 unit SUBCUT BIDMEALS #1 pen 09/04/17 [Rx] Magnesium Oxide 400 mg PO BID #60 tablet 09/04/17 [Rx] Nicotine [Habitrol] 21 mg TRDERM DAILY #30 patch 09/04/17 [Rx] Remove Patch 1 ea TRDERM DAILY each 09/04/17 [Rx] Patient Handouts: Nausea, Adult, Insulin Aspart; Insulin Aspart Protamine injection, Insulin Aspart injection, Ceftriaxone injection, Pantoprazole injection, Famotidine injection, Nausea and Vomiting, Adult, Insulin Detemir injection, Metronidazole injection Forms: ED Department Discharge Referrals: Lita Daigle PA-C [Primary Care Provider] - - Discharge Summary/Plan Comment DC Time >30 min.: Yes (Coordination of care ) Discharge Summary/Plan Comment: As above. Extensive precautions were given to the patient, who is in agreement with the treatment plan. See Patient Instructions for further treatment and plan. - General Info Date of Service: 09/04/17 Admission Dx/Problem (Free Text: 1. Abdominal pain 2. Dehydration 3. IDDM Functional Status: Reports: Pain Controlled, Tolerating Diet, Ambulating, Urinating. Denies: New Symptoms, Incentive Spirometry Numeric/FACES Score: 0 - Review of Systems General: Reports: Fever (Maximum fever of 37.4 during the last 24 hours), Appetite (Much improved). Denies: Weakness, Fatigue, Malaise, Chills, Night Sweats HEENT: Reports: No Symptoms. Denies: Dysphasia, Ear Pain, Eye Pain, Headaches, Post Nasal Drip, Sinus Congestion, Sore Throat, Rhinitis, Visual Changes Pulmonary: Reports: No Symptoms. Denies: Shortness of Breath, Pleuritic Chest Pain, Cough, Sputum, Wheezing Cardiovascular: Reports: No Symptoms. Denies: Chest Pain, Palpitations, Dyspnea on Exertion, Orthopnea, PND, Edema, Lightheadedness Gastrointestinal: Reports: Nausea (Borderline occasional but much improved). Denies: Abdominal Pain, Constipation, Decreased Appetite, Diarrhea (Somewhat loose stools as above), Difficulty Swallowing, Flatus, Hematochezia, Melena, Vomiting Genitourinary: Reports: No Symptoms. Denies: Dysuria, Frequency, Burning, Urgency, Incontinence, Hematuria, Retention, Flank Pain Musculoskeletal: Reports: No Symptoms. Denies: Neck Pain, Shoulder Pain, Arm Pain, Back Pain, Leg Pain Skin: Reports: No Symptoms. Denies: Jaundice, Pallor, Diaphoresis, Bruising, Pruritis, Rash Neurological: Reports: No Symptoms. Denies: Confusion, Dizziness, Headache, Numbness, Paresthesia, Tingling, Weakness Psychiatric: Reports: No Symptoms. Denies: Confusion, Depression, Anxiety, Agitation, Cravings, Hallucinations, Suicidal Ideation, Homicidal Ideation - Patient Data Vitals - Most Recent: Last Vital Signs Temp 37.2 C 09/04/17 06:00 Pulse 84 09/04/17 06:00 Resp 12 09/04/17 06:00 BP 152/77 H 09/04/17 06:00 Pulse Ox 98 09/04/17 06:00 Vital Signs - 24 hr 09/03/17 09/03/17 09/03/17 12:00 16:17 18:00 Temperature [ 37.1 C 37.4 C Temporal] Pulse, 93 98 Peripheral [ Right Pulse Oximetry] Respiratory 15 Rate Blood Pressure 105/48 L Blood Pressure 150/71 H 144/76 H [Right Upper Arm] O2 Sat by Pulse 98 99 Oximetry 09/04/17 09/04/17 00:00 06:00 Temperature [ 37.2 C 37.2 C Temporal] Pulse, 82 84 Peripheral [ Right Pulse Oximetry] Respiratory 12 12 Rate Blood Pressure Blood Pressure 113/66 152/77 H [Right Upper Arm] O2 Sat by Pulse 98 98 Oximetry Weight - Most Recent: 70.125 kg I&O - Last 24 hours: Intake & Output 09/03/17 09/04/17 09/04/17 22:59 06:59 14:59 Intake Total 1280 1341 640 Output Total 1200 450 Balance 80 891 640 Imaging Impressions - Last 24 hrs: Acute abdominal x-rays on 09/03/17 shows evidence of mild increased nonspecific diffuse bowel gaseous pattern with only very occasional fluid levels and no evidence of significant ileus, obstruction, free air, etc.. Additional mild pulmonary obstructive disease with no cardiac megaly, CHF, pulmonary infiltrates , etc. Note significantly decreased stool burden from previous evaluation on admission Lab Results - Last 24 hrs: Laboratory Results - last 24 hr 09/03/17 09/03/17 09/03/17 Range/Units 11:44 16:54 18:18 WBC (4.0-10.2) K/uL RBC (3.77-5.09) M/uL Hgb (11.7-15.5) g/dL Hct (34.0-46.0) % MCV (84.0-98.0) fL MCH (28.2-33.3) pg MCHC (31.7-36.0) g/dL RDW (11.2-14.1) % Plt Count (150-350) K/uL Neut % (Auto) (45.0-80.0) % Lymph % (Auto) (10.0-50.0) % [place] % (Auto) (2.0-14.0) % Eos % (Auto) (0.0-5.0) % Baso % (Auto) (0.0-2.0) % Neut # (Auto) (1.40-7.00) K/uL Lymph # (Auto) (0.50-3.50) K/uL [place] # (Auto) (0.00-1.00) K/uL Eos # (Auto) (0.00-0.50) K/uL Baso # (Auto) (0.00-0.20) K/uL Sodium (136-145) mmol/L Potassium (3.5-5.1) mmol/L Chloride (98-107) mmol/L Carbon Dioxide (21.0-32.0) mmol/L BUN (7-18) mg/dL Creatinine (0.51-1.17) mg/dL Est Cr Clr Drug Dosing mL/min Estimated GFR (MDRD) mL/min Glucose (74-106) mg/dL POC Glucose 231 H 232 H (65-110) mg/dl Calcium (8.5-10.1) mg/dL Magnesium (1.8-2.4) mg/dL Urine Acetone Large H (NEGATIVE) Ketones 09/03/17 09/04/17 09/04/17 Range/Units 20:38 02:30 07:00 WBC 7.4 (4.0-10.2) K/uL RBC 3.72 L (3.77-5.09) M/uL Hgb 11.2 L (11.7-15.5) g/dL Hct 33.2 L (34.0-46.0) % MCV 89.2 (84.0-98.0) fL MCH 30.1 (28.2-33.3) pg MCHC 33.7 (31.7-36.0) g/dL RDW 13.0 (11.2-14.1) % Plt Count 269 (150-350) K/uL Neut % (Auto) 56.8 (45.0-80.0) % Lymph % (Auto) 29.7 (10.0-50.0) % [place] % (Auto) 10.7 (2.0-14.0) % Eos % (Auto) 2.3 (0.0-5.0) % Baso % (Auto) 0.5 (0.0-2.0) % Neut # (Auto) 4.19 (1.40-7.00) K/uL Lymph # (Auto) 2.19 (0.50-3.50) K/uL [place] # (Auto) 0.79 (0.00-1.00) K/uL Eos # (Auto) 0.17 (0.00-0.50) K/uL Baso # (Auto) 0.04 (0.00-0.20) K/uL Sodium (136-145) mmol/L Potassium (3.5-5.1) mmol/L Chloride (98-107) mmol/L Carbon Dioxide (21.0-32.0) mmol/L BUN (7-18) mg/dL Creatinine (0.51-1.17) mg/dL Est Cr Clr Drug Dosing mL/min Estimated GFR (MDRD) mL/min Glucose (74-106) mg/dL POC Glucose 210 H 137 H (65-110) mg/dl Calcium (8.5-10.1) mg/dL Magnesium (1.8-2.4) mg/dL Urine Acetone (NEGATIVE) Ketones 09/04/17 09/04/17 09/04/17 Range/Units 07:00 07:00 07:13 WBC (4.0-10.2) K/uL RBC (3.77-5.09) M/uL Hgb (11.7-15.5) g/dL Hct (34.0-46.0) % MCV (84.0-98.0) fL MCH (28.2-33.3) pg MCHC (31.7-36.0) g/dL RDW (11.2-14.1) % Plt Count (150-350) K/uL Neut % (Auto) (45.0-80.0) % Lymph % (Auto) (10.0-50.0) % [place] % (Auto) (2.0-14.0) % Eos % (Auto) (0.0-5.0) % Baso % (Auto) (0.0-2.0) % Neut # (Auto) (1.40-7.00) K/uL Lymph # (Auto) (0.50-3.50) K/uL [place] # (Auto) (0.00-1.00) K/uL Eos # (Auto) (0.00-0.50) K/uL Baso # (Auto) (0.00-0.20) K/uL Sodium 139 (136-145) mmol/L Potassium 3.4 L (3.5-5.1) mmol/L Chloride 101 (98-107) mmol/L Carbon Dioxide 32.7 H (21.0-32.0) mmol/L BUN 6 L (7-18) mg/dL Creatinine 0.51 (0.51-1.17) mg/dL Est Cr Clr Drug Dosing 140.48 mL/min Estimated GFR (MDRD) > 60 mL/min Glucose 90 (74-106) mg/dL POC Glucose 94 (65-110) mg/dl Calcium 8.8 (8.5-10.1) mg/dL Magnesium 1.7 L (1.8-2.4) mg/dL Urine Acetone (NEGATIVE) Ketones Positive Laboratory Tests 09/01/17 09/01/17 09/01/17 Range/Units 03:50 03:50 03:50 WBC 7.3 (4.0-10.2) K/uL RBC 3.72 L (3.77-5.09) M/uL Hgb 11.3 L (11.7-15.5) g/dL Hct 33.6 L (34.0-46.0) % MCV 90.3 (84.0-98.0) fL MCH 30.4 (28.2-33.3) pg MCHC 33.6 (31.7-36.0) g/dL RDW 13.3 (11.2-14.1) % Plt Count 241 (150-350) K/uL Neut % (Auto) 78.7 (45.0-80.0) % Lymph % (Auto) 13.0 (10.0-50.0) % [place] % (Auto) 4.5 (2.0-14.0) % Eos % (Auto) 3.0 (0.0-5.0) % Baso % (Auto) 0.8 (0.0-2.0) % Neut # (Auto) 5.72 (1.40-7.00) K/uL Lymph # (Auto) 0.95 (0.50-3.50) K/uL [place] # (Auto) 0.33 (0.00-1.00) K/uL Eos # (Auto) 0.22 (0.00-0.50) K/uL Baso # (Auto) 0.06 (0.00-0.20) K/uL PT 10.8 (9.8-11.7) SEC INR 1.0 APTT 23.7 (22.1-29.8) SEC Sodium (136-145) mmol/L Potassium (3.5-5.1) mmol/L Chloride (98-107) mmol/L Carbon Dioxide (21.0-32.0) mmol/L BUN (7-18) mg/dL Creatinine (0.51-1.17) mg/dL Est Cr Clr Drug Dosing mL/min Estimated GFR (MDRD) mL/min Glucose (74-106) mg/dL POC Glucose (65-110) mg/dl Hemoglobin A1c (4.3-5.7) % Lactic Acid (0.4-2.0) mmol/L Uric Acid (2.6-7.2) mg/dL Calcium (8.5-10.1) mg/dL Phosphorus (2.6-4.7) mg/dL Magnesium (1.8-2.4) mg/dL Iron (50-175) ug/dL TIBC (250-450) ug/dL % Saturation Ferritin (8-388) ng/mL Total Bilirubin (0.2-1.0) mg/dL AST (15-37) U/L ALT (12-78) U/L Alkaline Phosphatase (46-116) IU/L Total Protein (6.4-8.2) g/dL Albumin (3.4-5.0) g/dL Amylase 20 L (25-115) U/L Lipase (73-393) U/L Vitamin B12 (193-986) pg/mL Specimen Type Urine Color Urine Appearance Urine pH (5.0-9.0) Ur Specific Barton (1.005-1.030) Urine Protein (NEGATIVE) mg/dL Urine Glucose (UA) (NEGATIVE) mg/dL Urine Ketones (NEGATIVE) mg/dL Urine Occult Blood (NEGATIVE) Urine Nitrite (NEGATIVE) Urine Bilirubin (NEGATIVE) Urine Acetone (NEGATIVE) Urine Urobilinogen (0.2-1.0) E.U./dL Ur Leukocyte Esterase (NEGATIVE) Urine RBC /HPF Urine WBC /HPF Ur Epithelial Cells /LPF Urine Bacteria (NONE TO FEW) /HPF Urine Opiates Screen (NEGATIVE) Urine Methadone Screen U Acetaminophen Screen Ur Barbiturates Screen (NEGATIVE) Ur Tricyclics Screen (NEGATIVE) Ur Phencyclidine Scrn (NEGATIVE) Ur Amphetamine Screen (NEGATIVE) U Methamphetamines Scrn (NEGATIVE) U Benzodiazepines Scrn (NEGATIVE) U Cocaine Metab Screen (NEGATIVE) U Marijuana (THC) Screen (NEGATIVE) Ketones 09/01/17 09/01/17 09/01/17 Range/Units 03:50 03:50 03:50 WBC (4.0-10.2) K/uL RBC (3.77-5.09) M/uL Hgb (11.7-15.5) g/dL Hct (34.0-46.0) % MCV (84.0-98.0) fL MCH (28.2-33.3) pg MCHC (31.7-36.0) g/dL RDW (11.2-14.1) % Plt Count (150-350) K/uL Neut % (Auto) (45.0-80.0) % Lymph % (Auto) (10.0-50.0) % [place] % (Auto) (2.0-14.0) % Eos % (Auto) (0.0-5.0) % Baso % (Auto) (0.0-2.0) % Neut # (Auto) (1.40-7.00) K/uL Lymph # (Auto) (0.50-3.50) K/uL [place] # (Auto) (0.00-1.00) K/uL Eos # (Auto) (0.00-0.50) K/uL Baso # (Auto) (0.00-0.20) K/uL PT (9.8-11.7) SEC INR APTT (22.1-29.8) SEC Sodium 134 L (136-145) mmol/L Potassium 4.4 (3.5-5.1) mmol/L Chloride 98 (98-107) mmol/L Carbon Dioxide 28.7 (21.0-32.0) mmol/L BUN 22 H (7-18) mg/dL Creatinine 0.66 (0.51-1.17) mg/dL Est Cr Clr Drug Dosing 112.72 mL/min Estimated GFR (MDRD) > 60 mL/min Glucose 293 H* (74-106) mg/dL POC Glucose (65-110) mg/dl Hemoglobin A1c (4.3-5.7) % Lactic Acid 0.8 (0.4-2.0) mmol/L Uric Acid 3.9 (2.6-7.2) mg/dL Calcium 9.0 (8.5-10.1) mg/dL Phosphorus (2.6-4.7) mg/dL Magnesium 1.5 L (1.8-2.4) mg/dL Iron (50-175) ug/dL TIBC (250-450) ug/dL % Saturation Ferritin (8-388) ng/mL Total Bilirubin 0.4 (0.2-1.0) mg/dL AST 21 (15-37) U/L ALT 22 (12-78) U/L Alkaline Phosphatase 95 (46-116) IU/L Total Protein 7.3 (6.4-8.2) g/dL Albumin 3.6 (3.4-5.0) g/dL Amylase (25-115) U/L Lipase 87 (73-393) U/L Vitamin B12 (193-986) pg/mL Specimen Type Urine Color Urine Appearance Urine pH (5.0-9.0) Ur Specific Barton (1.005-1.030) Urine Protein (NEGATIVE) mg/dL Urine Glucose (UA) (NEGATIVE) mg/dL Urine Ketones (NEGATIVE) mg/dL Urine Occult Blood (NEGATIVE) Urine Nitrite (NEGATIVE) Urine Bilirubin (NEGATIVE) Urine Acetone (NEGATIVE) Urine Urobilinogen (0.2-1.0) E.U./dL Ur Leukocyte Esterase (NEGATIVE) Urine RBC /HPF Urine WBC /HPF Ur Epithelial Cells /LPF Urine Bacteria (NONE TO FEW) /HPF Urine Opiates Screen (NEGATIVE) Urine Methadone Screen U Acetaminophen Screen Ur Barbiturates Screen (NEGATIVE) Ur Tricyclics Screen (NEGATIVE) Ur Phencyclidine Scrn (NEGATIVE) Ur Amphetamine Screen (NEGATIVE) U Methamphetamines Scrn (NEGATIVE) U Benzodiazepines Scrn (NEGATIVE) U Cocaine Metab Screen (NEGATIVE) U Marijuana (THC) Screen (NEGATIVE) Ketones Positive 09/01/17 09/01/17 09/01/17 Range/Units 09:32 09:32 09:33 WBC (4.0-10.2) K/uL RBC (3.77-5.09) M/uL Hgb (11.7-15.5) g/dL Hct (34.0-46.0) % MCV (84.0-98.0) fL MCH (28.2-33.3) pg MCHC (31.7-36.0) g/dL RDW (11.2-14.1) % Plt Count (150-350) K/uL Neut % (Auto) (45.0-80.0) % Lymph % (Auto) (10.0-50.0) % [place] % (Auto) (2.0-14.0) % Eos % (Auto) (0.0-5.0) % Baso % (Auto) (0.0-2.0) % Neut # (Auto) (1.40-7.00) K/uL Lymph # (Auto) (0.50-3.50) K/uL [place] # (Auto) (0.00-1.00) K/uL Eos # (Auto) (0.00-0.50) K/uL Baso # (Auto) (0.00-0.20) K/uL PT (9.8-11.7) SEC INR APTT (22.1-29.8) SEC Sodium (136-145) mmol/L Potassium (3.5-5.1) mmol/L Chloride (98-107) mmol/L Carbon Dioxide (21.0-32.0) mmol/L BUN (7-18) mg/dL Creatinine (0.51-1.17) mg/dL Est Cr Clr Drug Dosing mL/min Estimated GFR (MDRD) mL/min Glucose (74-106) mg/dL POC Glucose (65-110) mg/dl Hemoglobin A1c (4.3-5.7) % Lactic Acid (0.4-2.0) mmol/L Uric Acid (2.6-7.2) mg/dL Calcium (8.5-10.1) mg/dL Phosphorus (2.6-4.7) mg/dL Magnesium (1.8-2.4) mg/dL Iron (50-175) ug/dL TIBC (250-450) ug/dL % Saturation Ferritin (8-388) ng/mL Total Bilirubin (0.2-1.0) mg/dL AST (15-37) U/L ALT (12-78) U/L Alkaline Phosphatase (46-116) IU/L Total Protein (6.4-8.2) g/dL Albumin (3.4-5.0) g/dL Amylase (25-115) U/L Lipase (73-393) U/L Vitamin B12 (193-986) pg/mL Specimen Type Urincc Urine Color Yellow Urine Appearance Clear Urine pH 5.5 (5.0-9.0) Ur Specific Barton 1.020 (1.005-1.030) Urine Protein 100 H (NEGATIVE) mg/dL Urine Glucose (UA) 500 H (NEGATIVE) mg/dL Urine Ketones >=160 H (NEGATIVE) mg/dL Urine Occult Blood Trace-lysed H (NEGATIVE) Urine Nitrite Negative (NEGATIVE) Urine Bilirubin Negative (NEGATIVE) Urine Acetone Large H (NEGATIVE) Urine Urobilinogen 0.2 (0.2-1.0) E.U./dL Ur Leukocyte Esterase Negative (NEGATIVE) Urine RBC 0-5 /HPF Urine WBC 0-5 /HPF Ur Epithelial Cells Many H /LPF Urine Bacteria Few (NONE TO FEW) /HPF Urine Opiates Screen Negative (NEGATIVE) Urine Methadone Screen TNP U Acetaminophen Screen TNP Ur Barbiturates Screen Negative (NEGATIVE) Ur Tricyclics Screen Negative (NEGATIVE) Ur Phencyclidine Scrn Negative (NEGATIVE) Ur Amphetamine Screen Negative (NEGATIVE) U Methamphetamines Scrn Negative (NEGATIVE) U Benzodiazepines Scrn Negative (NEGATIVE) U Cocaine Metab Screen Negative (NEGATIVE) U Marijuana (THC) Screen Positive H (NEGATIVE) Ketones 09/01/17 09/01/17 09/01/17 Range/Units 11:37 17:01 23:02 WBC (4.0-10.2) K/uL RBC (3.77-5.09) M/uL Hgb (11.7-15.5) g/dL Hct (34.0-46.0) % MCV (84.0-98.0) fL MCH (28.2-33.3) pg MCHC (31.7-36.0) g/dL RDW (11.2-14.1) % Plt Count (150-350) K/uL Neut % (Auto) (45.0-80.0) % Lymph % (Auto) (10.0-50.0) % [place] % (Auto) (2.0-14.0) % Eos % (Auto) (0.0-5.0) % Baso % (Auto) (0.0-2.0) % Neut # (Auto) (1.40-7.00) K/uL Lymph # (Auto) (0.50-3.50) K/uL [place] # (Auto) (0.00-1.00) K/uL Eos # (Auto) (0.00-0.50) K/uL Baso # (Auto) (0.00-0.20) K/uL PT (9.8-11.7) SEC INR APTT (22.1-29.8) SEC Sodium (136-145) mmol/L Potassium (3.5-5.1) mmol/L Chloride (98-107) mmol/L Carbon Dioxide (21.0-32.0) mmol/L BUN (7-18) mg/dL Creatinine (0.51-1.17) mg/dL Est Cr Clr Drug Dosing mL/min Estimated GFR (MDRD) mL/min Glucose (74-106) mg/dL POC Glucose 304 H* 193 H 321 H* (65-110) mg/dl Hemoglobin A1c (4.3-5.7) % Lactic Acid (0.4-2.0) mmol/L Uric Acid (2.6-7.2) mg/dL Calcium (8.5-10.1) mg/dL Phosphorus (2.6-4.7) mg/dL Magnesium (1.8-2.4) mg/dL Iron (50-175) ug/dL TIBC (250-450) ug/dL % Saturation Ferritin (8-388) ng/mL Total Bilirubin (0.2-1.0) mg/dL AST (15-37) U/L ALT (12-78) U/L Alkaline Phosphatase (46-116) IU/L Total Protein (6.4-8.2) g/dL Albumin (3.4-5.0) g/dL Amylase (25-115) U/L Lipase (73-393) U/L Vitamin B12 (193-986) pg/mL Specimen Type Urine Color Urine Appearance Urine pH (5.0-9.0) Ur Specific [place] (1.005-1.030) Urine Protein (NEGATIVE) mg/dL Urine Glucose (UA) (NEGATIVE) mg/dL Urine Ketones (NEGATIVE) mg/dL Urine Occult Blood (NEGATIVE) Urine Nitrite (NEGATIVE) Urine Bilirubin (NEGATIVE) Urine Acetone (NEGATIVE) Urine Urobilinogen (0.2-1.0) E.U./dL Ur Leukocyte Esterase (NEGATIVE) Urine RBC /HPF Urine WBC /HPF Ur Epithelial Cells /LPF Urine Bacteria (NONE TO FEW) /HPF Urine Opiates Screen (NEGATIVE) Urine Methadone Screen U Acetaminophen Screen Ur Barbiturates Screen (NEGATIVE) Ur Tricyclics Screen (NEGATIVE) Ur Phencyclidine Scrn (NEGATIVE) Ur Amphetamine Screen (NEGATIVE) U Methamphetamines Scrn (NEGATIVE) U Benzodiazepines Scrn (NEGATIVE) U Cocaine Metab Screen (NEGATIVE) U Marijuana (THC) Screen (NEGATIVE) Ketones 09/02/17 09/02/17 09/02/17 Range/Units 04:25 07:20 07:20 WBC 8.5 (4.0-10.2) K/uL RBC 3.65 L (3.77-5.09) M/uL Hgb 11.2 L (11.7-15.5) g/dL Hct 33.3 L (34.0-46.0) % MCV 91.2 (84.0-98.0) fL MCH 30.7 (28.2-33.3) pg MCHC 33.6 (31.7-36.0) g/dL RDW 13.1 (11.2-14.1) % Plt Count 256 (150-350) K/uL Neut % (Auto) 79.3 (45.0-80.0) % Lymph % (Auto) 13.4 (10.0-50.0) % [place] % (Auto) 6.6 (2.0-14.0) % Eos % (Auto) 0.2 (0.0-5.0) % Baso % (Auto) 0.5 (0.0-2.0) % Neut # (Auto) 6.72 (1.40-7.00) K/uL Lymph # (Auto) 1.14 (0.50-3.50) K/uL [place] # (Auto) 0.56 (0.00-1.00) K/uL Eos # (Auto) 0.02 (0.00-0.50) K/uL Baso # (Auto) 0.04 (0.00-0.20) K/uL PT (9.8-11.7) SEC INR APTT (22.1-29.8) SEC Sodium 132 L (136-145) mmol/L Potassium 4.3 (3.5-5.1) mmol/L Chloride 97 L (98-107) mmol/L Carbon Dioxide 20.4 L (21.0-32.0) mmol/L BUN 17 (7-18) mg/dL Creatinine 0.65 (0.51-1.17) mg/dL Est Cr Clr Drug Dosing 110.62 mL/min Estimated GFR (MDRD) > 60 mL/min Glucose 221 H (74-106) mg/dL POC Glucose 271 H* (65-110) mg/dl Hemoglobin A1c (4.3-5.7) % Lactic Acid (0.4-2.0) mmol/L Uric Acid (2.6-7.2) mg/dL Calcium 8.5 (8.5-10.1) mg/dL Phosphorus (2.6-4.7) mg/dL Magnesium 1.4 L (1.8-2.4) mg/dL Iron (50-175) ug/dL TIBC (250-450) ug/dL % Saturation Ferritin (8-388) ng/mL Total Bilirubin 0.4 (0.2-1.0) mg/dL AST 17 (15-37) U/L ALT 18 (12-78) U/L Alkaline Phosphatase 86 (46-116) IU/L Total Protein 6.5 (6.4-8.2) g/dL Albumin 3.2 L (3.4-5.0) g/dL Amylase 12 L (25-115) U/L Lipase 49 L (73-393) U/L Vitamin B12 926 (193-986) pg/mL Specimen Type Urine Color Urine Appearance Urine pH (5.0-9.0) Ur Specific [place] (1.005-1.030) Urine Protein (NEGATIVE) mg/dL Urine Glucose (UA) (NEGATIVE) mg/dL Urine Ketones (NEGATIVE) mg/dL Urine Occult Blood (NEGATIVE) Urine Nitrite (NEGATIVE) Urine Bilirubin (NEGATIVE) Urine Acetone (NEGATIVE) Urine Urobilinogen (0.2-1.0) E.U./dL Ur Leukocyte Esterase (NEGATIVE) Urine RBC /HPF Urine WBC /HPF Ur Epithelial Cells /LPF Urine Bacteria (NONE TO FEW) /HPF Urine Opiates Screen (NEGATIVE) Urine Methadone Screen U Acetaminophen Screen Ur Barbiturates Screen (NEGATIVE) Ur Tricyclics Screen (NEGATIVE) Ur Phencyclidine Scrn (NEGATIVE) Ur Amphetamine Screen (NEGATIVE) U Methamphetamines Scrn (NEGATIVE) U Benzodiazepines Scrn (NEGATIVE) U Cocaine Metab Screen (NEGATIVE) U Marijuana (THC) Screen (NEGATIVE) Ketones 09/02/17 09/02/17 09/02/17 Range/Units 07:20 11:02 16:57 WBC (4.0-10.2) K/uL RBC (3.77-5.09) M/uL Hgb (11.7-15.5) g/dL Hct (34.0-46.0) % MCV (84.0-98.0) fL MCH (28.2-33.3) pg MCHC (31.7-36.0) g/dL RDW (11.2-14.1) % Plt Count (150-350) K/uL Neut % (Auto) (45.0-80.0) % Lymph % (Auto) (10.0-50.0) % [place] % (Auto) (2.0-14.0) % Eos % (Auto) (0.0-5.0) % Baso % (Auto) (0.0-2.0) % Neut # (Auto) (1.40-7.00) K/uL Lymph # (Auto) (0.50-3.50) K/uL [place] # (Auto) (0.00-1.00) K/uL Eos # (Auto) (0.00-0.50) K/uL Baso # (Auto) (0.00-0.20) K/uL PT (9.8-11.7) SEC INR APTT (22.1-29.8) SEC Sodium (136-145) mmol/L Potassium (3.5-5.1) mmol/L Chloride (98-107) mmol/L Carbon Dioxide (21.0-32.0) mmol/L BUN (7-18) mg/dL Creatinine (0.51-1.17) mg/dL Est Cr Clr Drug Dosing mL/min Estimated GFR (MDRD) mL/min Glucose (74-106) mg/dL POC Glucose 297 H* 331 H* (65-110) mg/dl Hemoglobin A1c (4.3-5.7) % Lactic Acid (0.4-2.0) mmol/L Uric Acid (2.6-7.2) mg/dL Calcium (8.5-10.1) mg/dL Phosphorus (2.6-4.7) mg/dL Magnesium (1.8-2.4) mg/dL Iron 129 (50-175) ug/dL TIBC 202 L (250-450) ug/dL % Saturation [id number] Ferritin 191 (8-388) ng/mL Total Bilirubin (0.2-1.0) mg/dL AST (15-37) U/L ALT (12-78) U/L Alkaline Phosphatase (46-116) IU/L Total Protein (6.4-8.2) g/dL Albumin (3.4-5.0) g/dL Amylase (25-115) U/L Lipase (73-393) U/L Vitamin B12 (193-986) pg/mL Specimen Type Urine Color Urine Appearance Urine pH (5.0-9.0) Ur Specific [place] (1.005-1.030) Urine Protein (NEGATIVE) mg/dL Urine Glucose (UA) (NEGATIVE) mg/dL Urine Ketones (NEGATIVE) mg/dL Urine Occult Blood (NEGATIVE) Urine Nitrite (NEGATIVE) Urine Bilirubin (NEGATIVE) Urine Acetone (NEGATIVE) Urine Urobilinogen (0.2-1.0) E.U./dL Ur Leukocyte Esterase (NEGATIVE) Urine RBC /HPF Urine WBC /HPF Ur Epithelial Cells /LPF Urine Bacteria (NONE TO FEW) /HPF Urine Opiates Screen (NEGATIVE) Urine Methadone Screen U Acetaminophen Screen Ur Barbiturates Screen (NEGATIVE) Ur Tricyclics Screen (NEGATIVE) Ur Phencyclidine Scrn (NEGATIVE) Ur Amphetamine Screen (NEGATIVE) U Methamphetamines Scrn (NEGATIVE) U Benzodiazepines Scrn (NEGATIVE) U Cocaine Metab Screen (NEGATIVE) U Marijuana (THC) Screen (NEGATIVE) Ketones 09/02/17 09/03/17 09/03/17 Range/Units 21:22 00:12 03:19 WBC (4.0-10.2) K/uL RBC (3.77-5.09) M/uL Hgb (11.7-15.5) g/dL Hct (34.0-46.0) % MCV (84.0-98.0) fL MCH (28.2-33.3) pg MCHC (31.7-36.0) g/dL RDW (11.2-14.1) % Plt Count (150-350) K/uL Neut % (Auto) (45.0-80.0) % Lymph % (Auto) (10.0-50.0) % [place] % (Auto) (2.0-14.0) % Eos % (Auto) (0.0-5.0) % Baso % (Auto) (0.0-2.0) % Neut # (Auto) (1.40-7.00) K/uL Lymph # (Auto) (0.50-3.50) K/uL [place] # (Auto) (0.00-1.00) K/uL Eos # (Auto) (0.00-0.50) K/uL Baso # (Auto) (0.00-0.20) K/uL PT (9.8-11.7) SEC INR APTT (22.1-29.8) SEC Sodium (136-145) mmol/L Potassium (3.5-5.1) mmol/L Chloride (98-107) mmol/L Carbon Dioxide (21.0-32.0) mmol/L BUN (7-18) mg/dL Creatinine (0.51-1.17) mg/dL Est Cr Clr Drug Dosing mL/min Estimated GFR (MDRD) mL/min Glucose (74-106) mg/dL POC Glucose 409 H* 248 H 180 H (65-110) mg/dl Hemoglobin A1c (4.3-5.7) % Lactic Acid (0.4-2.0) mmol/L Uric Acid (2.6-7.2) mg/dL Calcium (8.5-10.1) mg/dL Phosphorus (2.6-4.7) mg/dL Magnesium (1.8-2.4) mg/dL Iron (50-175) ug/dL TIBC (250-450) ug/dL % Saturation Ferritin (8-388) ng/mL Total Bilirubin (0.2-1.0) mg/dL AST (15-37) U/L ALT (12-78) U/L Alkaline Phosphatase (46-116) IU/L Total Protein (6.4-8.2) g/dL Albumin (3.4-5.0) g/dL Amylase (25-115) U/L Lipase (73-393) U/L Vitamin B12 (193-986) pg/mL Specimen Type Urine Color Urine Appearance Urine pH (5.0-9.0) Ur Specific [place] (1.005-1.030) Urine Protein (NEGATIVE) mg/dL Urine Glucose (UA) (NEGATIVE) mg/dL Urine Ketones (NEGATIVE) mg/dL Urine Occult Blood (NEGATIVE) Urine Nitrite (NEGATIVE) Urine Bilirubin (NEGATIVE) Urine Acetone (NEGATIVE) Urine Urobilinogen (0.2-1.0) E.U./dL Ur Leukocyte Esterase (NEGATIVE) Urine RBC /HPF Urine WBC /HPF Ur Epithelial Cells /LPF Urine Bacteria (NONE TO FEW) /HPF Urine Opiates Screen (NEGATIVE) Urine Methadone Screen U Acetaminophen Screen Ur Barbiturates Screen (NEGATIVE) Ur Tricyclics Screen (NEGATIVE) Ur Phencyclidine Scrn (NEGATIVE) Ur Amphetamine Screen (NEGATIVE) U Methamphetamines Scrn (NEGATIVE) U Benzodiazepines Scrn (NEGATIVE) U Cocaine Metab Screen (NEGATIVE) U Marijuana (THC) Screen (NEGATIVE) Ketones 09/03/17 09/03/1709/03/18 Range/Units 07:35 07:35 07:35 WBC 7.1 (4.0-10.2) K/uL RBC 3.68 L (3.77-5.09) M/uL Hgb 11.0 L (11.7-15.5) g/dL Hct 32.8 L (34.0-46.0) % MCV 89.1 (84.0-98.0) fL MCH 29.9 (28.2-33.3) pg MCHC 33.5 (31.7-36.0) g/dL RDW 12.9 (11.2-14.1) % Plt Count 250 (150-350) K/uL Neut % (Auto) 64.8 (45.0-80.0) % Lymph % (Auto) 24.0 (10.0-50.0) % [place] % (Auto) 9.3 (2.0-14.0) % Eos % (Auto) 1.1 (0.0-5.0) % Baso % (Auto) 0.8 (0.0-2.0) % Neut # (Auto) 4.59 (1.40-7.00) K/uL Lymph # (Auto) 1.70 (0.50-3.50) K/uL [place] # (Auto) 0.66 (0.00-1.00) K/uL Eos # (Auto) 0.08 (0.00-0.50) K/uL Baso # (Auto) 0.06 (0.00-0.20) K/uL PT (9.8-11.7) SEC INR APTT (22.1-29.8) SEC Sodium 132 L (136-145) mmol/L Potassium 4.1 (3.5-5.1) mmol/L Chloride 98 (98-107) mmol/L Carbon Dioxide 26.4 (21.0-32.0) mmol/L BUN 13 (7-18) mg/dL Creatinine 0.57 (0.51-1.17) mg/dL Est Cr Clr Drug Dosing 125.69 mL/min Estimated GFR (MDRD) > 60 mL/min Glucose 133 H (74-106) mg/dL POC Glucose (65-110) mg/dl Hemoglobin A1c (4.3-5.7) % Lactic Acid 0.9 (0.4-2.0) mmol/L Uric Acid (2.6-7.2) mg/dL Calcium 8.7 (8.5-10.1) mg/dL Phosphorus 1.9 L (2.6-4.7) mg/dL Magnesium (1.8-2.4) mg/dL Iron (50-175) ug/dL TIBC (250-450) ug/dL % Saturation Ferritin (8-388) ng/mL Total Bilirubin (0.2-1.0) mg/dL AST (15-37) U/L ALT (12-78) U/L Alkaline Phosphatase (46-116) IU/L Total Protein (6.4-8.2) g/dL Albumin (3.4-5.0) g/dL Amylase (25-115) U/L Lipase (73-393) U/L Vitamin B12 (193-986) pg/mL Specimen Type Urine Color Urine Appearance Urine pH (5.0-9.0) Ur Specific [place] (1.005-1.030) Urine Protein (NEGATIVE) mg/dL Urine Glucose (UA) (NEGATIVE) mg/dL Urine Ketones (NEGATIVE) mg/dL Urine Occult Blood (NEGATIVE) Urine Nitrite (NEGATIVE) Urine Bilirubin (NEGATIVE) Urine Acetone (NEGATIVE) Urine Urobilinogen (0.2-1.0) E.U./dL Ur Leukocyte Esterase (NEGATIVE) Urine RBC /HPF Urine WBC /HPF Ur Epithelial Cells /LPF Urine Bacteria (NONE TO FEW) /HPF Urine Opiates Screen (NEGATIVE) Urine Methadone Screen U Acetaminophen Screen Ur Barbiturates Screen (NEGATIVE) Ur Tricyclics Screen (NEGATIVE) Ur Phencyclidine Scrn (NEGATIVE) Ur Amphetamine Screen (NEGATIVE) U Methamphetamines Scrn (NEGATIVE) U Benzodiazepines Scrn (NEGATIVE) U Cocaine Metab Screen (NEGATIVE) U Marijuana (THC) Screen (NEGATIVE) Ketones 09/03/17 09/03/17 09/03/17 Range/Units 07:35 07:35 07:50 WBC (4.0-10.2) K/uL RBC (3.77-5.09) M/uL Hgb (11.7-15.5) g/dL Hct (34.0-46.0) % MCV (84.0-98.0) fL MCH (28.2-33.3) pg MCHC (31.7-36.0) g/dL RDW (11.2-14.1) % Plt Count (150-350) K/uL Neut % (Auto) (45.0-80.0) % Lymph % (Auto) (10.0-50.0) % [place] % (Auto) (2.0-14.0) % Eos % (Auto) (0.0-5.0) % Baso % (Auto) (0.0-2.0) % Neut # (Auto) (1.40-7.00) K/uL Lymph # (Auto) (0.50-3.50) K/uL [place] # (Auto) (0.00-1.00) K/uL Eos # (Auto) (0.00-0.50) K/uL Baso # (Auto) (0.00-0.20) K/uL PT (9.8-11.7) SEC INR APTT (22.1-29.8) SEC Sodium (136-145) mmol/L Potassium (3.5-5.1) mmol/L Chloride (98-107) mmol/L Carbon Dioxide (21.0-32.0) mmol/L BUN (7-18) mg/dL Creatinine (0.51-1.17) mg/dL Est Cr Clr Drug Dosing mL/min Estimated GFR (MDRD) mL/min Glucose (74-106) mg/dL POC Glucose 119 H (65-110) mg/dl Hemoglobin A1c 11.6 H (4.3-5.7) % Lactic Acid (0.4-2.0) mmol/L Uric Acid (2.6-7.2) mg/dL Calcium (8.5-10.1) mg/dL Phosphorus (2.6-4.7) mg/dL Magnesium (1.8-2.4) mg/dL Iron (50-175) ug/dL TIBC (250-450) ug/dL % Saturation Ferritin (8-388) ng/mL Total Bilirubin (0.2-1.0) mg/dL AST (15-37) U/L ALT (12-78) U/L Alkaline Phosphatase (46-116) IU/L Total Protein (6.4-8.2) g/dL Albumin (3.4-5.0) g/dL Amylase (25-115) U/L Lipase (73-393) U/L Vitamin B12 (193-986) pg/mL Specimen Type Urine Color Urine Appearance Urine pH (5.0-9.0) Ur Specific [place] (1.005-1.030) Urine Protein (NEGATIVE) mg/dL Urine Glucose (UA) (NEGATIVE) mg/dL Urine Ketones (NEGATIVE) mg/dL Urine Occult Blood (NEGATIVE) Urine Nitrite (NEGATIVE) Urine Bilirubin (NEGATIVE) Urine Acetone (NEGATIVE) Urine Urobilinogen (0.2-1.0) E.U./dL Ur Leukocyte Esterase (NEGATIVE) Urine RBC /HPF Urine WBC /HPF Ur Epithelial Cells /LPF Urine Bacteria (NONE TO FEW) /HPF Urine Opiates Screen (NEGATIVE) Urine Methadone Screen U Acetaminophen Screen Ur Barbiturates Screen (NEGATIVE) Ur Tricyclics Screen (NEGATIVE) Ur Phencyclidine Scrn (NEGATIVE) Ur Amphetamine Screen (NEGATIVE) U Methamphetamines Scrn (NEGATIVE) U Benzodiazepines Scrn (NEGATIVE) U Cocaine Metab Screen (NEGATIVE) U Marijuana (THC) Screen (NEGATIVE) Ketones Positive 09/03/17 09/03/17 09/03/17 Range/Units 11:44 16:54 18:18 WBC (4.0-10.2) K/uL RBC (3.77-5.09) M/uL Hgb (11.7-15.5) g/dL Hct (34.0-46.0) % MCV (84.0-98.0) fL MCH (28.2-33.3) pg MCHC (31.7-36.0) g/dL RDW (11.2-14.1) % Plt Count (150-350) K/uL Neut % (Auto) (45.0-80.0) % Lymph % (Auto) (10.0-50.0) % [place] % (Auto) (2.0-14.0) % Eos % (Auto) (0.0-5.0) % Baso % (Auto) (0.0-2.0) % Neut # (Auto) (1.40-7.00) K/uL Lymph # (Auto) (0.50-3.50) K/uL [place] # (Auto) (0.00-1.00) K/uL Eos # (Auto) (0.00-0.50) K/uL Baso # (Auto) (0.00-0.20) K/uL PT (9.8-11.7) SEC INR APTT (22.1-29.8) SEC Sodium (136-145) mmol/L Potassium (3.5-5.1) mmol/L Chloride (98-107) mmol/L Carbon Dioxide (21.0-32.0) mmol/L BUN (7-18) mg/dL Creatinine (0.51-1.17) mg/dL Est Cr Clr Drug Dosing mL/min Estimated GFR (MDRD) mL/min Glucose (74-106) mg/dL POC Glucose 231 H 232 H (65-110) mg/dl Hemoglobin A1c (4.3-5.7) % Lactic Acid (0.4-2.0) mmol/L Uric Acid (2.6-7.2) mg/dL Calcium (8.5-10.1) mg/dL Phosphorus (2.6-4.7) mg/dL Magnesium (1.8-2.4) mg/dL Iron (50-175) ug/dL TIBC (250-450) ug/dL % Saturation Ferritin (8-388) ng/mL Total Bilirubin (0.2-1.0) mg/dL AST (15-37) U/L ALT (12-78) U/L Alkaline Phosphatase (46-116) IU/L Total Protein (6.4-8.2) g/dL Albumin (3.4-5.0) g/dL Amylase (25-115) U/L Lipase (73-393) U/L Vitamin B12 (193-986) pg/mL Specimen Type Urine Color Urine Appearance Urine pH (5.0-9.0) Ur Specific [place] (1.005-1.030) Urine Protein (NEGATIVE) mg/dL Urine Glucose (UA) (NEGATIVE) mg/dL Urine Ketones (NEGATIVE) mg/dL Urine Occult Blood (NEGATIVE) Urine Nitrite (NEGATIVE) Urine Bilirubin (NEGATIVE) Urine Acetone Large H (NEGATIVE) Urine Urobilinogen (0.2-1.0) E.U./dL Ur Leukocyte Esterase (NEGATIVE) Urine RBC /HPF Urine WBC /HPF Ur Epithelial Cells /LPF Urine Bacteria (NONE TO FEW) /HPF Urine Opiates Screen (NEGATIVE) Urine Methadone Screen U Acetaminophen Screen Ur Barbiturates Screen (NEGATIVE) Ur Tricyclics Screen (NEGATIVE) Ur Phencyclidine Scrn (NEGATIVE) Ur Amphetamine Screen (NEGATIVE) U Methamphetamines Scrn (NEGATIVE) U Benzodiazepines Scrn (NEGATIVE) U Cocaine Metab Screen (NEGATIVE) U Marijuana (THC) Screen (NEGATIVE) Ketones 09/03/17 09/04/17 09/04/17 Range/Units 20:38 02:30 07:00 WBC 7.4 (4.0-10.2) K/uL RBC 3.72 L (3.77-5.09) M/uL Hgb 11.2 L (11.7-15.5) g/dL Hct 33.2 L (34.0-46.0) % MCV 89.2 (84.0-98.0) fL MCH 30.1 (28.2-33.3) pg MCHC 33.7 (31.7-36.0) g/dL RDW 13.0 (11.2-14.1) % Plt Count 269 (150-350) K/uL Neut % (Auto) 56.8 (45.0-80.0) % Lymph % (Auto) 29.7 (10.0-50.0) % [place] % (Auto) 10.7 (2.0-14.0) % Eos % (Auto) 2.3 (0.0-5.0) % Baso % (Auto) 0.5 (0.0-2.0) % Neut # (Auto) 4.19 (1.40-7.00) K/uL Lymph # (Auto) 2.19 (0.50-3.50) K/uL [place] # (Auto) 0.79 (0.00-1.00) K/uL Eos # (Auto) 0.17 (0.00-0.50) K/uL Baso # (Auto) 0.04 (0.00-0.20) K/uL PT (9.8-11.7) SEC INR APTT (22.1-29.8) SEC Sodium (136-145) mmol/L Potassium (3.5-5.1) mmol/L Chloride (98-107) mmol/L Carbon Dioxide (21.0-32.0) mmol/L BUN (7-18) mg/dL Creatinine (0.51-1.17) mg/dL Est Cr Clr Drug Dosing mL/min Estimated GFR (MDRD) mL/min Glucose (74-106) mg/dL POC Glucose 210 H 137 H (65-110) mg/dl Hemoglobin A1c (4.3-5.7) % Lactic Acid (0.4-2.0) mmol/L Uric Acid (2.6-7.2) mg/dL Calcium (8.5-10.1) mg/dL Phosphorus (2.6-4.7) mg/dL Magnesium (1.8-2.4) mg/dL Iron (50-175) ug/dL TIBC (250-450) ug/dL % Saturation Ferritin (8-388) ng/mL Total Bilirubin (0.2-1.0) mg/dL AST (15-37) U/L ALT (12-78) U/L Alkaline Phosphatase (46-116) IU/L Total Protein (6.4-8.2) g/dL Albumin (3.4-5.0) g/dL Amylase (25-115) U/L Lipase (73-393) U/L Vitamin B12 (193-986) pg/mL Specimen Type Urine Color Urine Appearance Urine pH (5.0-9.0) Ur Specific Barton (1.005-1.030) Urine Protein (NEGATIVE) mg/dL Urine Glucose (UA) (NEGATIVE) mg/dL Urine Ketones (NEGATIVE) mg/dL Urine Occult Blood (NEGATIVE) Urine Nitrite (NEGATIVE) Urine Bilirubin (NEGATIVE) Urine Acetone (NEGATIVE) Urine Urobilinogen (0.2-1.0) E.U./dL Ur Leukocyte Esterase (NEGATIVE) Urine RBC /HPF Urine WBC /HPF Ur Epithelial Cells /LPF Urine Bacteria (NONE TO FEW) /HPF Urine Opiates Screen (NEGATIVE) Urine Methadone Screen U Acetaminophen Screen Ur Barbiturates Screen (NEGATIVE) Ur Tricyclics Screen (NEGATIVE) Ur Phencyclidine Scrn (NEGATIVE) Ur Amphetamine Screen (NEGATIVE) U Methamphetamines Scrn (NEGATIVE) U Benzodiazepines Scrn (NEGATIVE) U Cocaine Metab Screen (NEGATIVE) U Marijuana (THC) Screen (NEGATIVE) Ketones 04/03/18 04/03/18 04/03/18 Range/Units 07:00 07:00 07:13 WBC (4.0-10.2) K/uL RBC (3.77-5.09) M/uL Hgb (11.7-15.5) g/dL Hct (34.0-46.0) % MCV (84.0-98.0) fL MCH (28.2-33.3) pg MCHC (31.7-36.0) g/dL RDW (11.2-14.1) % Plt Count (150-350) K/uL Neut % (Auto) (45.0-80.0) % Lymph % (Auto) (10.0-50.0) % [place] % (Auto) (2.0-14.0) % Eos % (Auto) (0.0-5.0) % Baso % (Auto) (0.0-2.0) % Neut # (Auto) (1.40-7.00) K/uL Lymph # (Auto) (0.50-3.50) K/uL [place] # (Auto) (0.00-1.00) K/uL Eos # (Auto) (0.00-0.50) K/uL Baso # (Auto) (0.00-0.20) K/uL PT (9.8-11.7) SEC INR APTT (22.1-29.8) SEC Sodium 139 (136-145) mmol/L Potassium 3.4 L (3.5-5.1) mmol/L Chloride 101 (98-107) mmol/L Carbon Dioxide 32.7 H (21.0-32.0) mmol/L BUN 6 L (7-18) mg/dL Creatinine 0.51 (0.51-1.17) mg/dL Est Cr Clr Drug Dosing 140.48 mL/min Estimated GFR (MDRD) > 60 mL/min Glucose 90 (74-106) mg/dL POC Glucose 94 (65-110) mg/dl Hemoglobin A1c (4.3-5.7) % Lactic Acid (0.4-2.0) mmol/L Uric Acid (2.6-7.2) mg/dL Calcium 8.8 (8.5-10.1) mg/dL Phosphorus (2.6-4.7) mg/dL Magnesium 1.7 L (1.8-2.4) mg/dL Iron (50-175) ug/dL TIBC (250-450) ug/dL % Saturation Ferritin (8-388) ng/mL Total Bilirubin (0.2-1.0) mg/dL AST (15-37) U/L ALT (12-78) U/L Alkaline Phosphatase (46-116) IU/L Total Protein (6.4-8.2) g/dL Albumin (3.4-5.0) g/dL Amylase (25-115) U/L Lipase (73-393) U/L Vitamin B12 (193-986) pg/mL Specimen Type Urine Color Urine Appearance Urine pH (5.0-9.0) Ur Specific Barton (1.005-1.030) Urine Protein (NEGATIVE) mg/dL Urine Glucose (UA) (NEGATIVE) mg/dL Urine Ketones (NEGATIVE) mg/dL Urine Occult Blood (NEGATIVE) Urine Nitrite (NEGATIVE) Urine Bilirubin (NEGATIVE) Urine Acetone (NEGATIVE) Urine Urobilinogen (0.2-1.0) E.U./dL Ur Leukocyte Esterase (NEGATIVE) Urine RBC /HPF Urine WBC /HPF Ur Epithelial Cells /LPF Urine Bacteria (NONE TO FEW) /HPF Urine Opiates Screen (NEGATIVE) Urine Methadone Screen U Acetaminophen Screen Ur Barbiturates Screen (NEGATIVE) Ur Tricyclics Screen (NEGATIVE) Ur Phencyclidine Scrn (NEGATIVE) Ur Amphetamine Screen (NEGATIVE) U Methamphetamines Scrn (NEGATIVE) U Benzodiazepines Scrn (NEGATIVE) U Cocaine Metab Screen (NEGATIVE) U Marijuana (THC) Screen (NEGATIVE) Ketones Positive WARNER Results - Last 24 hrs: Microbiology 09/01/17 04:30 Aerobic Blood Culture - Preliminary Blood - Venous - Lab Draw NO GROWTH AFTER 3 DAYS Anaerobic Blood Culture - Preliminary NO GROWTH AFTER 3 DAYS 09/01/17 03:50 Aerobic Blood Culture - Preliminary Blood - Venous NO GROWTH AFTER 3 DAYS Anaerobic Blood Culture - Preliminary NO GROWTH AFTER 3 DAYS 09/02/17 10:27 Stool Occult Blood (WARNER) - Final Stool / Feces NEGATIVE OCCULT BLOOD Microbiology 09/01/17 04:30 Blood - Venous - Lab Draw Aerobic Blood Culture - Preliminary NO GROWTH AFTER 3 DAYS 09/01/17 04:30 Blood - Venous - Lab Draw Anaerobic Blood Culture - Preliminary NO GROWTH AFTER 3 DAYS 09/01/17 03:50 Blood - Venous Aerobic Blood Culture - Preliminary NO GROWTH AFTER 3 DAYS 09/01/17 03:50 Blood - Venous Anaerobic Blood Culture - Preliminary NO GROWTH AFTER 3 DAYS 09/02/17 10:27 Stool / Feces Stool Occult Blood (WARNER) - Final NEGATIVE OCCULT BLOOD 09/01/17 09:32 Urine, Clean Catch Urine Culture - Final MIXED MARY CARMEN SUGGESTIVE OF CONTAMINATION. 09/01/17 03:31 Stool / Feces Stool Occult Blood (WARNER) - Final NEGATIVE OCCULT BLOOD 09/01/17 04:15 Nasal, Left Influenza Type A Antigen Screen - Final NEGATIVE INFLUENZA A VIRUS AG 09/01/17 04:15 Nasal, Left Influenza Type B Antigen Screen - Final NEGATIVE INFLUENZA B VIRUS AG Med Orders - Current: Current Medications Acetaminophen (Tylenol) 650 mg PO Q4H PRN PRN Reason: Pain Last Admin: 09/04/17 06:27 Dose: 650 mg Atorvastatin Calcium (Lipitor) 20 mg PO DAILY@1500 [facility] Last Admin: 09/03/17 16:18 Dose: 20 mg Escitalopram Oxalate (Lexapro) 10 mg PO DAILY@15 [facility] Last Admin: 09/03/17 16:16 Dose: 10 mg Famotidine (Pepcid) 20 mg IVPUSH Q12H [facility] Last Admin: 09/04/17 07:22 Dose: 20 mg Ferrous Sulfate (Ferrous Sulfate) 325 mg PO DAILY@15 [facility] Last Admin: 09/03/17 16:18 Dose: 325 mg Ceftriaxone Sodium 1 gm/ (Sodium Chloride) 100 mls @ 200 mls/hr IV Q12H [facility] Last Admin: 09/04/17 03:41 Dose: 200 mls/hr Metronidazole 500 mg/ Premix 100 mls @ 100 mls/hr IV Q8H [facility] Last Admin: 09/04/17 02:31 Dose: 100 mls/hr Lactated Ringer's (Ringers, Lactated) 1,000 mls @ 150 mls/hr IV ASDIRECTED [facility] Last Admin: 09/04/17 06:28 Dose: 150 mls/hr Insulin Aspart (Novolog) 0 unit SUBCUT ACBED [facility]; Protocol Last Admin: 09/04/17 07:18 Dose: Not Given Insulin Aspart (Novolog Mix 70-30) 10 unit SUBCUT BIDMEALS [facility] Last Admin: 09/04/17 08:39 Dose: 10 unit Insulin Detemir (Levemir) 20 unit SUBCUT BEDTIME [facility] Last Admin: 09/03/17 20:38 Dose: 20 unit Lisinopril (Prinivil) 10 mg PO DAILY@15 [facility] Last Admin: 09/03/17 16:17 Dose: 10 mg Magnesium Oxide (Magnesium Oxide) 400 mg PO BID [facility] Last Admin: 09/04/17 07:22 Dose: 400 mg Metoclopramide HCl (Reglan) 10 mg PO BIDAC [facility] Last Admin: 09/04/17 07:27 Dose: 10 mg Miscellaneous Information (Remove Patch) 1 ea TRDERM DAILY [facility] Last Admin: 09/04/17 07:21 Dose: 1 ea Nicotine (Habitrol) 21 mg TRDERM DAILY [facility] Last Admin: 09/04/17 07:18 Dose: 21 mg Ondansetron HCl (Zofran) 4 mg IVPUSH Q6H PRN PRN Reason: Nausea/Vomiting Last Admin: 09/03/17 06:56 Dose: 4 mg Pantoprazole Sodium (Protonix Iv) 40 mg IVPUSH Q12H [facility] Last Admin: 09/04/17 07:20 Dose: 40 mg Promethazine HCl (Phenergan) 25 mg IM Q6H PRN PRN Reason: Nausea/Vomiting Last Admin: 09/03/17 03:28 Dose: 25 mg Sodium Chloride (Saline Flush) 10 ml FLUSH ASDIRECTED PRN PRN Reason: Keep Vein Open Last Admin: 09/04/17 07:22 Dose: 10 ml Sodium Chloride (Saline Flush) 10 ml FLUSH Q12HR [facility] Last Admin: 09/04/17 07:21 Dose: 10 ml Temazepam (Restoril) 15 mg PO DAILY@2000 PRN PRN Reason: Insomnia Discontinued Medications Acetaminophen (Tylenol) 650 mg PO Q4H PRN PRN Reason: Pain Famotidine (Pepcid) 40 mg IVPUSH ONETIME ONE Stop: 09/01/17 03:31 Last Admin: 09/01/17 03:51 Dose: 40 mg Lactated Ringer's (Ringers, Lactated) 1,000 mls @ 999 mls/hr IV .BOLUS ONE Stop: 09/01/17 04:30 Last Admin: 09/01/17 06:15 Dose: 999 mls/hr Ceftriaxone Sodium 1 gm/ (Sodium Chloride) 100 mls @ 200 mls/hr IV Q12H [facility] Metronidazole 500 mg/ Premix 100 mls @ 100 mls/hr IV Q8H [facility] Lactated Ringer's (Ringers, Lactated) 1,000 mls @ 150 mls/hr IV ASDIRECTED [facility] Last Admin: 09/03/17 07:54 Dose: 100 mls/hr Sodium Chloride (Normal Saline) 1,000 mls @ 999 mls/hr IV .BOLUS ONE Stop: 09/02/17 00:12 Last Admin: 09/02/17 00:18 Dose: 999 mls/hr Lactated Ringer's (Ringers, Lactated) 1,000 mls @ 999 mls/hr IV .BOLUS ONE Stop: 09/03/17 10:01 Last Admin: 09/03/17 09:10 Dose: 999 mls/hr Insulin Aspart (Novolog) 0 unit SUBCUT Q6H [facility]; Protocol Last Admin: 09/02/17 17:09 Dose: 10 units Insulin Aspart (Novolog) 0 unit SUBCUT ACBED [facility]; Protocol Insulin Aspart (Novolog) 0 unit SUBCUT ONETIME ONE; Protocol Stop: 09/02/17 22:31 Last Admin: 09/02/17 22:26 Dose: 12 unit Insulin Aspart (Novolog Mix 70-30) 6 unit SUBCUT BIDMEALS [facility] Last Admin: 09/03/17 09:50 Dose: 6 units Insulin Human Regular (Humulin R) 10 unit IV ONETIME ONE Stop: 09/02/17 21:35 Last Admin: 09/02/17 21:54 Dose: 10 unit Magnesium Citrate (Citrate Of Magnesia) 296 ml PO ONETIME ONE Stop: 09/01/17 23:25 Last Admin: 09/02/17 08:27 Dose: Not Given Magnesium Citrate (Citrate Of Magnesia) Confirm Administered Dose 296 ml .ROUTE .STK-MED ONE Stop: 09/02/17 07:50 Last Admin: 09/02/17 08:00 Dose: 296 ml Metoclopramide HCl (Reglan) 10 mg IVPUSH Q6H PRN PRN Reason: Nausea/Vomiting Last Admin: 09/02/17 05:09 Dose: 10 mg Ondansetron HCl (Zofran) 4 mg IVPUSH ONETIME ONE Stop: 09/01/17 03:31 Last Admin: 09/01/17 03:46 Dose: 4 mg Pantoprazole Sodium (Protonix Iv) 40 mg IVPUSH ONETIME ONE Stop: 09/01/17 03:31 Last Admin: 09/01/17 03:49 Dose: 40 mg Polyethylene Glycol (Miralax) 17 gm PO ONETIME ONE Stop: 09/02/17 17:37 Last Admin: 09/02/17 17:47 Dose: 17 gm - Exam Quality Assessment: Reports: DVT Prophylaxis. Denies: Supplemental Oxygen, Central Line/PICC, Urine Catheter, Skin Breakdown, Restraints General: Reports: Alert, Oriented, Cooperative, No Acute Distress HEENT: Reports: Pupils Equal, Pupils Reactive, EOMI, Mucous Membr. Moist/[place] Neck: Reports: Supple, Trachea Midline, No JVD, No Thyromegaly, +2 Carotid Pulse wo Bruit. Denies: Lymphadenopathy Lungs: Reports: Clear to Auscultation, Normal Respiratory Effort. Denies: Rhonchi, Rub, Wheezing Cardiovascular: Reports: Regular Rate, Regular Rhythm, No Murmurs. Denies: Gallops, Rubs GI/Abdominal Exam: Normal Bowel Sounds, Soft, Non-Tender, No Organomegaly, No Distention, No Abnormal Bruit, No Mass. No: Guarding (Female) Exam: Deferred Rectal (Female) Exam: Deferred Back Exam: Reports: Normal Inspection, Full Range of Motion. Denies: CVA Tenderness (L), CVA Tenderness (R), Muscle Spasm Extremities: Normal Inspection, Normal Range of Motion, Non-Tender, No Pedal Edema, Normal Capillary Refill. No: Paty's Sign Skin: Reports: Warm, Dry, Intact, Other (Multiple tattoos). Denies: Ecchymosis Neurological: Reports: No New Focal Deficit, Other (No clinical orthostasis) Psy/Mental Status: Reports: Alert, Normal Affect, Normal Mood. Denies: Agitated , Hallucinations, Withdrawal Symptoms
== END 2017-09-04 12:03 | disposition home or self-care (01) | DRG 249 ==
LOC: LL.ED 03:12 → LL.MS 04:49
PROVIDERS: ADMIT Family Medicine; ATTEND Family Medicine
DX: A08.4 Viral intestinal infection, unspecified (principal); E11.22 Type 2 diabetes mellitus with diabetic chronic kidney disease; E11.21 Type 2 diabetes mellitus with diabetic nephropathy; E11.42 Type 2 diabetes mellitus with diabetic polyneuropathy; K92.0 Hematemesis; I50.9 Heart failure, unspecified; E11.621 Type 2 diabetes mellitus with foot ulcer; L97.519 Non-pressure chronic ulcer of other part of right foot with unspecified severity; E88.09 Other disorders of plasma-protein metabolism, not elsewhere classified; E87.1 Hypo-osmolality and hyponatremia; E83.39 Other disorders of phosphorus metabolism; E83.42 Hypomagnesemia; K76.0 Fatty (change of) liver, not elsewhere classified; E86.0 Dehydration; E78.00 Pure hypercholesterolemia, unspecified; E78.5 Hyperlipidemia, unspecified; K59.09 Other constipation; K21.9 Gastro-esophageal reflux disease without esophagitis; N18.9 Chronic kidney disease, unspecified; I73.9 Peripheral vascular disease, unspecified; D64.9 Anemia, unspecified; F17.200 Nicotine dependence, unspecified, uncomplicated; K02.9 Dental caries, unspecified; K27.9 Peptic ulcer, site unspecified, unspecified as acute or chronic, without hemorrhage or perforation; J44.9 Chronic obstructive pulmonary disease, unspecified; M15.9 Polyosteoarthritis, unspecified; F41.9 Anxiety disorder, unspecified; F32.9 Major depressive disorder, single episode, unspecified; F43.10 Post-traumatic stress disorder, unspecified; G47.00 Insomnia, unspecified; E87.6 Hypokalemia; G43.909 Migraine, unspecified, not intractable, without status migrainosus; M54.5 Low back pain; G89.29 Other chronic pain; R53.1 Weakness; J30.9 Allergic rhinitis, unspecified; H54.7 Unspecified visual loss; Z88.6 Allergy status to analgesic agent; Z86.14 Personal history of Methicillin resistant Staphylococcus aureus infection; Z79.82 Long term (current) use of aspirin; Z87.440 Personal history of urinary (tract) infections; Z79.4 Long term (current) use of insulin; Z79.899 Other long term (current) drug therapy; Z89.411 Acquired absence of right great toe
CPT/HCPCS: 36415; 74022; 80048; 80053; 80305; 81001; 81003; 82009; 82150; 82272; 82607; 82728; 82962; 83036; 83540; 83550; 83605; 83690; 83735; 84100; 84466; 84550; 85025; 85610; 85730; 87040; 87086; 87338; 87804; 96365; 96367; 96375; 99285; A9270-GY; C9113; J0696; J1815; J1815-GY; J2405; J2550; J2765; J7030; J7050; J7120; S0028

== ENCOUNTER 2018-01-08 13:50 | Emergency (ER) | payer BC ==
[2018-01-08] MEDS ORDERED: Sodium Chloride 0.9% 10 ML Syringe FLUSH PRN (14:13)
[2018-01-08 14:47] LABS: CHLORIDE,CL 98 mmol/L (98-107); SODIUM,NA 131 mmol/L (136-145)
[2018-01-08] MEDS ORDERED: Ketorolac 30 MG/ML SDV IVPUSH ONE (15:14)
[2018-01-08] MEDS ORDERED: Sodium Chloride 0.9% 1,000 ML IV ONE (15:14)
[2018-01-08] MEDS ORDERED: Insulin Regular, Human 100 Units/ML 3 ML Vial SUBCUT ONE ×3 (15:14→17:04)
[2018-01-08] MEDS ORDERED: Promethazine 25 MG/ML SDV IM ONE (15:15)
[2018-01-08 15:16] VITALS: BP 144/93
[2018-01-08] MEDS ORDERED: Morphine 10 MG/ML Syringe SUBCUT ONE ×2 (15:16→16:41)
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
== END 2018-01-08 17:30 | disposition home or self-care (01) ==
LOC: LL.ED 13:50
DX: Z77.120 Contact with and (suspected) exposure to mold (toxic) (principal); R51 Headache; R79.1 Abnormal coagulation profile; E87.1 Hypo-osmolality and hyponatremia; E11.65 Type 2 diabetes mellitus with hyperglycemia; E78.00 Pure hypercholesterolemia, unspecified; Z88.5 Allergy status to narcotic agent; Z87.891 Personal history of nicotine dependence; Z79.4 Long term (current) use of insulin
CPT/HCPCS: 36415; 70450; 71046; 80053; 81001; 82550; 82553; 82962; 83735; 84484; 85025; 85379; 93005; 96361; 96372; 96374; 99285; J1815-GY; J1885; J2270; J2550; J7030; J7050

== ENCOUNTER 2018-10-18 08:05 | Emergency (ER) | payer BC, MEDICAID ==
[2018-10-18] MEDS ORDERED: Sodium Chloride 0.9% 10 ML Syringe FLUSH PRN (08:10)
[2018-10-18] MEDS ORDERED: Famotidine 20 MG/2 ML SDV IVPUSH ONE (08:10)
--- NOTE | 2018-10-18 08:10 | EDM.PDOC ---
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 861811195 Code(s): R79.89 - OTHER SPECIFIED ABNORMAL FINDINGS OF BLOOD CHEMISTRY Status: Chronic Priority: High Current Visit: Yes Annotation/Comment:: Known history of previous d-dimer elevation. Note probable CVA versus TIA secondary to improving symptoms as above. Further workup by accepting providers. No clinical evidence of DVT or PE, however. (3) Hypoalbuminemia SNOMED Code(s): 758656051 Code(s): E88.09 - OTH DISORDERS OF PLASMA-PROTEIN METABOLISM, NEC Status: Chronic Priority: Medium Current Visit: Yes Onset Date: 01/17/17 Annotation/Comment:: Mild chronic hypoalbuminemia. Once again and consider twice a day high-protein Glucerna supplements as snacks. (4) COPD (chronic obstructive pulmonary disease) SNOMED Code(s): 41440696 Code(s): J44.9 - CHRONIC OBSTRUCTIVE PULMONARY DISEASE, UNSPECIFIED Status : Chronic Priority: Medium Current Visit: Yes Annotation/Comment:: COPD by chest x-ray with no significant recent bronchitic type symptoms, fever, etc. No evidence of aspiration. 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 (6) Osteoarthritis SNOMED Code(s): 145414901 Code(s): M19.90 - UNSPECIFIED OSTEOARTHRITIS, UNSPECIFIED SITE Status: Chronic Priority: Medium Current Visit: Yes Annotation/Comment:: Note current left foot Charcot fracture with foot to therapy. Otherwise stable by history. Qualifiers: Osteoarthritis location: multiple joints Osteoarthritis type: primary Qualified Code(s): M15.0 - Primary generalized (osteo)arthritis (7) Peptic reflux disease SNOMED Code(s): 736685345 Code(s): K21.9 - GASTRO-ESOPHAGEAL REFLUX DISEASE WITHOUT ESOPHAGITIS Status: Chronic Priority: Medium Current Visit: Yes Annotation/Comment:: Stable by history. (8) Tobacco abuse counseling SNOMED Code(s): 411184219, 312878444, 268161220 Code(s): Z71.6 - TOBACCO ABUSE COUNSELING Status: Chronic Priority: Medium Current Visit: Yes Annotation/Comment:: Tobacco cessation information has been provided to the patient in the past through this facility with tobacco cessation once again strongly encouraged. (9) Mixed anxiety depressive disorder SNOMED Code(s): 622177273 Code(s): F41.8 - OTHER SPECIFIED ANXIETY DISORDERS Status: Chronic Priority: Medium Current Visit: Yes Annotation/Comment:: Stable by history. (10) Hyperlipidemia SNOMED Code(s): 62822016 Code(s): E78.5 - HYPERLIPIDEMIA, UNSPECIFIED Status: Chronic Priority: Medium Current Visit: Yes Annotation/Comment:: Currently under therapy. Qualifiers: Hyperlipidemia type: unspecified Qualified Code(s): E78.5 - Hyperlipidemia , unspecified (11) Hypertension SNOMED Code(s): 86499448 Code(s): I10 - ESSENTIAL (PRIMARY) HYPERTENSION Status: Chronic Priority : Medium Current Visit: Yes Annotation/Comment:: Currently under therapy. Note that the patient did not take her medications this morning. Blood pressure stable during emergency room care. Qualifiers: Hypertension type: essential hypertension Qualified Code(s): I10 - Essential (primary) hypertension - Problem List Review Problem List Initiated/Reviewed/Updated: Yes - My Orders Last 24 Hours: My Active Orders 10/18/18 08:10 Blood Glucose Check, Bedside [RC] STAT Cardiac Monitoring [RC] STAT EKG Documentation Completion [RC] ASDIRECTED NIH Stroke Scale [RC] ASDIRECTED Oxygen Therapy, ED [RC] CONTINUOUS Peripheral IV Care [RC] . DIRECTED Pulse Oximetry [RC] CONTINUOUS Up With Assistance [RC] ASDIRECTED Vital Signs [RC] PFP Chest 1V Frontal [CR] Stat Head wo Cont [CT] Stat UA W/MICROSCOPIC [URIN] Stat Sodium Chloride 0.9% [Saline Flush] 10 ml FLUSH ASDIRECTED PRN Obtain Past Medical Record [OM.PC] Stat Peripheral IV Insertion Adult [OM.PC] Stat Resuscitation Status Stat 10/18/18 08:14 PROLACTIN [REF] Stat 10/18/18 Breakfast Nothing per Oral Now Diet [DIET] - Assessment/Plan Last 24 Hours: My Active Orders 10/18/18 08:10 Blood Glucose Check, Bedside [RC] STAT Cardiac Monitoring [RC] STAT EKG Documentation Completion [RC] ASDIRECTED NIH Stroke Scale [RC] ASDIRECTED Oxygen Therapy, ED [RC] CONTINUOUS Peripheral IV Care [RC] . DIRECTED Pulse Oximetry [RC] CONTINUOUS Up With Assistance [RC] ASDIRECTED Vital Signs [RC] PFP Chest 1V Frontal [CR] Stat Head wo Cont [CT] Stat UA W/MICROSCOPIC [URIN] Stat Sodium Chloride 0.9% [Saline Flush] 10 ml FLUSH ASDIRECTED PRN Obtain Past Medical Record [OM.PC] Stat Peripheral IV Insertion Adult [OM.PC] Stat Resuscitation Status Stat 10/18/18 08:14 PROLACTIN [REF] Stat 10/18/18 Breakfast Nothing per Oral Now Diet [DIET] Assessment:: As above Plan: As above. Extensive precautions were given to the patient and her family, who are in agreement with the treatment plan. Ambulance transfer to with delivery of shopping news accompaniment.
[2018-10-18] MEDS ORDERED: Aspirin 81 MG Tab.Chew CHEW ONE (08:37)
[2018-10-18 08:46] LABS: CHLORIDE,CL 104 mmol/L (98-107); SODIUM,NA 140 mmol/L (136-145)
== END 2018-10-18 09:05 ==
LOC: LL.ED 08:05
DX: I63.9 Cerebral infarction, unspecified (principal); R79.89 Other specified abnormal findings of blood chemistry; E88.09 Other disorders of plasma-protein metabolism, not elsewhere classified; J44.9 Chronic obstructive pulmonary disease, unspecified; M19.90 Unspecified osteoarthritis, unspecified site; K21.9 Gastro-esophageal reflux disease without esophagitis; F41.8 Other specified anxiety disorders; E78.5 Hyperlipidemia, unspecified; I10 Essential (primary) hypertension; Z71.6 Tobacco abuse counseling; F17.210 Nicotine dependence, cigarettes, uncomplicated; Z79.82 Long term (current) use of aspirin; Z79.4 Long term (current) use of insulin; Z79.899 Other long term (current) drug therapy; Z88.6 Allergy status to analgesic agent
CPT/HCPCS: 36415; 70450; 71045; 80053; 82550; 82553; 83605; 83735; 83880; 84146; 84443; 84484; 84550; 85025; 85379; 85610; 85730; 93005; 96374; 99291; A9270; J3490